=== PATIENT | male | born 1955 | race Caucasian/White ===

== ENCOUNTER 2016-07-14 09:06 | Emergency (ER) | payer MEDICARE, OTHER ==
[2016-07-14 09:14] VITALS: BP 181/101; PULSE 64; RESP 16; TEMP 97.3
--- NOTE | 2016-07-14 09:23 | ED ---
General Adult HPI - General Chief complaint: Skin/Abscess/Foreign Body Stated complaint: LEFT INDEX FINGER PROBLEM, NO TRAUMA Time Seen by Provider: 07/14/16 09:15 Source: patient, RN notes reviewed Mode of arrival: ambulatory Limitations: no limitations - History of Present Illness Initial comments: Patient is a 60-year-old male who presents emergency room today with a chief complaint of some dry skin to the left index finger. He states started 2 weeks ago. He admits that he had something similar in the past and was able to take care of at home. He states tried some Neosporin. He states tried multiple lotions. He states still seems to be trying out and the skin cracking and peeling. Patient does admit to some mild tenderness locally to the area with a burning type sensation at times. He denies any injury or trauma. He denies any other complaints associated symptoms. Patient denies any recent fever, chills, shortness of breath, chest pain, back pain, abdominal pain, nausea or vomiting, dysuria or hematuria, constipation or diarrhea, headaches or visual changes, or any other complaints. - Related Data Home Medications Medication Instructions Recorded Confirmed Atenolol [Atenolol] 100 mg PO DAILY 08/08/15 07/14/16 Cholecalciferol (Vitamin D3) 2,000 unit PO DAILY 08/08/15 07/14/16 [Vitamin D] Levothyroxine Sodium [Synthroid] 100 mcg PO DAILY 08/08/15 07/14/16 Lisinopril [Lisinopril] 40 mg PO DAILY 08/08/15 07/14/16 Ranitidine HCl [Zantac] 150 mg PO BID 08/08/15 07/14/16 Tamsulosin [Flomax] 0.4 mg PO DAILY 08/08/15 07/14/16 metFORMIN HCL [metFORMIN HCL] 1,000 mg PO AC-BID 08/08/15 07/14/16 Atorvastatin [Lipitor] 10 mg PO HS 02/29/16 07/14/16 glipiZIDE [Glucotrol] 5 mg PO AC-BRKFST 02/29/16 07/14/16 Previous Rx's Medication Instructions Recorded Azithromycin [Zithromax Tri-Florentin] 500 mg PO DAILY #3 tab 06/10/16 Mupirocin 2% Oint [Bactroban Oint] 1 applic TOPICAL TID #1 gm 07/14/16 Allergies Allergy/AdvReac Type Severity Reaction Status Date / Time Sulfa (Sulfonamide AdvReac Nausea & Verified 07/14/16 09:14 Antibiotics) Vomiting Review of Systems ROS Statement: Those systems with pertinent positive or pertinent negative responses have been documented in the HPI. ROS Other: All systems not noted in ROS Statement are negative. Past Medical History Past Medical History: Cancer, Diabetes Mellitus, Hyperlipidemia, Hypertension, Thyroid Disorder Additional Past Medical History / Comment(s): chronic back pain, colon CA, enlarged prostate History of Any Multi-Drug Resistant Organisms: None Reported Past Surgical History: Bowel Resection, Cholecystectomy Past Psychological History: No Psychological Hx Reported Smoking Status: Former smoker Past Alcohol Use History: None Reported Past Drug Use History: None Reported General Exam - General Exam Comments Initial Comments: General: The patient is awake and alert, in no distress, and does not appear acutely ill. Eye: Pupils are equal, round and reactive to light, extra-ocular movements are intact. No nystagmus. There is normal conjunctiva bilaterally. No signs of icterus. Neck: The neck is supple. Cardiovascular: There is a regular rate and rhythm. No murmur, rub or gallop is appreciated. Respiratory: Lungs are clear to auscultation, respirations are non-labored, breath sounds are equal. No wheezes, stridor, rales, or rhonchi. Musculoskeletal: Normal ROM, no tenderness. Strength 5/5. Sensation intact. Pulses equal bilaterally 2+. Neurological: A&O x 3. CN II-XII intact, There are no obvious motor or sensory deficits. Coordination appears grossly intact. Speech is normal. Skin: Patient does have some dried cracking and flaking skin of the distal aspect of the left index finger just above and below the DIP joint area. There is no deep tissue involvement. It is superficial. Sensations are intact. Refill less than 2 seconds. No lymphangitic streaking. Limitations: no limitations Course Vital Signs 07/14/16 09:12 Temperature 97.3 F L Pulse Rate 64 Respiratory 16 Rate Blood Pressure 181/101 O2 Sat by Pulse 98 Oximetry Disposition Clinical Impression: Dry skin dermatitis Disposition: HOME SELF-CARE Condition: Good Additional Instructions: Please use antibiotic cream as prescribed. Please follow-up the family doctor if symptoms are unimproved over the next 2-5 days. Please return to the emergency room symptoms increase or worsen or for any other concerns. Prescriptions: Mupirocin 2% Oint [Bactroban Oint] 1 applic TOPICAL TID #1 gm Time of Disposition: 09:23
== END 2016-07-14 09:31 | disposition home or self-care (01) ==
LOC: EC 09:06
DX: L85.3 Xerosis cutis (principal); E07.9 Disorder of thyroid, unspecified; E11.9 Type 2 diabetes mellitus without complications; N40.0 Benign prostatic hyperplasia without lower urinary tract symptoms; I10 Essential (primary) hypertension; G89.29 Other chronic pain; M54.9 Dorsalgia, unspecified; E78.5 Hyperlipidemia, unspecified; Z79.899 Other long term (current) drug therapy; Z79.84 Long term (current) use of oral hypoglycemic drugs; Z88.2 Allergy status to sulfonamides; Z85.038 Personal history of other malignant neoplasm of large intestine; Z87.891 Personal history of nicotine dependence
CPT/HCPCS: 83036; 84439; 99282

== ENCOUNTER → 2016-07-14 | Outpatient (CLI) | payer MEDICARE, OTHER ==
[2016-07-14 09:15] LABS: CH 32.5; CHCM 36.3; HCT 43.7 % (39.0-53.0); HDW 3.02; HGB 15.3 gm/dL (13.0-17.5); MCH 31.4 pg (25.0-35.0); MCHC 34.9 g/dL (31.0-37.0); MCV 90.1 fL (80.0-100.0); Mean Platelet Volume 8.2; RBC 4.86 m/uL (4.30-5.90); RDW 13.2 % (11.5-15.5); WBC 4.2 k/uL (3.8-10.6)
[2016-07-14 09:31] LABS: Appearance,Urine Clear (Clear); Bilirubin,Urine Negative (Negative); Glucose,Urine (UA) Negative (Negative); Ketones,Urine Negative (Negative); Leukocyte Esterase,Urine Negative (Negative); Nitrite,Urine Negative (Negative); Protein,Urine Negative (Negative); Specific Gravity,Urine 1.014 (1.001-1.035); UA Billing (MACRO vs. MICRO) CHEM; Urobilinogen,Urine <2.0 mg/dL (<2.0)
[2016-07-14 10:54] LABS: ALT 40 U/L (21-72); AST 18 U/L (17-59); Alkaline Phosphatase 128 U/L (38-126); Anion Gap 11 mmol/L; Blood Urea Nitrogen 11 mg/dL (9-20); Carbon Dioxide 23 mmol/L (22-30); Chloride 106 mmol/L (98-107); Cholesterol 87 mg/dL (<200); Glucose 150 mg/dL (74-99); HDL Cholesterol 37 mg/dL (40-60); Non-African American GFR(MDRD) >60 (>60 ml/min/1.73 sqM); Potassium 4.4 mmol/L (3.5-5.1); Sodium 140 mmol/L (137-145); Total Bilirubin 0.9 mg/dL (0.2-1.3); Total Protein 6.9 g/dL (6.3-8.2); Triglycerides 164 mg/dL (<150)
[2016-07-14 11:27] LABS: Prostate Specific Antigen 0.61 ng/mL (0.00-4.00)
[2016-07-14 11:28] LABS: Hemoglobin A1C 6.2 % (4.2-6.1)
== END | disposition home or self-care (01) ==
LOC: LABWHC1 08:40
PROVIDERS: ATTEND Family Medicine
DX: Z00.01 Encounter for general adult medical examination with abnormal findings (principal); E03.9 Hypothyroidism, unspecified; E11.9 Type 2 diabetes mellitus without complications
CPT/HCPCS: 36415; 80053; 80061; 81003; 82043; 82272; 83036; 84153; 84439; 84443; 85027

== ENCOUNTER 2016-08-06 08:51 | Emergency (ER) | payer MEDICARE, OTHER ==
[2016-08-06 09:01] VITALS: BP 166/86; PULSE 69; RESP 17; TEMP 96.8
--- NOTE | 2016-08-06 09:14 | ED ---
Upper Extremity HPI - General Chief Complaint: Extremity Injury, Upper Stated Complaint: hand pain Time Seen by Provider: 08/06/16 09:05 Source: patient, RN notes reviewed Mode of arrival: ambulatory Limitations: no limitations - History of Present Illness Initial Comments: 60-year-old male presents emergency Department with chief complaint of left hand pain. Patient states she's been having problems over the last 4 or so days. Patient states he has pain when he takes a fist along his second third and fourth digit at the MCPs. Patient denies any trauma. Patient has redness, bruising, paresthesias. Patient states that nothing really seems to make it feel better at this time other than rest. Patient states he is left-hand dominant though he has not done anything out of the usual over the last week. - Related Data Home Medications Medication Instructions Recorded Confirmed Atenolol [Atenolol] 100 mg PO DAILY 08/08/15 07/14/16 Cholecalciferol (Vitamin D3) 2,000 unit PO DAILY 08/08/15 07/14/16 [Vitamin D] Levothyroxine Sodium [Synthroid] 100 mcg PO DAILY 08/08/15 07/14/16 Lisinopril [Lisinopril] 40 mg PO DAILY 08/08/15 07/14/16 Ranitidine HCl [Zantac] 150 mg PO BID 08/08/15 07/14/16 Tamsulosin [Flomax] 0.4 mg PO DAILY 08/08/15 07/14/16 metFORMIN HCL [metFORMIN HCL] 1,000 mg PO AC-BID 08/08/15 07/14/16 Atorvastatin [Lipitor] 10 mg PO HS 02/29/16 07/14/16 glipiZIDE [Glucotrol] 5 mg PO AC-BRKFST 02/29/16 07/14/16 Previous Rx's Medication Instructions Recorded Azithromycin [Zithromax Tri-Florentin] 500 mg PO DAILY #3 tab 06/10/16 Mupirocin 2% Oint [Bactroban Oint] 1 applic TOPICAL TID #1 gm 07/14/16 Ibuprofen [Motrin] 600 mg PO Q8HR PRN #30 tab 08/06/16 Allergies Allergy/AdvReac Type Severity Reaction Status Date / Time Sulfa (Sulfonamide AdvReac Nausea & Verified 07/14/16 09:14 Antibiotics) Vomiting Review of Systems ROS Statement: Those systems with pertinent positive or pertinent negative responses have been documented in the HPI. ROS Other: All systems not noted in ROS Statement are negative. Past Medical History Past Medical History: Cancer, Diabetes Mellitus, Hyperlipidemia, Hypertension, Thyroid Disorder Additional Past Medical History / Comment(s): chronic back pain, colon CA, enlarged prostate History of Any Multi-Drug Resistant Organisms: None Reported Past Surgical History: Bowel Resection, Cholecystectomy Past Psychological History: No Psychological Hx Reported Smoking Status: Former smoker Past Alcohol Use History: None Reported Past Drug Use History: None Reported General Exam Limitations: no limitations General appearance: alert, in no apparent distress Head exam: Present: atraumatic, normocephalic, normal inspection Respiratory exam: Present: normal lung sounds bilaterally. Absent: respiratory distress, wheezes, rales, rhonchi, stridor Cardiovascular Exam: Present: regular rate, normal rhythm, normal heart sounds. 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 Absent: motor sensory deficit Course Vital Signs 08/06/16 08:58 Temperature 96.8 F L Pulse Rate 69 Respiratory 17 Rate Blood Pressure 166/86 O2 Sat by Pulse 94 L Oximetry Medical Decision Making - Medical Decision Making 60-year-old male presented for left hand pain. There is no acute osseous lesion no trauma. He has no erythema no evidence of infection. This may be related to tendinitis or an atypical presentation of carpal tunnel. Patient was started on anti-inflammatories at this time as he is diabetic and steroids will not be a good option. Patient will follow-up with primary care physician return parameters were discussed. Disposition Clinical Impression: Left hand pain Disposition: HOME SELF-CARE Condition: Stable Instructions: Hand Sprain (ED) Additional Instructions: Please return to the Emergency Department if symptoms worsen or any other concerns. Prescriptions: Ibuprofen [Motrin] 600 mg PO Q8HR PRN #30 tab PRN Reason: Pain Time of Disposition: 09:44
--- NOTE | 2016-08-06 09:35 | XR ---
EXAMINATION TYPE: XR hand complete LT DATE OF EXAM: 08/06/2016 9:32 AM COMPARISON: NONE HISTORY: [id number] male hand pain and swelling, third, fourth, and fifth fingers. TECHNIQUE: 3 views FINDINGS: No marginal erosions or soft tissue calcification seen. No acute fracture, subluxation, or dislocatio n. Mild degenerative changes seen at the base of the thumb and minimal osteoarthritic spurring such a s at the fourth DIP joint. IMPRESSION: No acute osseous abnormality seen.
== END 2016-08-06 10:08 | disposition home or self-care (01) ==
LOC: EC 08:51
DX: M79.642 Pain in left hand (principal); E11.9 Type 2 diabetes mellitus without complications; E07.9 Disorder of thyroid, unspecified; E78.5 Hyperlipidemia, unspecified; I10 Essential (primary) hypertension; N40.0 Benign prostatic hyperplasia without lower urinary tract symptoms; Z79.899 Other long term (current) drug therapy; Z88.2 Allergy status to sulfonamides; Z85.038 Personal history of other malignant neoplasm of large intestine; Z79.84 Long term (current) use of oral hypoglycemic drugs; Z87.891 Personal history of nicotine dependence; X58.XXXA Exposure to other specified factors, initial encounter
CPT/HCPCS: 99283

== ENCOUNTER 2016-12-12 13:45 | Emergency (ER) | payer MEDICARE, OTHER ==
[2016-12-12] MEDS ORDERED: SODIUM CHLORIDE 0.9% 500 ML IV STA (14:12)
[2016-12-12] MEDS ORDERED: ONDANSETRON 4 MG/2 ML VIAL IVP STA (14:12)
[2016-12-12] MEDS ORDERED: SODIUM CHLORIDE 0.9% 1,000 ML IV STA ×3 (14:12→15:11)
[2016-12-12] MEDS ORDERED: MORPHINE SULFATE 4 MG/ML SYRINGE IV STA (14:12)
--- NOTE | 2016-12-12 14:20 | ED ---
General Adult HPI - General Chief complaint: Abdominal Pain Stated complaint: Weakness Time Seen by Provider: 12/12/16 14:12 Source: patient, RN notes reviewed, old records reviewed Mode of arrival: ambulatory Limitations: no limitations - History of Present Illness Initial comments: This is a 61-year-old nausea for the abdominal pain. Patient presented with weakness lightheadedness dizziness. Heart racing abdominal pain diarrhea and not feeling well. Patient does have a significant medical history but no recent similar symptoms. No he did feel feverish and did feel sweaty. Denies chest pain or shortness of breath. Mild nausea no vomiting. No versus a catheter travel history. Again no fever. Patient ate tonight and then began to feel slightly and not well. - Related Data Home Medications Medication Instructions Recorded Confirmed Atenolol [Atenolol] 50 mg PO DAILY 08/08/15 12/12/16 Cholecalciferol (Vitamin D3) 2,000 unit PO HS 08/08/15 12/12/16 [Vitamin D] Levothyroxine Sodium [Synthroid] 100 mcg PO DAILY 08/08/15 12/12/16 Lisinopril [Lisinopril] 40 mg PO DAILY 08/08/15 12/12/16 Ranitidine HCl [Zantac] 150 mg PO BID 08/08/15 12/12/16 Tamsulosin [Flomax] 0.4 mg PO HS 08/08/15 12/12/16 metFORMIN HCL [metFORMIN HCL] 500 mg PO AC-BID 08/08/15 12/12/16 Atorvastatin [Lipitor] 10 mg PO MOWEFR 02/29/16 12/12/16 glipiZIDE [Glucotrol] 5 mg PO DAILY 02/29/16 12/12/16 Allergies Allergy/AdvReac Type Severity Reaction Status Date / Time Sulfa (Sulfonamide AdvReac Nausea & Verified 12/12/16 14:46 Antibiotics) Vomiting Review of Systems ROS Statement: Those systems with pertinent positive or pertinent negative responses have been documented in the HPI. ROS Other: All systems not noted in ROS Statement are negative. Past Medical History Past Medical History: Cancer, Diabetes Mellitus, Hyperlipidemia, Hypertension, Thyroid Disorder Additional Past Medical History / Comment(s): chronic back pain, colon CA, enlarged prostate History of Any Multi-Drug Resistant Organisms: None Reported Past Surgical History: Bowel Resection, Cholecystectomy Past Psychological History: No Psychological Hx Reported Smoking Status: Former smoker Past Alcohol Use History: None Reported Past Drug Use History: None Reported General Exam Limitations: no limitations General appearance: alert, in no apparent distress Head exam: Present: atraumatic, normocephalic, normal inspection Eye exam: Present: normal appearance, PERRL, EOMI. Absent: scleral icterus, conjunctival injection, periorbital swelling ENT exam: Present: normal exam, mucous membranes moist Neck exam: Present: normal inspection. Absent: tenderness, meningismus, lymphadenopathy Respiratory exam: Present: normal lung sounds bilaterally. Absent: respiratory distress, wheezes, rales, rhonchi, stridor Cardiovascular Exam: Present: normal rhythm, tachycardia, normal heart sounds. Absent: systolic murmur, diastolic murmur, rubs, gallop, clicks GI/Abdominal exam: Present: soft, normal bowel sounds. Absent: distended, tenderness, guarding, rebound, rigid Extremities exam: Present: normal inspection, full ROM, normal capillary refill. Absent: tenderness, pedal edema, joint swelling, calf tenderness Back exam: Present: normal inspection Neurological exam: Present: alert, oriented X3, CN II-XII intact Psychiatric exam: Present: normal affect, normal mood Skin exam: Present: warm, dry, intact, normal color. Absent: rash Course Vital Signs 12/12/16 12/12/16 14:05 14:07 Temperature 97.5 F L Pulse Rate 115 H Respiratory 18 Rate Blood Pressure 190/107 186/104 O2 Sat by Pulse 96 Oximetry Medical Decision Making - Medical Decision Making 61 male to the ER for evaluation of abdominal pain, nausea, diaphoresis and diarrhea. At this point patient's symptoms are completely resolved, lab work and CT abdomen and pelvis are negative for acute disease. Patient is okay for discharge over this time he has no complaints - Lab Data Result diagrams: 12/12/16 14:28 12/12/16 14:28 Lab Results 12/12/16 12/12/16 12/12/16 Range/Units 14:28 14:28 14:28 WBC 6.8 (3.8-10.6) k/uL RBC 4.66 (4.30-5.90) m/uL Hgb 15.5 (13.0-17.5) gm/dL Hct 42.0 (39.0-53.0) % MCV 90.1 (80.0-100.0) fL MCH 33.2 (25.0-35.0) pg MCHC 36.8 (31.0-37.0) g/dL RDW 12.9 (11.5-15.5) % Plt Count 227 (150-450) k/uL Neutrophils % 69 % Lymphocytes % 18 % Monocytes % 6 % Eosinophils % 3 % Basophils % 1 % Neutrophils # 4.8 (1.3-7.7) k/uL Lymphocytes # 1.2 (1.0-4.8) k/uL Monocytes # 0.4 (0-1.0) k/uL Eosinophils # 0.2 (0-0.7) k/uL Basophils # 0.1 (0-0.2) k/uL PT (9.0-12.0) sec INR (<1.1) APTT (22.0-30.0) sec Sodium 140 (137-145) mmol/L Potassium 3.7 (3.5-5.1) mmol/L Chloride 103 (98-107) mmol/L Carbon Dioxide 23 (22-30) mmol/L Anion Gap 14 mmol/L BUN 13 (9-20) mg/dL Creatinine 0.85 (0.66-1.25) mg/dL Est GFR (MDRD) Af Amer >60 (>60 ml/min/1.73 sqM) Est GFR (MDRD) Non-Af >60 (>60 ml/min/1.73 sqM) Glucose 208 H (74-99) mg/dL Plasma Lactic Acid Ari (0.7-2.0) mmol/L Calcium 9.3 (8.4-10.2) mg/dL Total Bilirubin 1.0 (0.2-1.3) mg/dL AST 27 (17-59) U/L ALT 48 (21-72) U/L Alkaline Phosphatase 152 H (38-126) U/L Total Creatine Kinase 91 (55-170) U/L CK-MB (CK-2) 1.0 (0.0-2.4) ng/mL CK-MB (CK-2) Rel Index 1.1 Troponin I <0.012 (0.000-0.034) ng/mL Total Protein 7.2 (6.3-8.2) g/dL Albumin 4.5 (3.5-5.0) g/dL Amylase <30 L (30-110) U/L Lipase 86 (23-300) U/L Urine Color Urine Appearance (Clear) Urine pH (5.0-8.0) Ur Specific Topping (1.001-1.035) Urine Protein (Negative) Urine Glucose (UA) (Negative) Urine Ketones (Negative) Urine Blood (Negative) Urine Nitrite (Negative) Urine Bilirubin (Negative) Urine Urobilinogen (<2.0) mg/dL Ur Leukocyte Esterase (Negative) Urine WBC (0-5) /hpf Ur Squamous Epith Cells (0-4) /hpf Amorphous Sediment (None) /hpf Urine Mucus (None) /hpf 12/12/16 12/12/16 12/12/16 Range/Units 14:28 14:35 14:58 WBC (3.8-10.6) k/uL RBC (4.30-5.90) m/uL Hgb (13.0-17.5) gm/dL Hct (39.0-53.0) % MCV (80.0-100.0) fL MCH (25.0-35.0) pg MCHC (31.0-37.0) g/dL RDW (11.5-15.5) % Plt Count (150-450) k/uL Neutrophils % % Lymphocytes % % Monocytes % % Eosinophils % % Basophils % % Neutrophils # (1.3-7.7) k/uL Lymphocytes # (1.0-4.8) k/uL Monocytes # (0-1.0) k/uL Eosinophils # (0-0.7) k/uL Basophils # (0-0.2) k/uL PT 10.4 (9.0-12.0) sec INR 1.0 (<1.1) APTT 28.4 (22.0-30.0) sec Sodium (137-145) mmol/L Potassium (3.5-5.1) mmol/L Chloride (98-107) mmol/L Carbon Dioxide (22-30) mmol/L Anion Gap mmol/L BUN (9-20) mg/dL Creatinine (0.66-1.25) mg/dL Est GFR (MDRD) Af Amer (>60 ml/min/1.73 sqM) Est GFR (MDRD) Non-Af (>60 ml/min/1.73 sqM) Glucose (74-99) mg/dL Plasma Lactic Acid Ari 3.1 H* (0.7-2.0) mmol/L Calcium (8.4-10.2) mg/dL Total Bilirubin (0.2-1.3) mg/dL AST (17-59) U/L ALT (21-72) U/L Alkaline Phosphatase (38-126) U/L Total Creatine Kinase (55-170) U/L CK-MB (CK-2) (0.0-2.4) ng/mL CK-MB (CK-2) Rel Index Troponin I (0.000-0.034) ng/mL Total Protein (6.3-8.2) g/dL Albumin (3.5-5.0) g/dL Amylase (30-110) U/L Lipase (23-300) U/L Urine Color Yellow Urine Appearance Clear (Clear) Urine pH 5.0 (5.0-8.0) Ur Specific Topping 1.015 (1.001-1.035) Urine Protein Trace H (Negative) Urine Glucose (UA) Negative (Negative) Urine Ketones Negative (Negative) Urine Blood Trace H (Negative) Urine Nitrite Negative (Negative) Urine Bilirubin Negative (Negative) Urine Urobilinogen <2.0 (<2.0) mg/dL Ur Leukocyte Esterase Negative (Negative) Urine WBC 1 (0-5) /hpf Ur Squamous Epith Cells <1 (0-4) /hpf Amorphous Sediment Rare H (None) /hpf Urine Mucus Rare H (None) /hpf - Radiology Data Radiology results: report reviewed (CT pelvis negative for acute disease), image reviewed Disposition Clinical Impression: Abdominal pain Disposition: HOME SELF-CARE Condition: Good Instructions: Abdominal Pain (ED) Referrals: Ant Araya DO [Primary Care Provider] - 1-2 days
[2016-12-12 14:39] LABS: Basophils # (A) 0.1 k/uL (0-0.2); Basophils % (A) 1 %; CH 33.1; CHCM 36.9; Eosinophils # (A) 0.2 k/uL (0-0.7); Eosinophils % (A) 3 %; HDW 2.96; HGB 15.5 gm/dL (13.0-17.5); Luc # (Auto) 0.16; Luc % (Auto) 2; Lymphocytes # (A) 1.2 k/uL (1.0-4.8); Lymphocytes % (A) 18 %; MCH 33.2 pg (25.0-35.0); MCHC 36.8 g/dL (31.0-37.0); MCV 90.1 fL (80.0-100.0); Mean Platelet Volume 8.5; Monocytes # (A) 0.4 k/uL (0-1.0); Monocytes % (A) 6 %; Neutrophils # (A) 4.8 k/uL (1.3-7.7); Neutrophils % (A) 69 %; RBC 4.66 m/uL (4.30-5.90); RDW 12.9 % (11.5-15.5); WBC 6.8 k/uL (3.8-10.6); WBC (Perox) 6.59
[2016-12-12 14:48] LABS: Amorphous Sediment,Urine Rare /hpf; Appearance,Urine Clear (Clear); Bilirubin,Urine Negative (Negative); Glucose,Urine (UA) Negative (Negative); Ketones,Urine Negative (Negative); Leukocyte Esterase,Urine Negative (Negative); Mucus,Urine Rare /hpf; Nitrite,Urine Negative (Negative); Particle Count 2908; Protein,Urine Trace (Negative); Specific Gravity,Urine 1.015 (1.001-1.035); Squamous Epithelial Cell,Urine <1 /hpf (0-4); UA Billing (MACRO vs. MICRO) MICRO; Urobilinogen,Urine <2.0 mg/dL (<2.0); WBC,Urine 1 /hpf (0-5)
[2016-12-12 14:50] LABS: ALT 48 U/L (21-72); AST 27 U/L (17-59); Alkaline Phosphatase 152 U/L (38-126); Amylase <30 U/L (30-110); Anion Gap 14 mmol/L; Blood Urea Nitrogen 13 mg/dL (9-20); Calcium 9.3 mg/dL (8.4-10.2); Carbon Dioxide 23 mmol/L (22-30); Chloride 103 mmol/L (98-107); Glucose 208 mg/dL (74-99); Non-African American GFR(MDRD) >60 (>60 ml/min/1.73 sqM); Potassium 3.7 mmol/L (3.5-5.1); Sodium 140 mmol/L (137-145); Total Protein 7.2 g/dL (6.3-8.2)
[2016-12-12 15:02] LABS: Creatine Kinase 91 U/L (55-170)
--- NOTE | 2016-12-12 15:03 | XR ---
EXAMINATION TYPE: XR KUB DATE OF EXAM: 12/12/2016 COMPARISON: 09/02/2012 HISTORY: Diarrhea and abdominal pain TECHNIQUE: 2 views FINDINGS: There are clips from cholecystectomy. Bowel gas pattern is normal. There is no sign of inte stinal obstruction or pneumoperitoneum. Fecal pattern is normal. There is a 1 cm calcification over t he left kidney. Lung bases are clear. IMPRESSION: Nonacute abdomen. Possible new left renal calculus compared to old exam.
[2016-12-12] MEDS ORDERED: RX INFO: IV CONTRAST WAS GIVEN 1 EACH MISC MISCELLANE PRN (15:11)
[2016-12-12 15:13] LABS: Troponin I <0.012 ng/mL (0.000-0.034)
[2016-12-12 15:18] LABS: Partial Thromboplastin Time 28.4 sec (22.0-30.0); Prothrombin Time 10.4 sec (9.0-12.0)
--- NOTE | 2016-12-12 15:44 | CT ---
EXAMINATION TYPE: CT abdomen pelvis w con DATE OF EXAM: 12/12/2016 COMPARISON: 02/29/2012 HISTORY: Generalized pain CT DLP: 2699.6 mGycm Automated exposure control for dose reduction was used. TECHNIQUE: Helical acquisition of images was performed from the lung bases through the pelvis. CONTRAST: Performed without Oral Contrast and with IV Contrast, patient injected with 100 mL of Omnipaque 300. FINDINGS: Lung bases are clear of consolidation. There is no pleural effusion. Heart is probably enlarged. There are clips from cholecystectomy. There is a 1 cm cyst in the anterior right lobe of the liver.. Spleen appears normal. Bile ducts are not dilated. There is no pancreatic mass. There is no adrenal mass. Kidneys show satisfactory contrast opacification. There is a 1.5 cm exophyt ic high density focus on the lateral left kidney consistent with an atypical cyst. This is unchanged compared to old exam. There is no hydronephrosis. There is no retroperitoneal adenopathy. There is no ascites. Appendix appears normal. I see no intestinal wall thickening. There are no dilated loops. B ladder distends smoothly. There is no bony destructive process. There is a 7 mm calculus in the left kidney. There are small multiple right renal calculi that measure up to 4 mm. There are multiple tiny cysts in the right kidney. IMPRESSION: NONOBSTRUCTING BILATERAL RENAL CALCULI. NO SIGN OF ACUTE ABDOMEN AND PELVIS. NO ADVERSE CHANGE COMPAR ED TO OLD EXAM.
[2016-12-12 16:20] VITALS: PULSE 122; RESP 15; TEMP 97.9
[2016-12-12 16:39] VITALS: BP 178/83
== END 2016-12-12 16:39 | disposition home or self-care (01) ==
LOC: EC 13:45
DX: R10.9 Unspecified abdominal pain (principal); R11.0 Nausea; R42 Dizziness and giddiness; R61 Generalized hyperhidrosis; R19.7 Diarrhea, unspecified; R53.1 Weakness; R00.2 Palpitations; E11.9 Type 2 diabetes mellitus without complications; I10 Essential (primary) hypertension; E78.5 Hyperlipidemia, unspecified; E07.9 Disorder of thyroid, unspecified; Z85.038 Personal history of other malignant neoplasm of large intestine; Z87.891 Personal history of nicotine dependence; Z79.84 Long term (current) use of oral hypoglycemic drugs; Z79.899 Other long term (current) drug therapy; Z88.2 Allergy status to sulfonamides
CPT/HCPCS: 36415; 80053; 82150; 82550; 82553; 83605; 83690; 84484; 85025; 85610; 85730; 81001; 87086; 74000; 74177; 99285; 96374; 96375; 96360; 96361 ×2; J2270; J2405; Q9967

== ENCOUNTER 2017-01-04 04:59 | Emergency (ER) | payer MEDICARE, OTHER ==
--- NOTE | 2017-01-04 05:19 | ED ---
General Adult HPI - General Chief complaint: ENT Stated complaint: Sore Throat/Nausea Time Seen by Provider: 01/04/17 05:10 Source: patient, RN notes reviewed Mode of arrival: wheelchair Limitations: no limitations - History of Present Illness Initial comments: Patient is a pleasant 61-year-old male presenting to the emergency department with sore throat. Patient states onset was last night. Symptoms have progressed. Throat feels scratchy. Patient also has congestion. Patient has some sinus congestion. Patient denies any chest discomfort or difficulty in breathing. - Related Data Home Medications Medication Instructions Recorded Confirmed Atenolol [Atenolol] 50 mg PO DAILY 08/08/15 12/12/16 Cholecalciferol (Vitamin D3) 2,000 unit PO HS 08/08/15 12/12/16 [Vitamin D] Levothyroxine Sodium [Synthroid] 100 mcg PO DAILY 08/08/15 12/12/16 Lisinopril [Lisinopril] 40 mg PO DAILY 08/08/15 12/12/16 Ranitidine HCl [Zantac] 150 mg PO BID 08/08/15 12/12/16 Tamsulosin [Flomax] 0.4 mg PO HS 08/08/15 12/12/16 metFORMIN HCL [metFORMIN HCL] 500 mg PO AC-BID 08/08/15 12/12/16 Atorvastatin [Lipitor] 10 mg PO MOWEFR 02/29/16 12/12/16 glipiZIDE [Glucotrol] 5 mg PO DAILY 02/29/16 12/12/16 Previous Rx's Medication Instructions Recorded Amoxicillin 500 mg PO Q8H #30 capsule 01/04/17 Allergies Allergy/AdvReac Type Severity Reaction Status Date / Time Sulfa (Sulfonamide AdvReac Nausea & Verified 12/12/16 14:46 Antibiotics) Vomiting Review of Systems ROS Statement: Those systems with pertinent positive or pertinent negative responses have been documented in the HPI. ROS Other: All systems not noted in ROS Statement are negative. Constitutional: Denies: fever Eyes: Denies: eye pain ENT: Reports: throat pain. Denies: ear pain Respiratory: Denies: dyspnea Cardiovascular: Denies: chest pain Endocrine: Denies: fatigue Gastrointestinal: Reports: nausea. Denies: abdominal pain Genitourinary: Denies: dysuria Musculoskeletal: Denies: back pain Skin: Denies: rash Neurological: Denies: weakness Past Medical History Past Medical History: Cancer, Diabetes Mellitus, Hyperlipidemia, Hypertension, Thyroid Disorder Additional Past Medical History / Comment(s): chronic back pain, colon CA, enlarged prostate History of Any Multi-Drug Resistant Organisms: None Reported Past Surgical History: Bowel Resection, Cholecystectomy Past Psychological History: No Psychological Hx Reported Smoking Status: Former smoker Past Alcohol Use History: None Reported Past Drug Use History: None Reported General Exam Limitations: no limitations General appearance: alert, in no apparent distress Head exam: Present: atraumatic Eye exam: Present: normal appearance, PERRL ENT exam: Present: other (Mild pharyngeal erythema) Neck exam: Present: normal inspection, full ROM. Absent: tenderness, meningismus, lymphadenopathy Respiratory exam: Present: normal lung sounds bilaterally Cardiovascular Exam: Present: regular rate, normal rhythm GI/Abdominal exam: Present: soft. Absent: tenderness Back exam: Present: normal inspection Neurological exam: Present: alert Psychiatric exam: Present: normal affect, normal mood Skin exam: Present: normal color Course Vital Signs 01/04/17 05:07 Temperature 98.1 F Pulse Rate 84 Respiratory 16 Rate Blood Pressure 166/99 O2 Sat by Pulse 97 Oximetry EKG Findings - EKG Comments: EKG Findings:: Normal sinus rhythm 86. UT 148. QRS 94. QT 380. QTC 454. Left axis. LVH criteria. No acute ST change. Medical Decision Making - Medical Decision Making Patient reevaluated and resting comfortably in bed. Patient updated on results and plan. Patient is happy with antibiotic prescription and discharge. - Lab Data Lab Results 01/04/17 Range/Units 05:06 POC Glucose (mg/dL) 180 H (75-99) mg/dL POC Glu Butt Sawyer ID Dana Fontanez - Radiology Data Radiology results: image reviewed (Chest x-ray shows hypoventilation.) Disposition Clinical Impression: Pharyngitis Disposition: HOME SELF-CARE Condition: Stable Instructions: Pharyngitis (ED) Additional Instructions: Please follow-up with your doctor this week. Return for chest pain, difficulty breathing, not tolerating fluids, worsening symptoms or other concerns. Prescriptions: Amoxicillin 500 mg PO Q8H #30 capsule Referrals: Ant Araya DO [Primary Care Provider] - 1-2 days Time of Disposition: 06:29
[2017-01-04 05:21] LABS: Glucose,Whole Blood 180 mg/dL (75-99)
--- NOTE | 2017-01-04 06:19 | XR ---
EXAM: XR Chest, 2 Views CLINICAL HISTORY: sore throat, stuffy nose, cough TECHNIQUE: Frontal and lateral views of the chest. COMPARISON: Chest x-ray 08/08/15 FINDINGS: Lungs: Hypoventilatory lungs with bibasilar atelectasis. Pleural space: Unremarkable. No pneumothorax. Heart: Unremarkable. No cardiomegaly. Mediastinum: Unremarkable. Bones/joints: Unremarkable. IMPRESSION: Hypoventilatory lungs with bibasilar atelectasis.
[2017-01-04 06:48] VITALS: BP 146/80; PULSE 81; RESP 17; TEMP 98.2
== END 2017-01-04 06:47 | disposition home or self-care (01) ==
LOC: EC 04:59
DX: J02.9 Acute pharyngitis, unspecified (principal); E11.9 Type 2 diabetes mellitus without complications; E78.5 Hyperlipidemia, unspecified; I10 Essential (primary) hypertension; E07.9 Disorder of thyroid, unspecified; Z85.038 Personal history of other malignant neoplasm of large intestine; Z87.891 Personal history of nicotine dependence; Z79.84 Long term (current) use of oral hypoglycemic drugs; Z79.899 Other long term (current) drug therapy; Z88.2 Allergy status to sulfonamides
CPT/HCPCS: 36415; 71020; 93005; 99283

== ENCOUNTER 2017-01-06 01:20 | Inpatient (IN) | payer MEDICARE, OTHER ==
[2017-01-06] MEDS ORDERED: IPRATROPIUM-ALBUTEROL 3 ML NEB INHALATION STA ×2 (02:19→03:46)
--- NOTE | 2017-01-06 02:24 | ED ---
General Adult HPI <Todd García J - Last Filed: 01/06/17 03:59> - General Source: patient, RN notes reviewed Mode of arrival: ambulatory Limitations: no limitations <Amee Holley - Last Filed: 01/06/17 04:15> - General Chief complaint: Headache Stated complaint: revisit Time Seen by Provider: 01/06/17 01:45 - History of Present Illness Initial comments: Patient is a 61-year-old male presents to the emergency room for evaluation of cough. Patient states she's here about 2 days ago for sore throat and cough. Patient states he was sent home on antibiotics. Patient states she's been taking amoxicillin. Patient states that the throat pain has improved. Patient states that over the past 2 nights he has been unable to sleep. Patient states after dozes off few weeks back up and goes into a coughing fit. Patient does state he has been wheezing over the past 2 days. Patient states this is not normal for him. Patient denies history of asthma or COPD. Patient states he does facility short of breath. Patient states having a productive cough. Patient states she's been having on and off sweats. Patient is nausea or vomiting. Patient states he's been on and off dizzy. Patient denies abdominal pain. (Amee Holley) - Related Data Home Medications Medication Instructions Recorded Confirmed Atenolol [Atenolol] 50 mg PO DAILY 08/08/15 01/06/17 Cholecalciferol (Vitamin D3) 2,000 unit PO HS 08/08/15 01/06/17 [Vitamin D] Levothyroxine Sodium [Synthroid] 100 mcg PO DAILY 08/08/15 01/06/17 Lisinopril [Lisinopril] 40 mg PO DAILY 08/08/15 01/06/17 Ranitidine HCl [Zantac] 150 mg PO BID 08/08/15 01/06/17 Tamsulosin [Flomax] 0.4 mg PO HS 08/08/15 01/06/17 metFORMIN HCL [metFORMIN HCL] 500 mg PO AC-BID 08/08/15 01/06/17 Atorvastatin [Lipitor] 10 mg PO MOWEFR 02/29/16 01/06/17 glipiZIDE [Glucotrol] 5 mg PO DAILY 02/29/16 01/06/17 Previous Rx's Medication Instructions Recorded Amoxicillin 500 mg PO Q8H #30 capsule 01/04/17 Allergies Allergy/AdvReac Type Severity Reaction Status Date / Time Sulfa (Sulfonamide AdvReac Nausea & Verified 01/06/17 01:37 Antibiotics) Vomiting Review of Systems ROS Other: All systems not noted in ROS Statement are negative. <Todd García - Last Filed: 01/06/17 03:59> ROS Other: All systems not noted in ROS Statement are negative. <Amee Holley - Last Filed: 01/06/17 04:15> ROS Statement: Those systems with pertinent positive or pertinent negative responses have been documented in the HPI. Past Medical History Past Medical History: Cancer, Diabetes Mellitus, Hyperlipidemia, Hypertension, Thyroid Disorder Additional Past Medical History / Comment(s): chronic back pain, colon CA, enlarged prostate History of Any Multi-Drug Resistant Organisms: None Reported Past Surgical History: Bowel Resection, Cholecystectomy Past Psychological History: No Psychological Hx Reported Smoking Status: Former smoker Past Alcohol Use History: None Reported Past Drug Use History: None Reported <Amee Holley - Last Filed: 01/06/17 04:15> General Exam <Todd García - Last Filed: 01/06/17 03:59> Limitations: no limitations General appearance: alert, in no apparent distress Head exam: Present: atraumatic, normocephalic, normal inspection Eye exam: Present: normal appearance ENT exam: Present: normal exam Neck exam: Present: normal inspection Respiratory exam: Present: wheezes (diffuse expiratory wheezing). Absent: respiratory distress Cardiovascular Exam: Present: regular rate, normal rhythm, normal heart sounds Extremities exam: Present: normal inspection Back exam: Present: normal inspection Neurological exam: Present: alert, oriented X3, CN II-XII intact, normal gait Psychiatric exam: Present: normal affect, normal mood Skin exam: Present: warm, dry, intact, normal color. Absent: rash <Amee Holley - Last Filed: 01/06/17 04:15> - General Exam Comments Initial Comments: sitting in exam room, no acute distress. (Amee Holley) EKG Findings - EKG Comments: EKG Findings:: Normal sinus rhythm, ventricular rate 87 bpm, PA interval 150 ms , QRS duration 92 ms, QT/QTC 362/435 ms <Amee Holley - Last Filed: 01/06/17 04:15> Medical Decision Making - Lab Data Result diagrams: 01/06/17 02:20 01/06/17 02:20 <Todd García - Last Filed: 01/06/17 03:59> - Lab Data Result diagrams: 01/06/17 02:20 01/06/17 02:20 <Amee Holley - Last Filed: 01/06/17 04:15> - Medical Decision Making The patient was seen and examined. All diagnostics were reviewed. The case is discussed with the PA and I agree with the findings as documented. Case will be discussed with internal medicine in the near future. (Todd García) patient is a 61-year-old male presents to the emergency room for evaluation of cough/shortness of breath. Patient is audibly wheezing. Patient denies smoking. Patient denies history of COPD or asthma. Patient's O2 sat went down to 89%. Patient placed on 2 L of supplemental O2 nasal cannula. Chest x-ray shows no acute findings. Patient will be treated for bronchitis/hypoxia. Patient will be placed on antibiotics and steroids and breathing treatments every 4 hours. (Amee Holley) - Lab Data Lab Results 01/06/17 01/06/17 01/06/17 Range/Units 02:20 02:20 02:20 WBC 7.8 (3.8-10.6) k/uL RBC 4.38 (4.30-5.90) m/uL Hgb 14.3 (13.0-17.5) gm/dL Hct 40.2 (39.0-53.0) % MCV 91.8 (80.0-100.0) fL MCH 32.7 (25.0-35.0) pg MCHC 35.6 (31.0-37.0) g/dL RDW 13.6 (11.5-15.5) % Plt Count 185 (150-450) k/uL Neutrophils % 78 % Lymphocytes % 10 % Monocytes % 7 % Eosinophils % 4 % Basophils % 1 % Neutrophils # 6.1 (1.3-7.7) k/uL Lymphocytes # 0.8 L (1.0-4.8) k/uL Monocytes # 0.5 (0-1.0) k/uL Eosinophils # 0.3 (0-0.7) k/uL Basophils # 0.0 (0-0.2) k/uL PT (9.0-12.0) sec INR (<1.2) APTT (22.0-30.0) sec D-Dimer (<0.60) mg/L FEU Sodium 140 (137-145) mmol/L Potassium 3.5 (3.5-5.1) mmol/L Chloride 105 (98-107) mmol/L Carbon Dioxide 24 (22-30) mmol/L Anion Gap 11 mmol/L BUN 11 (9-20) mg/dL Creatinine 0.80 (0.66-1.25) mg/dL Est GFR (MDRD) Af Amer >60 (>60 ml/min/1.73 sqM) Est GFR (MDRD) Non-Af >60 (>60 ml/min/1.73 sqM) Glucose 149 H (74-99) mg/dL Calcium 8.8 (8.4-10.2) mg/dL Total Bilirubin 1.3 (0.2-1.3) mg/dL AST 20 (17-59) U/L ALT 40 (21-72) U/L Alkaline Phosphatase 165 H (38-126) U/L Total Creatine Kinase 165 (55-170) U/L CK-MB (CK-2) 0.9 (0.0-2.4) ng/mL CK-MB (CK-2) Rel Index 0.5 Troponin I <0.012 (0.000-0.034) ng/mL NT-Pro-B Natriuret Pep pg/mL Total Protein 6.4 (6.3-8.2) g/dL Albumin 3.9 (3.5-5.0) g/dL 01/06/17 01/06/17 Range/Units 02:20 02:20 WBC (3.8-10.6) k/uL RBC (4.30-5.90) m/uL Hgb (13.0-17.5) gm/dL Hct (39.0-53.0) % MCV (80.0-100.0) fL MCH (25.0-35.0) pg MCHC (31.0-37.0) g/dL RDW (11.5-15.5) % Plt Count (150-450) k/uL Neutrophils % % Lymphocytes % % Monocytes % % Eosinophils % % Basophils % % Neutrophils # (1.3-7.7) k/uL Lymphocytes # (1.0-4.8) k/uL Monocytes # (0-1.0) k/uL Eosinophils # (0-0.7) k/uL Basophils # (0-0.2) k/uL PT 10.3 (9.0-12.0) sec INR 1.0 (<1.2) APTT 28.5 (22.0-30.0) sec D-Dimer 0.36 (<0.60) mg/L FEU Sodium (137-145) mmol/L Potassium (3.5-5.1) mmol/L Chloride (98-107) mmol/L Carbon Dioxide (22-30) mmol/L Anion Gap mmol/L BUN (9-20) mg/dL Creatinine (0.66-1.25) mg/dL Est GFR (MDRD) Af Amer (>60 ml/min/1.73 sqM) Est GFR (MDRD) Non-Af (>60 ml/min/1.73 sqM) Glucose (74-99) mg/dL Calcium (8.4-10.2) mg/dL Total Bilirubin (0.2-1.3) mg/dL AST (17-59) U/L ALT (21-72) U/L Alkaline Phosphatase (38-126) U/L Total Creatine Kinase (55-170) U/L CK-MB (CK-2) (0.0-2.4) ng/mL CK-MB (CK-2) Rel Index Troponin I (0.000-0.034) ng/mL NT-Pro-B Natriuret Pep 245 pg/mL Total Protein (6.3-8.2) g/dL Albumin (3.5-5.0) g/dL Disposition <Todd García - Last Filed: 01/06/17 03:59> Decision Date: 01/06/17 <Amee Holley - Last Filed: 01/06/17 04:15> Clinical Impression: Bronchitis, Hypoxia Disposition: ADMITTED IP TO THIS HOSP Condition: Stable Referrals: Ant Araya DO [Primary Care Provider] - 1-2 days
[2017-01-06 02:50] LABS: Basophils % (A) 1 %; CH 33.7; CHCM 36.9; Eosinophils # (A) 0.3 k/uL (0-0.7); Eosinophils % (A) 4 %; HCT 40.2 % (39.0-53.0); HDW 2.91; HGB 14.3 gm/dL (13.0-17.5); Luc # (Auto) 0.11; Luc % (Auto) 1; Lymphocytes # (A) 0.8 k/uL (1.0-4.8); Lymphocytes % (A) 10 %; MCH 32.7 pg (25.0-35.0); MCHC 35.6 g/dL (31.0-37.0); MCV 91.8 fL (80.0-100.0); Mean Platelet Volume 7.3; Monocytes # (A) 0.5 k/uL (0-1.0); Monocytes % (A) 7 %; Neutrophils # (A) 6.1 k/uL (1.3-7.7); Neutrophils % (A) 78 %; RBC 4.38 m/uL (4.30-5.90); RDW 13.6 % (11.5-15.5); WBC 7.8 k/uL (3.8-10.6); WBC (Perox) 7.68
[2017-01-06 03:03] LABS: ALT 40 U/L (21-72); AST 20 U/L (17-59); Alkaline Phosphatase 165 U/L (38-126); Anion Gap 11 mmol/L; Blood Urea Nitrogen 11 mg/dL (9-20); Calcium 8.8 mg/dL (8.4-10.2); Carbon Dioxide 24 mmol/L (22-30); Chloride 105 mmol/L (98-107); Glucose 149 mg/dL (74-99); Non-African American GFR(MDRD) >60 (>60 ml/min/1.73 sqM); Potassium 3.5 mmol/L (3.5-5.1); Sodium 140 mmol/L (137-145); Total Bilirubin 1.3 mg/dL (0.2-1.3); Total Protein 6.4 g/dL (6.3-8.2)
[2017-01-06 03:07] LABS: Partial Thromboplastin Time 28.5 sec (22.0-30.0); Prothrombin Time 10.3 sec (9.0-12.0)
[2017-01-06 03:09] LABS: Creatine Kinase 165 U/L (55-170)
[2017-01-06 03:22] LABS: Creatine Kinase MB 0.9 ng/mL (0.0-2.4); Troponin I <0.012 ng/mL (0.000-0.034)
--- NOTE | 2017-01-06 03:26 | XR ---
EXAM: XR Chest, 2 Views CLINICAL HISTORY: STEVE, cough, congestion TECHNIQUE: Frontal and lateral views of the chest. COMPARISON: Chest x-ray 01/04/17 609 FINDINGS: Lungs: Slightly hypoventilatory lungs. Lungs clear. Pleural space: Unremarkable. No pneumothorax. Heart: Unremarkable. No cardiomegaly. Mediastinum: Unremarkable. Bones/joints: Unremarkable. IMPRESSION: Hypoventilatory lungs. No acute findings.
[2017-01-06] MEDS ORDERED: ACETAMINOPHEN TAB 325 MG TAB PO PRN (03:44)
[2017-01-06] MEDS ORDERED: NALOXONE 0.4 MG/ML 1 ML VIAL IV PRN (03:44)
[2017-01-06] MEDS ORDERED: HYDROcodone/APAP 5-325MG 1 EACH TAB PO PRN (03:44)
[2017-01-06] MEDS ORDERED: IBUPROFEN 400 MG TAB PO PRN (03:44)
[2017-01-06] MEDS ORDERED: methylPREDNISolone SOD SUCCI 125 MG/2 ML VIAL IV STA (03:45)
[2017-01-06] MEDS ORDERED: SODIUM CHLORIDE 0.9% 1,000 ML IV SCH (03:45)
[2017-01-06] MEDS ORDERED: LEVOFLOXACIN 500MG-D5W PMX 500 MG in DEXTROSE/WATER 1 100ML.BAG IVPB STA (03:46)
[2017-01-06] MEDS: LEVOTHYROXINE 100 MCG TAB PO SCH (05:58)
[2017-01-06] MEDS: IPRATROPIUM-ALBUTEROL 3 ML NEB INHALATION SCH ×5 (06:07→20:43)
[2017-01-06 07:33] LABS: Glucose,Whole Blood 232 mg/dL (75-99)
[2017-01-06] MEDS: FAMOTIDINE 20 MG TAB PO SCH ×2 (08:12→20:16)
[2017-01-06] MEDS: INSULIN LISPRO (humaLOG) 300 UNIT/3 ML VIAL SQ SCH ×4 (08:13→21:23)
[2017-01-06] MEDS ORDERED: ATENOLOL 50 MG TAB PO SCH (09:00)
[2017-01-06] MEDS ORDERED: LISINOPRIL 20 MG TAB PO SCH (09:00)
[2017-01-06] MEDS ORDERED: methylPREDNISolone SOD SUCCI 125 MG/2 ML VIAL IV SCH (12:00)
[2017-01-06 12:35] LABS: Hemoglobin A1C 6.4 % (4.2-6.1)
[2017-01-06 12:37] LABS: Glucose,Whole Blood 215 mg/dL (75-99)
[2017-01-06 17:28] LABS: Glucose,Whole Blood 219 mg/dL (75-99)
[2017-01-06] MEDS: TAMSULOSIN 0.4 MG CAP.ER.24H PO SCH (20:15)
[2017-01-06] MEDS: LISINOPRIL-HCTZ 20-12.5 MG 1 EACH TAB PO SCH (20:16)
[2017-01-06] MEDS: METOPROLOL TARTRATE 50 MG TAB PO SCH (20:16)
[2017-01-06 20:52] LABS: Glucose,Whole Blood 252 mg/dL (75-99)
[2017-01-06] MEDS: methylPREDNISolone SOD SUCCI 40 MG/ML 1 ML VIAL IV SCH (23:38)
[2017-01-07] MEDS: IPRATROPIUM-ALBUTEROL 3 ML NEB INHALATION SCH ×7 (00:25→23:04)
[2017-01-07] MEDS: LEVOTHYROXINE 100 MCG TAB PO SCH (05:56)
[2017-01-07 07:27] LABS: Glucose,Whole Blood 240 mg/dL (75-99)
[2017-01-07 07:57] LABS: Basophils % (A) 0 %; Eosinophils % (A) 0 %; HCT 42.3 % (39.0-53.0); HDW 2.93; HGB 14.8 gm/dL (13.0-17.5); Luc # (Auto) 0.09; Luc % (Auto) 1; Lymphocytes # (A) 0.7 k/uL (1.0-4.8); Lymphocytes % (A) 7 %; MCH 32.3 pg (25.0-35.0); MCV 92.3 fL (80.0-100.0); Mean Platelet Volume 7.2; Monocytes # (A) 0.5 k/uL (0-1.0); Monocytes % (A) 5 %; Neutrophils # (A) 8.4 k/uL (1.3-7.7); Neutrophils % (A) 86 %; RBC 4.58 m/uL (4.30-5.90); WBC 9.8 k/uL (3.8-10.6); WBC (Perox) 10.51
[2017-01-07 08:12] LABS: Anion Gap 12 mmol/L; Blood Urea Nitrogen 18 mg/dL (9-20); Calcium 9.4 mg/dL (8.4-10.2); Carbon Dioxide 22 mmol/L (22-30); Chloride 104 mmol/L (98-107); Glucose 248 mg/dL (74-99); Non-African American GFR(MDRD) >60 (>60 ml/min/1.73 sqM); Potassium 4.1 mmol/L (3.5-5.1); Sodium 138 mmol/L (137-145)
[2017-01-07] MEDS: LISINOPRIL-HCTZ 20-12.5 MG 1 EACH TAB PO SCH ×2 (08:14→21:06)
[2017-01-07] MEDS: FAMOTIDINE 20 MG TAB PO SCH ×2 (08:14→21:06)
[2017-01-07] MEDS: ENOXAPARIN 40 MG/0.4 ML SYRINGE SQ SCH (08:15)
[2017-01-07] MEDS: methylPREDNISolone SOD SUCCI 40 MG/ML 1 ML VIAL IV SCH (08:15)
[2017-01-07] MEDS: METOPROLOL TARTRATE 50 MG TAB PO SCH ×2 (08:15→21:06)
[2017-01-07] MEDS: INSULIN LISPRO (humaLOG) 300 UNIT/3 ML VIAL SQ SCH ×4 (08:15→21:11)
--- NOTE | 2017-01-07 08:30 | HP ---
DATE OF ADMISSION: 01/06/2017 PRESENTING COMPLAINT: Short of breath. HISTORY OF PRESENTING COMPLAINT: This is a 61-year-old patient of Dr. Araya. Chronic stable medical conditions include diabetes, hypertension, hyperlipidemia , hypothyroidism, chronic back pain, BPH. Patient three years ago at 4:00 in the morning started with short of breath, cough, running nose, fever, tired, rundown and went down to the ER and was put on amoxicillin, came home, felt more tired and rundown. Decreased appetite, was readmitted. There was a question about pneumonia. Patients appetite is rundown. REVIEW OF SYSTEMS: CONSTITUTIONAL: As above. HEENT: As above. RESPIRATORY: Some wheezing. CARDIOVASCULAR: None. GASTROINTESTINAL: None. GENITOURINARY: None. MUSCULOSKELETAL: None. DERMATOLOGICAL: None. HEMATOLOGICAL: None. LYMPHATIC: None. PSYCHIATRY: None. NEUROLOGICAL: None. PAST HISTORY: Diabetes, hypertension, hyperlipidemia, hypothyroid, chronic low back pain, BPH, colon cancer treated with resection only small portion, kidney stones. PAST SURGICAL HISTORY: Bowel resection, cholecystectomy. SOCIAL HISTORY: Patient lives with sister and niece. Smoked in the remote past. No alcohol. On examination, temperature 98.7, pulse 86, respirations 18, blood pressure 175/ 102, pulse ox 93% on room air. GENERAL APPEARANCE: Well built, BMI 42.1, sitting up, not in distress. EYES: Pupils equal, conjunctivae normal. HEENT: External appearance of nose and ears normal. Oral cavity normal. NECK: JVD not raised. Mass not palpable. RESPIRATORY: Effort normal. LUNGS: Slightly decreased breath sounds. CARDIOVASCULAR: Fist and second sounds are normal. No edema. ABDOMEN: Soft, nontender. Liver and spleen not palpable. LYMPHATIC: No lymph node in neck or axillae. PSYCHIATRIC: Alert, oriented x3. Mood and affect normal. NEUROLOGICAL: Pupils equal. Cranial nerves grossly intact. Power and sensation grossly intact. INVESTIGATIONS: White count 7.8, hemoglobin 14.3, potassium 3.5. BUN and creatinine normal. Accu-Cheks are noted including glucose 232, 215. Troponin less than 0.012. ProBNP is 245. Chest x-ray shows questionable slight infiltrate in the right base. ASSESSMENT: 1. Acute Pneumonitis probably viral in nature associated with rhinitis. 2. Some bronchospasm present on admission. 3. Diabetes mellitus type 2 on oral hypoglycemia. 4. Essential hypertension, uncontrolled. 5. Hyperlipidemia. 6. Hypothyroidism. 7. Benign prostatic hypertrophy. 8. Morbid obesity, BMI 42.1. 9. Hyperglycemia secondary to steroids. PLAN: Will hold off patients antibiotics, give short burst of steroids, bronchodilators. For blood pressure will stop the patients Tenormin and put the patient on Lopressor and also change the Lisinopril to 20/12.5 twice a day. Will see how patient fares and go from there. Care was discussed with the patient. Encouraged to be out of bed. MTDD
[2017-01-07] MEDS ORDERED: methylPREDNISolone SOD SUCCI 40 MG/ML 1 ML VIAL IV SCH (09:00)
[2017-01-07 12:29] LABS: Glucose,Whole Blood 233 mg/dL (75-99)
[2017-01-07] MEDS: amLODIPine 10 MG TAB PO SCH (15:30)
[2017-01-07 17:01] LABS: Glucose,Whole Blood 258 mg/dL (75-99)
--- NOTE | 2017-01-07 18:47 | P.DS ---
Providers Date of admission: 01/06/17 04:14 Expected date of discharge: 01/07/17 Attending physician: Bryan Gardner Primary care physician: Ant [facility] Course: FINAL DIAGNOSES: -Acute pneumonitis probably viral in nature associated rhinitis -Some bronchospasm present on admission -Diabetes mellitus type 2 on oral hypoglycemics. -Essential hypertension, uncontrolled. -Hyperlipidemia. -Hypothyroidism. -Benign prostatic hypertrophy. -Morbid obesity, BMI 42.1 -Hyperglycemia secondary to steroids. HOSPTIAL COURSE: This is 61-year-old male who presented with shortness of breath cough runny nose fever tired and rundown, was placed on amoxicillin and sent home. Patient continued to feel tired and rundown decreased appetite as well return to the emergency department was admitted with concerns for pneumonia. Home medications resumed, Antibiotics were held, patient received a short burst of steroids, bronchodilators. Patient's blood pressure medications were adjusted Tenormin was stopped and Lopressor and lisinopril were added. Patient was counseled regarding diet and exercise and the importance of losing weight. Patient's ambulatory in the hallways, tolerating his diet, states he feels much better than he did when he arrived to the emergency department and therefore is prepared for discharge home. PHYSICAL EXAM: CARDIOVASCULAR: First and second sounds noted no edema RESPIRATORY: Respiratory effort mildly labored, Lung sounds diminished bilaterally DISPOSITION: Discharge home to the care of his family Patient was seen and examined by nurse practitioner Carla Jorge in all elements of the case discussed with attending Dr. Gardner Patient Condition at Discharge: Stable Plan - Discharge Summary New Discharge Prescriptions: Continue Tamsulosin [Flomax] 0.4 mg PO HS Ranitidine HCl [Zantac] 150 mg PO BID Levothyroxine Sodium [Synthroid] 100 mcg PO DAILY metFORMIN HCL 500 mg PO BID Cholecalciferol (Vitamin D3) [Vitamin D3] 2,000 unit PO HS Atorvastatin [Lipitor] 10 mg PO MOWEFR glipiZIDE XL [Glucotrol XL] 5 mg PO DAILY Discontinued Amoxicillin 500 mg PO Q8H #30 capsule No Action Lisinopril [Lisinopril] 40 mg PO DAILY Atenolol [Atenolol] 50 mg PO DAILY Discharge Medication List Atenolol [Atenolol] 50 mg PO DAILY 08/08/15 [History] Cholecalciferol (Vitamin D3) [Vitamin D3] 2,000 unit PO HS 08/08/15 [History] Levothyroxine Sodium [Synthroid] 100 mcg PO DAILY 08/08/15 [History] Lisinopril [Lisinopril] 40 mg PO DAILY 08/08/15 [History] Ranitidine HCl [Zantac] 150 mg PO BID 08/08/15 [History] Tamsulosin [Flomax] 0.4 mg PO HS 08/08/15 [History] metFORMIN HCL 500 mg PO BID 08/08/15 [History] Atorvastatin [Lipitor] 10 mg PO MOWEFR 02/29/16 [History] glipiZIDE XL [Glucotrol XL] 5 mg PO DAILY 01/06/17 [History] Follow up Appointment(s)/Referral(s): Ant Araya DO [Primary Care Provider] - 1-2 days Activity/Diet/Wound Care/Special Instructions: heart healthy diet Discharge Disposition: HOME SELF-CARE
[2017-01-07 20:48] LABS: Glucose,Whole Blood 262 mg/dL (75-99)
[2017-01-07] MEDS: TAMSULOSIN 0.4 MG CAP.ER.24H PO SCH (21:07)
[2017-01-08] MEDS: IPRATROPIUM-ALBUTEROL 3 ML NEB INHALATION SCH ×4 (06:11→15:35)
[2017-01-08] MEDS: LEVOTHYROXINE 100 MCG TAB PO SCH (06:34)
[2017-01-08 07:05] LABS: Glucose,Whole Blood 174 mg/dL (75-99)
[2017-01-08] MEDS: ENOXAPARIN 40 MG/0.4 ML SYRINGE SQ SCH (08:00)
[2017-01-08] MEDS: LISINOPRIL-HCTZ 20-12.5 MG 1 EACH TAB PO SCH (08:00)
[2017-01-08] MEDS: INSULIN LISPRO (humaLOG) 300 UNIT/3 ML VIAL SQ SCH ×2 (08:00→12:35)
[2017-01-08] MEDS: FAMOTIDINE 20 MG TAB PO SCH (08:00)
[2017-01-08] MEDS: amLODIPine 10 MG TAB PO SCH (08:00)
[2017-01-08] MEDS: METOPROLOL TARTRATE 50 MG TAB PO SCH (08:04)
--- NOTE | 2017-01-08 08:49 | P.PN ---
Progress Note - Text DATE OF SERVICE: 01/07/2017 PRESENTING COMPLAINT: Cough, weak, tired. INTERVAL HISTORY: This is 61-year-old male who presented with complaints of feeling more tired and rundown after having previously been seen in the emergency department and put on antibiotics. 01/07/2017: Patient is up out of bed walking in the hallway, but is notably short of breath after his walk. Patient states he feels better than he did on day of arrival. Has not yet moved his bowels however is passing gas and tolerating his diet. Continues on breathing treatments and steroid treatment. Remains hypertensive even after adjustments made to his medications. REVIEW OF SYSTEMS: Done for constitutional ,cardiovascular, GI, pulmonary with relevant findings as above. CURRENT MEDICATIONS Lopressor 50 mg twice a day, Zestoretic 20/12.5, famotidine, DuoNeb's, PHYSICAL EXAM VITAL SIGNS: Temperature 96.1, pulse 69, respiratory rate 20, blood pressure 176/98, oxygen saturation 90% on room air. GENERAL APPEARANCE: Average build. Lying in bed, not in distress. EYES: Pupils equal. Conjunctiva normal. NECK: JVD not raised. Mass not palpable. RESPIRATORY: Respiratory effort normal. Lungs clear to auscultation. CARDIOVASCULAR: First and second sounds normal. No edema. ABDOMEN: Soft. Liver and spleen not palpable. No tenderness. No mass palpable. PSYCHIATRY: Alert and oriented x3. Mood and affect normal. NEUROLOGICAL: Cranial nerves grossly intact. No facial asymmetry. Power and sensation grossly intact INVESTIGATIONS: White blood cell count 9.8, hemoglobin 14.8 ASSESSMENT: -Acute pneumonitis probably viral in nature associated with rhinitis. -Some bronchospasm present on admission. -Diabetes mellitus type 2 on oral hypoglycemics. -Essential hypertension, uncontrolled. -Hyperlipidemia. -Hypothyroidism. -Benign prostatic hypertrophy. -Morbid obesity, BMI 42.1. -Hyperglycemia secondary to steroids. PLAN: We'll continue with bronchodilators. For blood pressure we will continue with Zestoretic 20/12.5 and Lopressor 50 mg twice a day. Patient was counseled on the importance of weight management/loss. Plan of care discussed with the patient at the bedside and he is in agreement. ETHICS INSTRUCTOR statement: Patient was seen and examined by nurse practitioner Carla Jorge and all elements of the case discussed with attending Dr. Gardner
[2017-01-08] MEDS ORDERED: ATORVASTATIN 10 MG TAB PO SCH (09:00)
[2017-01-08 09:48] LABS: Basophils % (A) 0 %; CH 32.9; Eosinophils # (A) 0.1 k/uL (0-0.7); Eosinophils % (A) 1 %; HCT 42.1 % (39.0-53.0); HDW 2.95; HGB 15.2 gm/dL (13.0-17.5); Luc # (Auto) 0.06; Luc % (Auto) 1; Lymphocytes # (A) 1.1 k/uL (1.0-4.8); Lymphocytes % (A) 16 %; MCH 33.1 pg (25.0-35.0); MCHC 36.1 g/dL (31.0-37.0); MCV 91.7 fL (80.0-100.0); Mean Platelet Volume 9.1; Monocytes # (A) 0.6 k/uL (0-1.0); Monocytes % (A) 9 %; Neutrophils # (A) 5.2 k/uL (1.3-7.7); Neutrophils % (A) 73 %; RBC 4.59 m/uL (4.30-5.90); RDW 13.1 % (11.5-15.5); WBC 7.1 k/uL (3.8-10.6); WBC (Perox) 7.14
[2017-01-08 10:05] LABS: Anion Gap 12 mmol/L; Blood Urea Nitrogen 25 mg/dL (9-20); Calcium 9.1 mg/dL (8.4-10.2); Carbon Dioxide 25 mmol/L (22-30); Chloride 99 mmol/L (98-107); Glucose 273 mg/dL (74-99); Non-African American GFR(MDRD) >60 (>60 ml/min/1.73 sqM); Potassium 3.4 mmol/L (3.5-5.1); Sodium 136 mmol/L (137-145)
[2017-01-08] MEDS ORDERED: LACTULOSE 20 GM/30 ML CUP PO ONE (10:13)
[2017-01-08] MEDS ORDERED: POTASSIUM CHLORIDE ER 20 MEQ TAB.ER PO STA (10:15)
[2017-01-08] MEDS ORDERED: POLYETHYLENE GLYCOL 3350 17 GM POWD.PACK PO SCH (10:15)
[2017-01-08 11:29] LABS: Glucose,Whole Blood 228 mg/dL (75-99)
[2017-01-08 11:32] VITALS: BMI 42.0
--- NOTE | 2017-01-08 11:34 | PN ---
DATE OF SERVICE: 01/07/2017 ATTENDING NOTE Patient seen and examined by me. I discussed the care with my nurse practitioner , Ms. Jorge. Patient admitted with acute pneumonitis, feeling better, cough, breathing is better. The patient did state that he has put on about 20 pounds in the last one year. ON EXAMINATION: Afebrile. LUNGS: Decreased breath sounds. INVESTIGATIONS: Accu-Cheks are noted. Blood pressure 186/84. ASSESSMENT: 1. Acute pneumonitis likely viral with rhinitis with clinical improvement. 2. Essential hypertension with urgency. 3. Diabetes mellitus type 2, uncontrolled from steroids. PLAN: Will discontinue patient's steroids. Will start the patient on amlodipine 10 mg a day. I discussed with the patient about weight loss. Will also have dietitian see the patient. Keep a close eye on ( ) and blood pressure. MTDD
--- NOTE | 2017-01-08 14:58 | P.DS ---
Providers Date of admission: 01/06/17 04:14 Expected date of discharge: 01/08/17 Attending physician: Bryan Gardner Primary care physician: [facility] Course: FINAL DIAGNOSES: -Acute pneumonitis probably viral in nature associated rhinitis -Some bronchospasm present on admission -Diabetes mellitus type 2 on oral hypoglycemics. -Essential hypertension, uncontrolled. -Hyperlipidemia. -Hypothyroidism. -Benign prostatic hypertrophy. -Morbid obesity, BMI 42.1 -Hyperglycemia secondary to steroids. HOSPTIAL COURSE: This is 61-year-old male who presented with shortness of breath cough runny nose fever tired and rundown, was placed on amoxicillin and sent home. Patient continued to feel tired and rundown decreased appetite as well return to the emergency department was admitted with concerns for pneumonia. Home medications resumed, Antibiotics were held, patient received a short burst of steroids, bronchodilators. Patient's blood pressure medications were adjusted Tenormin was stopped and Lopressor and lisinopril were added. Patient was counseled regarding diet and exercise and the importance of losing weight. Patient's ambulatory in the hallways, tolerating his diet, states he feels much better than he did when he arrived to the emergency department and therefore is prepared for discharge home. PHYSICAL EXAM: CARDIOVASCULAR: First and second sounds noted no edema RESPIRATORY: Respiratory effort mildly labored, Lung sounds diminished bilaterally DISPOSITION: Discharge home to the care of his family Patient was seen and examined by nurse practitioner Carla Jorge in all elements of the case discussed with attending Dr. Gardner Patient Condition at Discharge: Stable Plan - Discharge Summary New Discharge Prescriptions: New amLODIPine [Norvasc] 10 mg PO DAILY #30 tab Lisinopril-Hctz 20-12.5 mg [Zestoretic 20-12.5] 1 each PO BID #60 tab Albuterol Inhaler [Ventolin Hfa Inhaler] 1 - 2 puff INHALATION Q6HR PRN #1 inhaler PRN Reason: Bronchodilation Continue Tamsulosin [Flomax] 0.4 mg PO HS Ranitidine HCl [Zantac] 150 mg PO BID Levothyroxine Sodium [Synthroid] 100 mcg PO DAILY metFORMIN HCL 500 mg PO BID Cholecalciferol (Vitamin D3) [Vitamin D3] 2,000 unit PO HS Atorvastatin [Lipitor] 10 mg PO MOWEFR glipiZIDE XL [Glucotrol XL] 5 mg PO DAILY Discontinued Lisinopril [Lisinopril] 40 mg PO DAILY Atenolol [Atenolol] 50 mg PO DAILY Amoxicillin 500 mg PO Q8H #30 capsule Discharge Medication List Cholecalciferol (Vitamin D3) [Vitamin D3] 2,000 unit PO HS 08/08/15 [History] Levothyroxine Sodium [Synthroid] 100 mcg PO DAILY 08/08/15 [History] Ranitidine HCl [Zantac] 150 mg PO BID 08/08/15 [History] Tamsulosin [Flomax] 0.4 mg PO HS 08/08/15 [History] metFORMIN HCL 500 mg PO BID 08/08/15 [History] Atorvastatin [Lipitor] 10 mg PO MOWEFR 02/29/16 [History] glipiZIDE XL [Glucotrol XL] 5 mg PO DAILY 01/06/17 [History] Albuterol Inhaler [Ventolin Hfa Inhaler] 1 - 2 puff INHALATION Q6HR PRN #1 inhaler 01/08/17 [Rx] Lisinopril-Hctz 20-12.5 mg [Zestoretic 20-12.5] 1 each PO BID #60 tab 01/08/17 [ Rx] amLODIPine [Norvasc] 10 mg PO DAILY #30 tab 01/08/17 [Rx] Follow up Appointment(s)/Referral(s): Ant Araya DO [Primary Care Provider] - 1-2 days [facility], [NON-STAFF] - Activity/Diet/Wound Care/Special Instructions: heart healthy diet Discharge Disposition: HOME SELF-CARE
[2017-01-08 15:15] VITALS: BP 141/91; RESP 18; TEMP 97.6
[2017-01-08 15:48] VITALS: PULSE 80
--- NOTE | 2017-01-11 15:26 | DS ---
ATTENDING NOTE: This patient seen and examined by me today. FINAL DIAGNOSES: Acute pneumonitis, probably viral in nature. This is a patient admitted with pneumonitis, doing much better. The patient is counseled about weight loss. On examination, lungs very mild wheezing. PSYCH: AO times three. The patient is going to see the centrifugal supervisor. May use Ventolin. The patients blood pressure medications are adjusted. Blood pressure is doing much better. MTDD
== END 2017-01-08 16:02 | disposition home health service (06) | DRG 194 ==
LOC: EC 01:20 → 4MS4W 04:14
PROVIDERS: ADMIT Hospitalist; ATTEND Hospitalist
DX: J12.9 Viral pneumonia, unspecified (principal); E11.65 Type 2 diabetes mellitus with hyperglycemia; I10 Essential (primary) hypertension; E03.9 Hypothyroidism, unspecified; E66.01 Morbid (severe) obesity due to excess calories; E78.5 Hyperlipidemia, unspecified; G89.29 Other chronic pain; J31.0 Chronic rhinitis; N40.0 Benign prostatic hyperplasia without lower urinary tract symptoms; R09.02 Hypoxemia; J98.01 Acute bronchospasm; T38.0X5A Adverse effect of glucocorticoids and synthetic analogues, initial encounter; M54.9 Dorsalgia, unspecified; Z68.41 Body mass index [BMI] 40.0-44.9, adult; Z87.891 Personal history of nicotine dependence; Z79.899 Other long term (current) drug therapy; Z85.038 Personal history of other malignant neoplasm of large intestine; Z79.84 Long term (current) use of oral hypoglycemic drugs; Z88.2 Allergy status to sulfonamides
CPT/HCPCS: 36415; 71020; 80048; 80053; 82550; 82553; 83036; 83605; 83880; 84484; 85025; 85379; 85610; 85730; 87040; 93005; 94640; 96365; 96375; 99285

== ENCOUNTER 2017-10-11 02:33 | Emergency (ER) | payer MEDICARE, OTHER ==
--- NOTE | 2017-10-11 02:49 | ED ---
General Adult HPI - General Chief complaint: Upper Respiratory Infection Stated complaint: throat pain Time Seen by Provider: 10/11/17 02:41 Source: patient, RN notes reviewed Mode of arrival: ambulatory Limitations: no limitations - History of Present Illness Initial comments: Patient 62-year-old male presented to the emergency room today with a chief complaint of cough congestion that started approximately 3 hours ago. He states that his knees began not feeling well earlier last night she went to bed. He states shortly thereafter he began having a cough himself. He states he has had sputum production it's been green in color. She saw small amount of blood mixed in with sputum. Patient denies any other complaints or symptoms. Patient denies any recent fever, chills, shortness of breath, chest pain, back pain, abdominal pain, nausea or vomiting, headaches or visual changes, or any other complaints. - Related Data Home Medications Medication Instructions Recorded Confirmed Cholecalciferol (Vitamin D3) 2,000 unit PO HS 08/08/15 01/06/17 [Vitamin D3] Levothyroxine Sodium [Synthroid] 100 mcg PO DAILY 08/08/15 01/06/17 Ranitidine HCl [Zantac] 150 mg PO BID 08/08/15 01/06/17 Tamsulosin [Flomax] 0.4 mg PO HS 08/08/15 01/06/17 metFORMIN HCL 500 mg PO BID 08/08/15 01/06/17 Atorvastatin [Lipitor] 10 mg PO MOWEFR 02/29/16 01/06/17 glipiZIDE XL [Glucotrol XL] 5 mg PO DAILY 01/06/17 01/06/17 Previous Rx's Medication Instructions Recorded Albuterol Inhaler [Ventolin Hfa 1 - 2 puff INHALATION Q6HR PRN #1 01/08/17 Inhaler] inhaler Lisinopril-Hctz 20-12.5 mg 1 each PO BID #60 tab 01/08/17 [Zestoretic 20-12.5] amLODIPine [Norvasc] 10 mg PO DAILY #30 tab 01/08/17 guaiFENesin 400 mg PO Q4-6H #30 tablet 10/11/17 Allergies Allergy/AdvReac Type Severity Reaction Status Date / Time Sulfa (Sulfonamide AdvReac Nausea & Verified 10/11/17 02:39 Antibiotics) Vomiting Review of Systems ROS Statement: Those systems with pertinent positive or pertinent negative responses have been documented in the HPI. ROS Other: All systems not noted in ROS Statement are negative. Past Medical History Past Medical History: Cancer, Diabetes Mellitus, Hyperlipidemia, Hypertension, Pneumonia, Thyroid Disorder Additional Past Medical History / Comment(s): chronic back pain, colon CA, enlarged prostate History of Any Multi-Drug Resistant Organisms: None Reported Past Surgical History: Bowel Resection, Cholecystectomy Past Psychological History: No Psychological Hx Reported Smoking Status: Former smoker Past Alcohol Use History: None Reported Past Drug Use History: None Reported - Past Family History Mother Family Medical History: Cancer, Diabetes Mellitus Sister(s) Family Medical History: Diabetes Mellitus General Exam Limitations: no limitations General appearance: alert, in no apparent distress Head exam: Present: atraumatic, normocephalic, normal inspection Eye exam: Present: normal appearance, PERRL, EOMI. Absent: scleral icterus, conjunctival injection ENT exam: Present: normal exam, normal oropharynx, mucous membranes moist. Absent: mucous membranes dry Neck exam: Present: normal inspection, full ROM. Absent: tenderness, meningismus Respiratory exam: Present: normal lung sounds bilaterally. Absent: respiratory distress, wheezes, rales, rhonchi, stridor, accessory muscle use, decreased breath sounds Cardiovascular Exam: Present: regular rate, normal rhythm Extremities exam: Present: normal inspection, full ROM, pedal edema, joint swelling, calf tenderness. Absent: tenderness Neurological exam: Present: alert, oriented X3, CN II-XII intact Psychiatric exam: Present: normal affect, normal mood Skin exam: Present: warm, dry, intact, normal color. Absent: rash Course Vital Signs 10/11/17 02:35 Temperature 97.6 F Pulse Rate 103 H Respiratory 19 Rate Blood Pressure 183/100 O2 Sat by Pulse 97 Oximetry Medical Decision Making - Medical Decision Making 62-year-old male presenting for cough congestion that started approximately 3 hours ago. Denies any shortness breath. Denies any pain. States that friend that he saw her recently was diagnosed with bronchitis. States that his niece at home started having similar symptoms tonight as well. Patient's chest x-ray reviewed as negative for any sign of pneumonia. Patient states symptoms started approximately 3 hours ago and has some sputum production. At this time is felt that his illness is most likely viral. Hold antibiotics at this time. Advised patient to follow-up family doctor over the next 2-5 days. We will start patient with cough medication for his symptoms. Advised to return fever or increase worsen his symptoms. Patient states she is in agreement. Disposition Clinical Impression: Acute bronchitis Disposition: HOME SELF-CARE Condition: Good Instructions: Acute Bronchitis (ED) Additional Instructions: Please use medication as discussed. Please follow-up with family doctor in the next 2 days of symptoms have not improved. Please return to emergency room if the symptoms increase or worsen or for any other concerns. Prescriptions: guaiFENesin 400 mg PO Q4-6H #30 tablet Is patient prescribed a controlled substance at d/c from ED?: No Referrals: Ant Araya DO [Primary Care Provider] - 1-2 days Time of Disposition: 03:18
--- NOTE | 2017-10-11 03:08 | XR ---
EXAMINATION TYPE: XR chest 2V DATE OF EXAM: 10/11/2017 COMPARISON: 01/06/2017 HISTORY: Cough TECHNIQUE: Frontal and lateral views of the chest are obtained. FINDINGS: There is no heart failure nor confluent pneumonic infiltrate. Costophrenic angles are hallie r. Bony thorax is intact. IMPRESSION: Normal chest. No change.
[2017-10-11 03:30] VITALS: BP 172/100; PULSE 89; RESP 16; TEMP 98.6
== END 2017-10-11 03:30 | disposition home or self-care (01) ==
LOC: EC 02:33
DX: J20.9 Acute bronchitis, unspecified (principal); E78.5 Hyperlipidemia, unspecified; I10 Essential (primary) hypertension; E11.9 Type 2 diabetes mellitus without complications; E07.9 Disorder of thyroid, unspecified; N40.0 Benign prostatic hyperplasia without lower urinary tract symptoms; Z87.891 Personal history of nicotine dependence; Z79.84 Long term (current) use of oral hypoglycemic drugs; Z79.899 Other long term (current) drug therapy; Z88.2 Allergy status to sulfonamides; Z85.038 Personal history of other malignant neoplasm of large intestine; Z90.49 Acquired absence of other specified parts of digestive tract
CPT/HCPCS: 71046; 99283

== ENCOUNTER 2017-11-09 14:50 | Emergency (ER) | payer MEDICARE, OTHER ==
--- NOTE | 2017-11-09 15:50 | ED ---
ENT HPI - General Chief complaint: ENT Stated complaint: Sore throat/ear pain Time Seen by Provider: 11/09/17 15:06 Source: patient, RN notes reviewed Mode of arrival: ambulatory Limitations: no limitations - History of Present Illness Initial comments: 62-year-old male presents emergency Department chief complaint of nasal congestion, left ear plugged, sore throat or so. Patient states started last couple days. He does have seasonal ALLERGIES but not taking any current medications. Patient reports no fever, chills, difficulty swallowing or difficult breathing. Denies any chest pain, shortness breath, productive cough. Patient states that he has been the vehicle in the past for his left ear and states that he is losing some of his hearing. He states that this feels more like fluid in his left ear. Patient states that he has not tried anything for sore throat or congestion. - Related Data Home Medications Medication Instructions Recorded Confirmed Cholecalciferol (Vitamin D3) 2,000 unit PO HS 08/08/15 01/06/17 [Vitamin D3] Levothyroxine Sodium [Synthroid] 100 mcg PO DAILY 08/08/15 01/06/17 Ranitidine HCl [Zantac] 150 mg PO BID 08/08/15 01/06/17 Tamsulosin [Flomax] 0.4 mg PO HS 08/08/15 01/06/17 metFORMIN HCL 500 mg PO BID 08/08/15 01/06/17 Atorvastatin [Lipitor] 10 mg PO MOWEFR 02/29/16 01/06/17 glipiZIDE XL [Glucotrol XL] 5 mg PO DAILY 01/06/17 01/06/17 Previous Rx's Medication Instructions Recorded Albuterol Inhaler [Ventolin Hfa 1 - 2 puff INHALATION Q6HR PRN #1 01/08/17 Inhaler] inhaler Lisinopril-Hctz 20-12.5 mg 1 each PO BID #60 tab 01/08/17 [Zestoretic 20-12.5] amLODIPine [Norvasc] 10 mg PO DAILY #30 tab 01/08/17 guaiFENesin 400 mg PO Q4-6H #30 tablet 10/11/17 Fluticasone Nasal [place] [Flonase 2 spr EA NOSTRIL DAILY #1 bottle 11/09/17 Nasal [place]] Loratadine [Claritin] 10 mg PO DAILY #30 tab 11/09/17 Allergies Allergy/AdvReac Type Severity Reaction Status Date / Time Sulfa (Sulfonamide AdvReac Nausea & Verified 11/09/17 15:02 Antibiotics) Vomiting Review of Systems ROS Statement: Those systems with pertinent positive or pertinent negative responses have been documented in the HPI. ROS Other: All systems not noted in ROS Statement are negative. Past Medical History Past Medical History: Cancer, Diabetes Mellitus, Hyperlipidemia, Hypertension, Thyroid Disorder Additional Past Medical History / Comment(s): chronic back pain, colon CA, enlarged prostate History of Any Multi-Drug Resistant Organisms: None Reported Past Surgical History: Bowel Resection, Cholecystectomy Past Psychological History: No Psychological Hx Reported Smoking Status: Former smoker Past Alcohol Use History: None Reported Past Drug Use History: None Reported - Past Family History Mother Family Medical History: Cancer, Diabetes Mellitus Sister(s) Family Medical History: Diabetes Mellitus General Exam Limitations: no limitations General appearance: alert, in no apparent distress Head exam: Present: atraumatic, normocephalic, normal inspection Eye exam: Present: normal appearance, PERRL, EOMI. Absent: scleral icterus, conjunctival injection, periorbital swelling ENT exam: Present: mucous membranes moist, TM's normal bilaterally. Absent: normal oropharynx (Postnasal drainage, no obvious sores or lesions noted), normal external ear exam (Mild cerumen left) Neck exam: Present: normal inspection, full ROM. Absent: tenderness, meningismus, lymphadenopathy Respiratory exam: Present: normal lung sounds bilaterally. Absent: respiratory distress, wheezes, rales, rhonchi, stridor Cardiovascular Exam: Present: regular rate, normal rhythm, normal heart sounds. Absent: systolic murmur, diastolic murmur, rubs, gallop, clicks Skin exam: Present: warm, dry, intact, normal color. Absent: rash Course Vital Signs 11/09/17 14:59 Temperature 98.1 F Pulse Rate 105 H Respiratory 18 Rate Blood Pressure 151/104 O2 Sat by Pulse 99 Oximetry Medical Decision Making - Medical Decision Making 62-year-old male presents emergency from chief complaint of nasal congestion, sore throat. Patient had does have notable postnasal drainage most likely causing a sore throat exam no difficulty swallowing difficulty breathing. There is no lymphadenopathy or erythema of the posterior pharynx consistent with strep pharyngitis. Patient will be given Flonase, Claritin for seasonal ALLERGY issues. Patient denies increase fluids never recheck. Patient felt a canker sore there is no obvious lesions or sores I did advise him to have it rechecked if he does develop. Disposition Clinical Impression: Post-nasal drainage, Seasonal allergies Disposition: HOME SELF-CARE Condition: Stable Instructions: Allergic Rhinitis (ED) Additional Instructions: Please return to the Emergency Department if symptoms worsen or any other concerns. Prescriptions: Fluticasone Nasal [place] [Flonase Nasal [place]] 2 spr EA NOSTRIL DAILY #1 bottle Loratadine [Claritin] 10 mg PO DAILY #30 tab Is patient prescribed a controlled substance at d/c from ED?: No Referrals: Ant Araya DO [Primary Care Provider] - 1-2 days
[2017-11-09 16:08] VITALS: BP 163/93; PULSE 99; RESP 16; TEMP 98.7
== END 2017-11-09 16:12 | disposition home or self-care (01) ==
LOC: EC 14:50
DX: J30.2 Other seasonal allergic rhinitis (principal); E11.9 Type 2 diabetes mellitus without complications; E78.5 Hyperlipidemia, unspecified; E07.9 Disorder of thyroid, unspecified; N40.0 Benign prostatic hyperplasia without lower urinary tract symptoms; Z85.038 Personal history of other malignant neoplasm of large intestine; Z87.891 Personal history of nicotine dependence; Z79.84 Long term (current) use of oral hypoglycemic drugs; Z79.899 Other long term (current) drug therapy; Z88.2 Allergy status to sulfonamides
CPT/HCPCS: 99282

== ENCOUNTER 2018-04-30 00:47 | Emergency (ER) | payer MEDICARE, OTHER ==
[2018-04-30 00:58] VITALS: RESP 18
[2018-04-30] MEDS ORDERED: SIMETHICONE 80 MG CHEWABLE PO STA (02:26)
[2018-04-30 02:45] VITALS: BP 166/106; PULSE 75; TEMP 98
[2018-04-30] MEDS ORDERED: guaiFENesin-DM 600/30MG 1 EACH TAB.ER.12H PO STA (02:50)
--- NOTE | 2018-04-30 02:50 | ED ---
URI HPI - General Chief Complaint: Upper Respiratory Infection Stated Complaint: cough, URI Time Seen by Provider: 04/30/18 02:07 Source: patient Mode of arrival: ambulatory - History of Present Illness Initial Comments: 62-year-old male patient presents to the emergency department today for complaints of nasal congestion and intermittent abdominal cramping. Patient states that he started to get nasal congestion, nasal drainage, and scratchy throat over the last 2 days. States he has been taking NyQuil and ibuprofen but it has not helped with his symptoms. States that he does have a lot of facial pressure with this. He states that after eating a hamburger and deep- fried sammarinese fries last night he started to have a lot of gas and abdominal cramping intermittently. Patient states he is currently pain-free. States he did take Tums which did improve his symptoms. He denies any fever, chills, significant cough, ear pain, or sore throat. States that his sister was sick with similar upper respiratory symptoms over the last week. He denies any shortness of breath. Patient denies any recent rash, nausea, vomiting, diarrhea , constipation, back pain, numbness, tingling, dizziness, weakness, hematuria, dysuria, urinary urgency, urinary frequency, headache, visual changes, or any other complaints. - Related Data Home Medications Medication Instructions Recorded Confirmed Cholecalciferol (Vitamin D3) 2,000 unit PO HS 08/08/15 11/09/17 [Vitamin D3] Levothyroxine Sodium [Synthroid] 100 mcg PO DAILY 08/08/15 11/09/17 Ranitidine HCl [Zantac] 150 mg PO BID 08/08/15 11/09/17 Tamsulosin [Flomax] 0.4 mg PO HS 08/08/15 11/09/17 metFORMIN HCL 1,000 mg PO BID 08/08/15 11/09/17 Atorvastatin [Lipitor] 10 mg PO MOWEFR 02/29/16 11/09/17 glipiZIDE XL [Glucotrol XL] 5 mg PO DAILY 01/06/17 11/09/17 Metoprolol Succinate (ER) [Toprol 25 mg PO DAILY 11/09/17 11/09/17 Xl] Previous Rx's Medication Instructions Recorded Fluticasone Nasal [place] [Flonase 2 spr EA NOSTRIL DAILY #1 bottle 11/09/17 Nasal [place]] Loratadine [Claritin] 10 mg PO DAILY #30 tab 11/09/17 guaiFENesin-DM 600/30MG [Mucinex 1 each PO Q12HR #10 tab.er.12h 04/30/18 Dm] Allergies Allergy/AdvReac Type Severity Reaction Status Date / Time Sulfa (Sulfonamide AdvReac Nausea & Verified 11/09/17 15:53 Antibiotics) Vomiting Review of Systems ROS Statement: Those systems with pertinent positive or pertinent negative responses have been documented in the HPI. ROS Other: All systems not noted in ROS Statement are negative. Past Medical History Past Medical History: Cancer, Diabetes Mellitus, Hyperlipidemia, Hypertension, Thyroid Disorder Additional Past Medical History / Comment(s): chronic back pain, colon CA, enlarged prostate History of Any Multi-Drug Resistant Organisms: None Reported Past Surgical History: Bowel Resection, Cholecystectomy Past Psychological History: No Psychological Hx Reported Smoking Status: Former smoker Past Alcohol Use History: None Reported Past Drug Use History: None Reported - Past Family History Mother Family Medical History: Cancer, Diabetes Mellitus Sister(s) Family Medical History: Diabetes Mellitus General Exam General appearance: alert, in no apparent distress, other (This is a well- developed, well-nourished adult male patient in no acute distress. Vital signs upon presentation are temperature 98.2F, pulse 96, respirations 18, blood pressure 202/125, pulse ox 95% on room air.) Eye exam: Present: normal appearance, PERRL, EOMI. Absent: scleral icterus, conjunctival injection, periorbital swelling ENT exam: Present: normal exam, normal oropharynx, mucous membranes moist, other (frontal and maxillary sinus tenderness) Respiratory exam: Present: normal lung sounds bilaterally. Absent: respiratory distress, wheezes, rales, rhonchi, stridor Cardiovascular Exam: Present: regular rate, normal rhythm, normal heart sounds. Absent: systolic murmur, diastolic murmur, rubs, gallop, clicks GI/Abdominal exam: Present: soft, normal bowel sounds. Absent: distended, tenderness, guarding, rebound, rigid Neurological exam: Present: alert, oriented X3, CN II-XII intact Psychiatric exam: Present: normal affect, normal mood Skin exam: Present: warm, dry, intact, normal color. Absent: rash Course Vital Signs 04/30/18 04/30/18 00:54 02:43 Temperature 98.2 F 98.0 F Pulse Rate 96 75 Respiratory 18 18 Rate Blood Pressure 202/125 166/106 O2 Sat by Pulse 95 98 Oximetry Medical Decision Making - Medical Decision Making 62-year-old male patient percents to the emergency department today for complaints of sinus pressure, sinus drainage, scratchy throat. He is also reporting mild intermittent abdominal cramping he believes to be related to gas. Physical examination did reveal some frontal maxillary sinus tenderness. Abdomen was soft and nontender. Denies any abdominal pain at this time. He is afebrile. Patient does have elevated blood pressure but states that this is, and he did take his medications. This did improve somewhat prior to discharge. We did discuss safe use of decongestants. Did prescribe guaifenesin with dextromethorphan which he should tolerate better. He was also given Mylicon dose here in the emergency department. Symptoms are consistent with viral upper respiratory infection. He is instructed to follow-up with his primary care physician for recheck as soon as possible. Return parameters discussed in detail. He verbalizes understanding and agrees with this plan Disposition Clinical Impression: Viral upper respiratory infection Disposition: HOME SELF-CARE Condition: Good Instructions: Upper Respiratory Infection (ED) Additional Instructions: Flush sinuses with nasal saline. Use nasal spray as directed. Taken over the counter nasal decongestants containing dextromethorphan (you can ask the pharmacist) as these are better for your blood pressure. Take ibuprofen for pain control. Follow up with your primary care physician for recheck in 1-2 days. Return immediately for any new, worsening, or concerning symptoms. Prescriptions: guaiFENesin-DM 600/30MG [Mucinex Dm] 1 each PO Q12HR #10 tab.er.12h Is patient prescribed a controlled substance at d/c from ED?: No Referrals: Ant Araya DO [Primary Care Provider] - 1-2 days Time of Disposition: 02:49
== END 2018-04-30 03:25 | disposition home or self-care (01) ==
LOC: EC 00:47
DX: J06.9 Acute upper respiratory infection, unspecified (principal); E11.9 Type 2 diabetes mellitus without complications; E78.5 Hyperlipidemia, unspecified; I10 Essential (primary) hypertension; E07.9 Disorder of thyroid, unspecified; Z79.84 Long term (current) use of oral hypoglycemic drugs; Z79.899 Other long term (current) drug therapy; Z88.2 Allergy status to sulfonamides; Z87.891 Personal history of nicotine dependence; Z85.038 Personal history of other malignant neoplasm of large intestine; Z90.49 Acquired absence of other specified parts of digestive tract
CPT/HCPCS: 99283

== ENCOUNTER 2018-05-18 07:42 | Emergency (ER) | payer MEDICARE, OTHER ==
--- NOTE | 2018-05-18 09:04 | ED ---
General Adult HPI - General Chief complaint: Back Pain/Injury Stated complaint: Flank /hand pain Time Seen by Provider: 05/18/18 08:08 Source: patient, RN notes reviewed Mode of arrival: ambulatory Limitations: no limitations - History of Present Illness Initial comments: Patient's a 62-year-old male presenting to the emergency room today with a chief complaint of right forearm pain and right-sided back pain. Patient states that he noticed the pain into the forearm yesterday. He states starts at the right wrist area that shoots up to approximately the elbow. He states it 's reproduced with certain movements. He states he believes it's because he was using iPad that he holds in the right hand. Patient also admits that he was lifting a lot of bags yesterday. Patient states pain is better today than yesterday still reproduced by movement. Patient admits that he woke up this morning 6 AM had some right-sided back pain. He states this is also improved. He did not take any medications this morning. He states that the pain is worse with movements. He denies any known injury or trauma to these areas. He denies any other complaints or symptoms at this time. Patient denies any recent fever, chills, shortness of breath, chest pain, abdominal pain, nausea or vomiting, numbness or tingling, headaches or visual changes, or any other complaints. - Related Data Home Medications Medication Instructions Recorded Confirmed Cholecalciferol (Vitamin D3) 2,000 unit PO HS 08/08/15 05/18/18 [Vitamin D3] Levothyroxine Sodium [Synthroid] 100 mcg PO DAILY 08/08/15 05/18/18 Ranitidine HCl [Zantac] 150 mg PO BID 08/08/15 05/18/18 Tamsulosin [Flomax] 0.4 mg PO HS 08/08/15 05/18/18 metFORMIN HCL 1,000 mg PO BID 08/08/15 05/18/18 Atorvastatin [Lipitor] 10 mg PO MOWEFR 02/29/16 05/18/18 glipiZIDE XL [Glucotrol XL] 5 mg PO DAILY 01/06/17 05/18/18 Metoprolol Succinate (ER) [Toprol 25 mg PO DAILY 11/09/17 05/18/18 Xl] Previous Rx's Medication Instructions Recorded Fluticasone Nasal [place] [Flonase 2 spr EA NOSTRIL DAILY #1 bottle 11/09/17 Nasal [place]] Loratadine [Claritin] 10 mg PO DAILY #30 tab 11/09/17 guaiFENesin-DM 600/30MG [Mucinex 1 each PO Q12HR #10 tab.er.12h 04/30/18 Dm] Ibuprofen [Motrin] 600 mg PO Q6HR PRN #30 day 05/18/18 Allergies Allergy/AdvReac Type Severity Reaction Status Date / Time Sulfa (Sulfonamide AdvReac Nausea & Verified 05/18/18 07:49 Antibiotics) Vomiting Review of Systems ROS Statement: Those systems with pertinent positive or pertinent negative responses have been documented in the HPI. ROS Other: All systems not noted in ROS Statement are negative. Past Medical History Past Medical History: Cancer, Diabetes Mellitus, Hyperlipidemia, Hypertension, Thyroid Disorder Additional Past Medical History / Comment(s): chronic back pain, colon CA, enlarged prostate History of Any Multi-Drug Resistant Organisms: None Reported Past Surgical History: Bowel Resection, Cholecystectomy Past Psychological History: No Psychological Hx Reported Smoking Status: Former smoker Past Alcohol Use History: None Reported Past Drug Use History: None Reported - Past Family History Mother Family Medical History: Cancer, Diabetes Mellitus Sister(s) Family Medical History: Diabetes Mellitus General Exam - General Exam Comments Initial Comments: General: The patient is awake and alert, in no distress, and does not appear acutely ill. Eye: Pupils are equal, round and reactive to light, extra-ocular movements are intact. No nystagmus. There is normal conjunctiva bilaterally. No signs of icterus. Ears, nose, mouth and throat: There are moist mucous membranes and no oral lesions. Neck: The neck is supple, there is no tenderness or JVD. Cardiovascular: There is a regular rate and rhythm. No murmur, rub or gallop is appreciated. Respiratory: Lungs are clear to auscultation, respirations are non-labored, breath sounds are equal. No wheezes, stridor, rales, or rhonchi. Musculoskeletal: Shows good range of motion. He does have tenderness over the right wrist and into the right forearm. Pain is reproduced with flexion at the right wrist. Patient has normal appearance of thoracic lumbar spine. Does have tenderness paravertebrally on the right side lumbar spine at L1-L2. This reproduces his back pain. Strength 5/5. Sensation intact in all areas. Radial and pedal pulses 2+ bilaterally. Neurological: A&O x 3. CN II-XII intact, There are no obvious motor or sensory deficits. Coordination appears grossly intact. Speech is normal. Skin: Skin is warm and dry and no rashes or lesions are noted. Psychiatric: Cooperative, appropriate mood & affect, normal judgment. Limitations: no limitations Course Vital Signs 05/18/18 07:50 Temperature 97.4 F L Pulse Rate 88 Respiratory 18 Rate Blood Pressure 181/99 O2 Sat by Pulse 97 Oximetry EKG Findings - EKG Comments: EKG Findings:: EKG performed at 843: Shows normal sinus rhythm at 68 bpm. OK interval 152. QRS 94. QT/QTc 408/433. No acute ST changes. Compared to previous EKG on 01/06/2017 showing no change Medical Decision Making - Medical Decision Making Case discussed in detail with attending physician Dr. Gallego. Patient pain to the right wrist is reproduced over the volar aspect and worse with Phalen's test. Does experience some tingling down to the fingers of the second and third digits. Patient's pain is reproduced with flexion at the wrist. Patient also states that he had some back pain but admits that he has to crawl out of bed as his best wall and sleeps on the opposite side. Patient unsure if this is related to his back but states pain is worse with movements and has started to feel better and has not taken any medication. Patient did have an EKG obtained which shows no change from previous. Patient denies any other complaints. He' ll be treated with anti-inflammatories advised follow-up with his family doctor this coming week. He is advised return to emergency room if any symptoms increase or worsen or for any other concerns. Disposition Clinical Impression: Wrist pain, Back pain Disposition: HOME SELF-CARE Condition: Good Instructions: Acute Low Back Pain (ED) Additional Instructions: Please use medication as discussed. Please follow-up with family doctor in the next 2 day. Please return to emergency room if the symptoms increase or worsen or for any other concerns. Prescriptions: Ibuprofen [Motrin] 600 mg PO Q6HR PRN #30 day PRN Reason: Pain Is patient prescribed a controlled substance at d/c from ED?: No Referrals: Ant Araya DO [Primary Care Provider] - 1-2 days Time of Disposition: 09:17
[2018-05-18 09:25] VITALS: BP 142/84; PULSE 86; RESP 20; TEMP 98.2
== END 2018-05-18 09:25 | disposition home or self-care (01) ==
LOC: EC 07:42
DX: M25.531 Pain in right wrist (principal); M54.9 Dorsalgia, unspecified; R10.9 Unspecified abdominal pain; E11.9 Type 2 diabetes mellitus without complications; E78.5 Hyperlipidemia, unspecified; I10 Essential (primary) hypertension; E07.9 Disorder of thyroid, unspecified; Z87.438 Personal history of other diseases of male genital organs; Z85.038 Personal history of other malignant neoplasm of large intestine; Z90.49 Acquired absence of other specified parts of digestive tract; Z87.891 Personal history of nicotine dependence; Z79.84 Long term (current) use of oral hypoglycemic drugs; Z79.899 Other long term (current) drug therapy; Z88.2 Allergy status to sulfonamides; X50.0XXA Overexertion from strenuous movement or load, initial encounter
CPT/HCPCS: 93005; 99283

== ENCOUNTER 2018-07-13 05:50 | Emergency (ER) | payer MEDICARE, OTHER ==
[2018-07-13] MEDS ORDERED: HYDROcodone/APAP 5-325MG 1 EACH TAB PO STA (07:17)
[2018-07-13] MEDS ORDERED: LIDOCAINE 5% PATCH TOPICAL STA (07:17)
--- NOTE | 2018-07-13 07:21 | ED ---
General Adult HPI - General Chief complaint: Urogenital Stated complaint: back pain Time Seen by Provider: 07/13/18 07:08 Source: patient Mode of arrival: ambulatory Limitations: no limitations - Related Data Home Medications Medication Instructions Recorded Confirmed Cholecalciferol (Vitamin D3) 2,000 unit PO HS 08/08/15 05/18/18 [Vitamin D3] Levothyroxine Sodium [Synthroid] 100 mcg PO DAILY 08/08/15 05/18/18 Ranitidine HCl [Zantac] 150 mg PO BID 08/08/15 05/18/18 Tamsulosin [Flomax] 0.4 mg PO HS 08/08/15 05/18/18 metFORMIN HCL 1,000 mg PO BID 08/08/15 05/18/18 Atorvastatin [Lipitor] 10 mg PO MOWEFR 02/29/16 05/18/18 glipiZIDE XL [Glucotrol XL] 5 mg PO DAILY 01/06/17 05/18/18 Metoprolol Succinate (ER) [Toprol 25 mg PO DAILY 11/09/17 05/18/18 Xl] Previous Rx's Medication Instructions Recorded Fluticasone Nasal [place] [Flonase 2 spr EA NOSTRIL DAILY #1 bottle 11/09/17 Nasal [place]] Loratadine [Claritin] 10 mg PO DAILY #30 tab 11/09/17 guaiFENesin-DM 600/30MG [Mucinex 1 each PO Q12HR #10 tab.er.12h 04/30/18 Dm] Ibuprofen [Motrin] 600 mg PO Q6HR PRN #30 day 05/18/18 Allergies Allergy/AdvReac Type Severity Reaction Status Date / Time Sulfa (Sulfonamide AdvReac Nausea & Verified 07/13/18 06:06 Antibiotics) Vomiting Review of Systems ROS Statement: Those systems with pertinent positive or pertinent negative responses have been documented in the HPI. ROS Other: All systems not noted in ROS Statement are negative. Past Medical History Past Medical History: Cancer, Diabetes Mellitus, Hyperlipidemia, Hypertension, Thyroid Disorder Additional Past Medical History / Comment(s): chronic back pain, colon CA, enlarged prostate History of Any Multi-Drug Resistant Organisms: None Reported Past Surgical History: Bowel Resection, Cholecystectomy Past Psychological History: No Psychological Hx Reported Smoking Status: Former smoker Past Alcohol Use History: None Reported Past Drug Use History: None Reported - Past Family History Mother Family Medical History: Cancer, Diabetes Mellitus Sister(s) Family Medical History: Diabetes Mellitus General Exam Limitations: no limitations Course Vital Signs 07/13/18 06:01 Temperature 98.2 F Pulse Rate 79 Respiratory 20 Rate Blood Pressure 195/122 O2 Sat by Pulse 96 Oximetry Medical Decision Making - Medical Decision Making Dictation was produced using [employer] dictation software. please excuse any grammatical, word or spelling errors. Chief Complaint: 62-year-old male past medical history of diabetes, dyslipidemia , hypertension presents with acute on chronic back pain. History of Present Illness: This 62-year-old male. Patient has history of chronic back pain. Patient states that one week ago he was shoveling snow. States that he successfully show no without any complications. 2 days later he began having tightness to his lower back. States it is worse with movement. Patient denies any neurologic complaints. Denies any urinary retention or urinary incontinence. Patient denies any nausea, vomiting. No constitutional symptoms. Patient also noted that over the last 1-2 days he's been having burning with urination. Patient denies any history of urinary tract infection. He's been taking Motrin for his lower back pain over 2 to rumors from his friends and family of the side effects he decided to stop it. Patient has no history of kidney disease, CHF or stomach ulcers. Patient denies any sexual activity. The ROS documented in this emergency department record has been reviewed and confirmed by me. Those systems with pertinent positive or negative responses have been documented in the HPI. All other systems are other negative and/or noncontributory. PHYSICAL EXAM: General Impression: Alert and oriented x3, not in acute distress HEENT: Normocephalic atraumatic, extra-ocular movements intact, pupils equal and reactive to light bilaterally, mucous membranes moist. Cardiovascular: Heart regular rate and rhythm, S1&S2 audible, no murmurs, rubs or gallops Chest: Lungs clear to auscultation bilaterally, no rhonchi, no wheeze, no rales Abdomen: Bowel sounds present, abdomen soft, non-tender, non-distended, no organomegaly Musculoskeletal: Pulses present and equal in all extremities, no peripheral edema Motor: Power 5/5 bilaterally, no focal deficits noted Neurological: CN II-XII grossly intact, no focal motor or sensory deficits noted Skin: Intact with no visualized rashes Psych: Normal affect and mood ED course: 62-year-old male presents with chief complaint of lower back pain and dysuria. Vital signs upon arrival shows blood pressure 195/122, rest of vital signs within acceptable limits. Physical exam is unremarkable. Urinalysis is negative. Patient and motor without complications. Patient given lidocaine patch, by mouth analgesia. Patient also given ortho shoe for chronic heel pain that he's been having and he is not able to afford a shoe insert recommended by [employer]. Patient told to wear this shoe when necessary symptoms. Patient reevaluated improvement of symptoms. Patient counseled on early mobility. He is encouraged to continue taking Motrin. Patient understandable and agreeable to plan. Patient to be discharged to follow up with primary care physician. - Lab Data Lab Results 07/13/18 Range/Units 07:15 Urine Color Yellow Urine Appearance Clear (Clear) Urine pH 5.0 (5.0-8.0) Ur Specific [place] 1.014 (1.001-1.035) Urine Protein Negative (Negative) Urine Glucose (UA) Negative (Negative) Urine Ketones Negative (Negative) Urine Blood Negative (Negative) Urine Nitrite Negative (Negative) Urine Bilirubin Negative (Negative) Urine Urobilinogen <2.0 (<2.0) mg/dL Ur Leukocyte Esterase Negative (Negative) Disposition Clinical Impression: Back pain, Dysuria Disposition: HOME SELF-CARE Condition: Good Instructions (If sedation given, give patient instructions): Low Back Strain ( ED) Is patient prescribed a controlled substance at d/c from ED?: No Referrals: Ant Araya DO [Primary Care Provider] - 1-2 days Time of Disposition: 07:41
[2018-07-13 07:25] LABS: Appearance,Urine Clear (Clear); Bilirubin,Urine Negative (Negative); Blood,Urine Negative (Negative); Color,Urine Yellow; Glucose,Urine (UA) Negative (Negative); Ketones,Urine Negative (Negative); Leukocyte Esterase,Urine Negative (Negative); Nitrite,Urine Negative (Negative); Protein,Urine Negative (Negative); Specific Gravity,Urine 1.014 (1.001-1.035); Urobilinogen,Urine <2.0 mg/dL (<2.0)
[2018-07-13 08:01] VITALS: BP 190/102; PULSE 72; RESP 18; TEMP 97
== END 2018-07-13 08:05 | disposition home or self-care (01) ==
LOC: EC 05:50
DX: M54.5 Low back pain (principal); G89.29 Other chronic pain; R30.0 Dysuria; E78.5 Hyperlipidemia, unspecified; I10 Essential (primary) hypertension; E11.9 Type 2 diabetes mellitus without complications; N40.0 Benign prostatic hyperplasia without lower urinary tract symptoms; E07.9 Disorder of thyroid, unspecified; Z87.891 Personal history of nicotine dependence; Z88.2 Allergy status to sulfonamides; Z79.84 Long term (current) use of oral hypoglycemic drugs; Z79.890 Hormone replacement therapy; Z79.899 Other long term (current) drug therapy; Z85.038 Personal history of other malignant neoplasm of large intestine; Z90.49 Acquired absence of other specified parts of digestive tract
CPT/HCPCS: 81003; 87086; 99283

== ENCOUNTER 2019-02-18 08:18 | Emergency (ER) | payer MEDICARE, OTHER ==
[2019-02-18 08:23] VITALS: BP 173/101; PULSE 90; RESP 16; TEMP 97.6
--- NOTE | 2019-02-18 08:46 | ED ---
Upper Extremity HPI - General Chief Complaint: Extremity Injury, Upper Stated Complaint: Lt shoulder pain Time Seen by Provider: 02/18/19 08:28 Source: patient, RN notes reviewed Mode of arrival: ambulatory Limitations: no limitations - History of Present Illness Initial Comments: 62-year-old male presents emergency Department chief complaint of left shoulder pain. Patient is left-hand dominant. Patient states her last week or so he's been having increasing pain. Patient states that he'shad it with the lift his arm up because of discomfort. He denies any chest pain or shortness breath. Patient states he feels some clicking and grinding his left shoulder. Patient denies any paresthesias. Patient denies any other complaints this time. Patie nt did have relief with ibuprofen. - Related Data Home Medications Medication Instructions Recorded Confirmed Cholecalciferol (Vitamin D3) 2,000 unit PO HS 08/08/15 02/18/19 [Vitamin D3] Levothyroxine Sodium [Synthroid] 100 mcg PO HS 08/08/15 02/18/19 Ranitidine HCl [Zantac] 150 mg PO BID 08/08/15 02/18/19 Tamsulosin [Flomax] 0.4 mg PO HS 08/08/15 02/18/19 metFORMIN HCL 1,000 mg PO BID 08/08/15 02/18/19 Atorvastatin [Lipitor] 10 mg PO MOWEFR 02/29/16 02/18/19 glipiZIDE XL [Glucotrol XL] 5 mg PO DAILY 01/06/17 02/18/19 Metoprolol Succinate (ER) [Toprol 25 mg PO DAILY 11/09/17 02/18/19 Xl] Lisinopril 40 mg PO DAILY 02/18/19 02/18/19 Previous Rx's Medication Instructions Recorded Ibuprofen [Motrin] 600 mg PO Q8HR PRN #30 tab 02/18/19 Allergies Allergy/AdvReac Type Severity Reaction Status Date / Time Sulfa (Sulfonamide AdvReac Nausea & Verified 07/13/18 06:06 Antibiotics) Vomiting Review of Systems ROS Statement: Those systems with pertinent positive or pertinent negative responses have been documented in the HPI. ROS Other: All systems not noted in ROS Statement are negative. Past Medical History Past Medical History: Cancer, Diabetes Mellitus, Hyperlipidemia, Hypertension, Thyroid Disorder Additional Past Medical History / Comment(s): chronic back pain, colon CA, enlarged prostate History of Any Multi-Drug Resistant Organisms: None Reported Past Surgical History: Bowel Resection, Cholecystectomy Past Psychological History: No Psychological Hx Reported Smoking Status: Former smoker Past Alcohol Use History: None Reported Past Drug Use History: None Reported - Past Family History Mother Family Medical History: Cancer, Diabetes Mellitus Sister(s) Family Medical History: Diabetes Mellitus General Exam Limitations: no limitations General appearance: alert, in no apparent distress Head exam: Present: atraumatic, normocephalic, normal inspection Eye exam: Present: normal appearance, PERRL, EOMI. Absent: scleral icterus, conjunctival injection, periorbital swelling ENT exam: Present: normal exam, normal oropharynx, mucous membranes moist Neck exam: Present: normal inspection, full ROM. Absent: tenderness, meningismus, lymphadenopathy Respiratory exam: Present: normal lung sounds bilaterally. Absent: respiratory distress, wheezes, rales, rhonchi, stridor Cardiovascular Exam: Present: regular rate, normal rhythm, normal heart sounds. Absent: systolic murmur, diastolic murmur, rubs, gallop, clicks Extremities exam: Present: other (Left shoulder is tenderness with palpation, pain with range of motion neurovascular intact full equal radial pulses, cap refill less than 2 seconds full strength the left elbow) Skin exam: Present: warm, dry, intact, normal color. Absent: rash Course Vital Signs 02/18/19 08:19 Temperature 97.6 F Pulse Rate 90 Respiratory 16 Rate Blood Pressure 173/101 O2 Sat by Pulse 97 Oximetry Medical Decision Making - Medical Decision Making 63-year-old male presents emergency Department with complaint of left shoulder pain. Patient had increasing pain last week with movement. Patient is left- hand dominant. X-ray shows moderate degenerative changes an patient has symptoms of rotator cuff syndrome. Patient will continue anti-inflammatories will follow-up with orthopedics and return for any worsening symptoms. Disposition Clinical Impression: Rotator cuff syndrome of left shoulder, Osteoarthritis of left shoulder Disposition: HOME SELF-CARE Condition: Stable Instructions (If sedation given, give patient instructions): Osteoarthritis (ED), Rotator Cuff Tendinitis (ED) Additional Instructions: Please return to the Emergency Department if symptoms worsen or any other concerns. Prescriptions: Ibuprofen [Motrin] 600 mg PO Q8HR PRN #30 tab PRN Reason: Pain Is patient prescribed a controlled substance at d/c from ED?: No Referrals: Ant Araya DO [Primary Care Provider] - 1-2 days Ced Frazier MD [STAFF PHYSICIAN] - 1-2 days Time of Disposition: 09:11
--- NOTE | 2019-02-18 08:54 | XR ---
EXAMINATION TYPE: XR shoulder complete LT DATE OF EXAM: 02/18/2019 CLINICAL HISTORY: Left shoulder pain and limited range of motion TECHNIQUE: Three views of the left shoulder are obtained. COMPARISON: None. FINDINGS: There is no acute fracture/dislocation evident in the left shoulder. [id number]-[id number] na rrowing with mild spurring acromioclavicular joint. Mild to moderate narrowing glenohumeral joint wit hout significant spurring. Distal acromion morphology unremarkable. The visualized ribs are intact an d unremarkable. IMPRESSION: As above.
== END 2019-02-18 09:14 | disposition home or self-care (01) ==
LOC: EC 08:18
DX: M19.012 Primary osteoarthritis, left shoulder (principal); M75.102 Unspecified rotator cuff tear or rupture of left shoulder, not specified as traumatic; E11.9 Type 2 diabetes mellitus without complications; E78.5 Hyperlipidemia, unspecified; I10 Essential (primary) hypertension; E07.9 Disorder of thyroid, unspecified; N40.0 Benign prostatic hyperplasia without lower urinary tract symptoms; Z79.84 Long term (current) use of oral hypoglycemic drugs; Z79.899 Other long term (current) drug therapy; Z79.890 Hormone replacement therapy; Z88.2 Allergy status to sulfonamides; Z85.038 Personal history of other malignant neoplasm of large intestine; Z87.891 Personal history of nicotine dependence; X50.9XXA Other and unspecified overexertion or strenuous movements or postures, initial encounter; Y93.89 Activity, other specified
CPT/HCPCS: 99283

== ENCOUNTER 2019-03-02 10:45 | Emergency (ER) | payer MEDICARE, OTHER ==
[2019-03-02 10:56] VITALS: RESP 16; TEMP 98
[2019-03-02] MEDS ORDERED: ALBUTEROL NEBULIZED 2.5 MG/3 ML INHALATION STA (11:07)
--- NOTE | 2019-03-02 11:10 | ED ---
General Adult HPI - General Chief complaint: Upper Respiratory Infection Stated complaint: Cough Time Seen by Provider: 03/02/19 10:54 Source: EMS, RN notes reviewed, old records reviewed Mode of arrival: EMS Limitations: no limitations - History of Present Illness Initial comments: Patient is a 63-year-old male who presents emergency department today with chief complaint of runny nose, and a cough for the past 3 days. Patient reports that he arrived via EMS today. He states that he has had a nonproductive cough overall. He did have one episode of vomiting when he is coughing 2 days ago. Patient has had no fevers or chills. Patient reports his history of diabetes and hypertension but he did not take his medications today because of distant feel like it with a stuffy nose. Patient states that he has had no other significant complaints and denies any chest pain at this time. - Related Data Home Medications Medication Instructions Recorded Confirmed Cholecalciferol (Vitamin D3) 2,000 unit PO HS 08/08/15 03/02/19 [Vitamin D3] Levothyroxine Sodium [Synthroid] 100 mcg PO HS 08/08/15 03/02/19 Ranitidine HCl [Zantac] 150 mg PO BID 08/08/15 03/02/19 Tamsulosin [Flomax] 0.4 mg PO HS 08/08/15 03/02/19 metFORMIN HCL 1,000 mg PO BID 08/08/15 03/02/19 Atorvastatin [Lipitor] 10 mg PO MOWEFR 02/29/16 03/02/19 glipiZIDE XL [Glucotrol XL] 5 mg PO DAILY 01/06/17 03/02/19 Metoprolol Succinate (ER) [Toprol 25 mg PO DAILY 11/09/17 03/02/19 Xl] Lisinopril 40 mg PO DAILY 02/18/19 03/02/19 Previous Rx's Medication Instructions Recorded Azithromycin [Zithromax Z-pack] 250 mg PO DIRECTED #6 tab 03/02/19 D-Methorphan/PE/Acetaminophen 1 each PO DAILY #10 tablet 03/02/19 [Tylenol Cold Max Day Caplet] Ofloxacin 0.3% Ophth Soln [Ocuflox 1 drops RIGHT EYE QID #1 bottle 03/02/19 Ophth Soln] methylPREDNISolone Dose Pack 4 mg PO DIRECTED #21 package 03/02/19 [Medrol Dose Pack] Allergies Allergy/AdvReac Type Severity Reaction Status Date / Time Sulfa (Sulfonamide AdvReac Nausea & Verified 03/02/19 11:15 Antibiotics) Vomiting Review of Systems ROS Statement: Those systems with pertinent positive or pertinent negative responses have been documented in the HPI. ROS Other: All systems not noted in ROS Statement are negative. Past Medical History Past Medical History: Cancer, Diabetes Mellitus, Hyperlipidemia, Hypertension, Thyroid Disorder Additional Past Medical History / Comment(s): chronic back pain, colon CA, enlarged prostate History of Any Multi-Drug Resistant Organisms: None Reported Past Surgical History: Bowel Resection, Cholecystectomy Past Psychological History: No Psychological Hx Reported Smoking Status: Former smoker Past Alcohol Use History: None Reported Past Drug Use History: None Reported - Past Family History Mother Family Medical History: Cancer, Diabetes Mellitus Sister(s) Family Medical History: Diabetes Mellitus General Exam - General Exam Comments Initial Comments: 63-year-old male. Alert and oriented 3. No distress. Limitations: no limitations General appearance: alert, in no apparent distress Head exam: Present: atraumatic, normocephalic, normal inspection Eye exam: Present: normal appearance, PERRL, EOMI. Absent: scleral icterus, conjunctival injection, periorbital swelling ENT exam: Present: normal exam, other (right eye purulent drainage. ) Neck exam: Present: normal inspection. Absent: tenderness, meningismus, lymphadenopathy Respiratory exam: Present: normal lung sounds bilaterally. Absent: respiratory distress, wheezes, rales, rhonchi, stridor Cardiovascular Exam: Present: regular rate, normal rhythm, normal heart sounds. Absent: systolic murmur, diastolic murmur, rubs, gallop, clicks GI/Abdominal exam: Present: soft, normal bowel sounds. Absent: distended, te nderness, guarding, rebound, rigid Extremities exam: Present: normal inspection, full ROM, normal capillary refill. Absent: tenderness, pedal edema, joint swelling, calf tenderness Back exam: Present: normal inspection Neurological exam: Present: alert, oriented X3, CN II-XII intact Psychiatric exam: Present: normal affect Skin exam: Present: dry Course Vital Signs 03/02/19 03/02/19 03/02/19 10:53 11:19 11:35 Temperature 98.0 F Pulse Rate 75 75 75 Respiratory 16 Rate Blood Pressure 169/112 O2 Sat by Pulse 97 Oximetry Medical Decision Making - Medical Decision Making This Patient is a 63-year-old male who presents emergency room today with 3 days of cough congestion and runny nose. Patient reports that he did have some rib pain with cough. He reports he did have mild productivity to his cough but no hemoptysis. Patient denies any resting chest pain. Patient states that he has taken nasal spray. At this time he does have some rhinorrhea and conjunctival injection and drainage from the right eye. Lungs are relatively clear but he did receive a breathing treatment. Does report some improvement of inspiration. Chest x-ray was shows evidence of atelectasis in the left lung base, borderline cardiac megaly. Patient started these results. I discussed the seems like the Patient suffering from a upper respiratory infection. With the purulent conjunctival drainage of the rain I will put the Patient on eyedrops. Discussed with the Patient on steroids for the cough and inflammation as well as a short course of antibiotics azithromycin for atypical bacteria for early pneumonia. Patient is agreeable treatment plan will comply. Return parameters were discussed. - Radiology Data Radiology results: report reviewed Borderline cardiomegaly. Minimal platelike atelectasis of the left lung base. Disposition Clinical Impression: URI (upper respiratory infection), Conjunctivitis Disposition: HOME SELF-CARE Condition: Good Additional Instructions: Please use medication as discussed. Advised to continue use the nasal spray and also use [id number] decongestant medicine. Please follow up with family doctor if symptoms have not improved over the next two days. Please return to the emergency room if your symptoms increase or worsen or for any other concerns. Prescriptions: methylPREDNISolone Dose Pack [Medrol Dose Pack] 4 mg PO DIRECTED #21 package Ofloxacin 0.3% Ophth Soln [Ocuflox Ophth Soln] 1 drops RIGHT EYE QID #1 bottle D-Methorphan/PE/Acetaminophen [Tylenol Cold Max Day Caplet] 1 each PO DAILY #10 tablet Azithromycin [Zithromax Z-pack] 250 mg PO DIRECTED #6 tab Is patient prescribed a controlled substance at d/c from ED?: No Referrals: Ant Araya DO [Primary Care Provider] - 1-2 days Time of Disposition: 12:21
--- NOTE | 2019-03-02 11:55 | XR ---
EXAMINATION TYPE: XR chest 2V DATE OF EXAM: 03/02/2019 HISTORY: cough. REFERENCE: Previous study dated 10/11/2017. FINDINGS: There is some minimal atelectasis at the left lung base. The lungs are otherwise clear. Ple ural spaces are clear. Heart size upper limits of normal. IMPRESSION: 1. BORDERLINE CARDIOMEGALY. 2. MINIMAL PLATELIKE ATELECTASIS, LEFT LUNG BASE.
[2019-03-02] MEDS ORDERED: cefTRIAXone 1,000 MG VIAL (IM USE) IM STA (12:21)
[2019-03-02] MEDS ORDERED: methylPREDNISolone SOD SUCCI 125 MG/2 ML VIAL IM ONE (12:21)
[2019-03-02 12:48] VITALS: BP 158/86; PULSE 76
== END 2019-03-02 12:47 | disposition home or self-care (01) ==
LOC: EC 10:45
DX: J06.9 Acute upper respiratory infection, unspecified (principal); H10.9 Unspecified conjunctivitis; J98.11 Atelectasis; E11.9 Type 2 diabetes mellitus without complications; E78.5 Hyperlipidemia, unspecified; E07.9 Disorder of thyroid, unspecified; I10 Essential (primary) hypertension; N40.0 Benign prostatic hyperplasia without lower urinary tract symptoms; Z79.890 Hormone replacement therapy; Z79.84 Long term (current) use of oral hypoglycemic drugs; Z79.899 Other long term (current) drug therapy; Z88.2 Allergy status to sulfonamides; Z87.891 Personal history of nicotine dependence; Z85.038 Personal history of other malignant neoplasm of large intestine
CPT/HCPCS: 99284 ×2; 96372 ×3; 94640; 87070; 87205; 71046; J2930; J0696

== ENCOUNTER 2019-05-20 10:43 | Emergency (ER) | payer MEDICARE, OTHER ==
[2019-05-20] MEDS ORDERED: hydrALAZINE HCL 20 MG/ML 1 ML VIAL IVP STA ×2 (11:23→13:00)
--- NOTE | 2019-05-20 11:30 | ED ---
General Adult HPI - General Chief complaint: Upper Respiratory Infection Stated complaint: Cold Time Seen by Provider: 05/20/19 11:00 Source: patient, RN notes reviewed, old records reviewed Mode of arrival: ambulatory Limitations: no limitations - History of Present Illness Initial comments: This is a 63-year-old male who presents emergency Department complaining that he has been sneezing a lot and he has been having a runny nose and having itchy eyes. Patient states she does have ALLERGIES and he takes nothing for it. Patient also states she has a history of high blood pressure and he took his medicines earlier today. Patient states he also has been taking some DayQuil that does have a decongestant. Patient denies any fever or chills. Patient states she has a cough occasionally. Patient denies any shortness of breath or difficulty breathing. Patient denies any chest pain. Patient denies any palpitations. Patient denies any abdominal pain patient is not vomiting diarrhea. Patient denies any lightheadedness or dizziness. Patient denies headache. - Related Data Home Medications Medication Instructions Recorded Confirmed Cholecalciferol (Vitamin D3) 2,000 unit PO HS 08/08/15 03/02/19 [Vitamin D3] Levothyroxine Sodium [Synthroid] 100 mcg PO HS 08/08/15 03/02/19 Ranitidine HCl [Zantac] 150 mg PO BID 08/08/15 03/02/19 Tamsulosin [Flomax] 0.4 mg PO HS 08/08/15 03/02/19 metFORMIN HCL 1,000 mg PO BID 08/08/15 03/02/19 Atorvastatin [Lipitor] 10 mg PO MOWEFR 02/29/16 03/02/19 glipiZIDE XL [Glucotrol XL] 5 mg PO DAILY 01/06/17 03/02/19 Metoprolol Succinate (ER) [Toprol 25 mg PO DAILY 11/09/17 03/02/19 Xl] Lisinopril 40 mg PO DAILY 02/18/19 03/02/19 Previous Rx's Medication Instructions Recorded Azithromycin [Zithromax Z-pack] 250 mg PO DIRECTED #6 tab 03/02/19 D-Methorphan/PE/Acetaminophen 1 each PO DAILY #10 tablet 03/02/19 [Tylenol Cold Max Day Caplet] Ofloxacin 0.3% Ophth Soln [Ocuflox 1 drops RIGHT EYE QID #1 bottle 03/02/19 Ophth Soln] methylPREDNISolone Dose Pack 4 mg PO DIRECTED #21 package 03/02/19 [Medrol Dose Pack] Loratadine [Claritin] 10 mg PO DAILY #7 tab 05/20/19 Allergies Allergy/AdvReac Type Severity Reaction Status Date / Time Sulfa (Sulfonamide AdvReac Nausea & Verified 03/02/19 11:15 Antibiotics) Vomiting Review of Systems ROS Statement: Those systems with pertinent positive or pertinent negative responses have been documented in the HPI. ROS Other: All systems not noted in ROS Statement are negative. Past Medical History Past Medical History: Cancer, Diabetes Mellitus, Hyperlipidemia, Hypertension, Thyroid Disorder Additional Past Medical History / Comment(s): chronic back pain, colon CA, enlar ged prostate History of Any Multi-Drug Resistant Organisms: None Reported Past Surgical History: Bowel Resection, Cholecystectomy Past Psychological History: No Psychological Hx Reported Smoking Status: Former smoker Past Alcohol Use History: None Reported Past Drug Use History: None Reported - Past Family History Mother Family Medical History: Cancer, Diabetes Mellitus Sister(s) Family Medical History: Diabetes Mellitus General Exam - General Exam Comments Initial Comments: GENERAL: Patient is well-developed and well-nourished. Patient is nontoxic and well- hydrated and is in no acute distress. ENT: Neck is soft and supple. No significant lymphadenopathy is noted. Oropharynx is clear. Moist mucous membranes. Neck has full range of motion without eliciting any pain. EYES: The sclera were anicteric and conjunctiva were pink and moist. Extraocular movements were intact and pupils were equal round and reactive to light. Eyelids were unremarkable. PULMONARY: Unlabored respirations. Good breath sounds bilaterally. No audible rales rhonchi or wheezing was noted. CARDIOVASCULAR: There is a regular rate and rhythm without any murmurs gallops or rubs. ABDOMEN: Soft and nontender with normal bowel sounds. SKIN: Skin is clear with no lesions or rashes and otherwise unremarkable. NEUROLOGIC: Patient is alert and oriented x3. Cranial nerves II through XII are grossly intact. Motor and sensory are also intact. Normal speech, volume and content. Symmetrical smile. MUSCULOSKELETAL: Normal extremities with adequate strength and full range of motion. LYMPHATICS: No significant lymphadenopathy is noted PSYCHIATRIC: Normal psychiatric evaluation. Limitations: no limitations Course Vital Signs 05/20/19 05/20/19 05/20/19 10:56 11:18 12:28 Temperature 97.3 F L 99.1 F Pulse Rate 88 91 85 Respiratory 18 20 19 Rate Blood Pressure 204/115 190/109 166/100 O2 Sat by Pulse 96 96 95 Oximetry 05/20/19 12:58 Temperature Pulse Rate Respiratory Rate Blood Pressure 174/98 O2 Sat by Pulse Oximetry Medical Decision Making - Medical Decision Making Patient has symptoms of ALLERGIES however because of his high blood pressure did start an IV so we could bring down the pressure. Patient was given hydralazine 10 mg 2. Patient's pressure came down per patient remained denied any chest pain shortness of breath or difficulty breathing while in the emergency department. Patient denied any headache patient with any blurred vision any time. Chest x-ray showed no acute abnormality. Patient describes typical seasonal ALLERGIES which she says he has been he does not take anything for it. Patient states she understands to follow-up with his doctor tomorrow. Disposition Clinical Impression: Hypertension, Seasonal allergies Disposition: HOME SELF-CARE Condition: Good Additional Instructions: Patient should follow-up with primary medical care doctor tomorrow for his high blood pressure. Patient should return to the emergency department if there are any symptoms of difficulty breathing chest pain headache blurred vision or any other new symptoms. Prescriptions: Loratadine [Claritin] 10 mg PO DAILY #7 tab Is patient prescribed a controlled substance at d/c from ED?: No Referrals: Ant Araya DO [Primary Care Provider] - 1-2 days Time of Disposition: 13:12
--- NOTE | 2019-05-20 11:54 | XR ---
EXAMINATION TYPE: XR chest 2V DATE OF EXAM: 05/20/2019 COMPARISON: 03/02/2019 TECHNIQUE: PA and lateral views submitted. HISTORY: Difficulty breathing FINDINGS: The lungs are clear and there is no pneumothorax, pleural effusion, or focal pneumonia. Reduced ins piration with ectasia of the aorta. Stable interstitium unchanged from prior exam. Biapical pleural t hickening. Degenerative change spine. IMPRESSION: 1. No acute process.
[2019-05-20 13:33] VITALS: BP 151/93; PULSE 96; RESP 18
[2019-05-20 13:40] VITALS: TEMP 98.4
== END 2019-05-20 13:35 | disposition home or self-care (01) ==
LOC: EC 10:43
DX: J30.2 Other seasonal allergic rhinitis (principal); I10 Essential (primary) hypertension; E11.9 Type 2 diabetes mellitus without complications; E07.9 Disorder of thyroid, unspecified; E78.5 Hyperlipidemia, unspecified; Z79.899 Other long term (current) drug therapy; Z79.84 Long term (current) use of oral hypoglycemic drugs; Z79.890 Hormone replacement therapy; Z87.891 Personal history of nicotine dependence; Z88.2 Allergy status to sulfonamides; Z85.038 Personal history of other malignant neoplasm of large intestine
CPT/HCPCS: 71046; 99284; 96374; 96376; J0360

== ENCOUNTER 2019-08-24 04:28 | Inpatient (IN) | payer MEDICARE, OTHER ==
[2019-08-24 04:43] LABS: Glucose,Whole Blood 186 mg/dL (75-99)
[2019-08-24 04:50] LABS: Basophils # (A) 0.1 k/uL (0-0.2); Basophils % (A) 2 %; Eosinophils # (A) 0.3 k/uL (0-0.7); Eosinophils % (A) 5 %; HGB 14.7 gm/dL (13.0-17.5); Lymphocytes # (A) 1.2 k/uL (1.0-4.8); Lymphocytes % (A) 27 %; MCH 32.2 pg (25.0-35.0); MCHC 34.9 g/dL (31.0-37.0); MCV 92.5 fL (80.0-100.0); Mean Platelet Volume 9.4; Monocytes # (A) 0.6 k/uL (0-1.0); Monocytes % (A) 12 %; Neutrophils # (A) 2.3 k/uL (1.3-7.7); Neutrophils % (A) 50 %; Platelet Count 175 k/uL (150-450); RBC 4.55 m/uL (4.30-5.90); RDW 12.5 % (11.5-15.5); WBC 4.6 k/uL (3.8-10.6)
[2019-08-24 04:59] LABS: ALT 42 U/L (4-49); AST 38 U/L (17-59); African American GFR (CKD) >90 (>60 ml/min/1.73 sqM); Alkaline Phosphatase 187 U/L (38-126); Anion Gap 8 mmol/L; Blood Urea Nitrogen 11 mg/dL (9-20); Carbon Dioxide 26 mmol/L (22-30); Chloride 104 mmol/L (98-107); Glucose 186 mg/dL (74-99); Non-African American GFR(CKD) 90 (>60 ml/min/1.73 sqM); Potassium 3.6 mmol/L (3.5-5.1); Sodium 138 mmol/L (137-145); Total Bilirubin 0.9 mg/dL (0.2-1.3); Total Protein 6.6 g/dL (6.3-8.2)
[2019-08-24 05:07] LABS: Creatine Kinase 91 U/L (55-170)
[2019-08-24 05:19] LABS: Creatine Kinase MB 0.8 ng/mL (0.0-2.4); Troponin I <0.012 ng/mL (0.000-0.034)
--- NOTE | 2019-08-24 06:23 | XR ---
EXAM: XR Chest, 2 Views CLINICAL HISTORY: ITS.REASON XR Reason: cough TECHNIQUE: Frontal and lateral views of the chest. COMPARISON: 05/20/19. FINDINGS: Lungs: Low lung volumes with patchy bilateral lung opacities, possible atelectasis or developing infiltrate. Pleural space: No significant pleural effusion or pneumothorax. Heart: Stable cardiomediastinal silhouette. Mediastinum: See above. Bones/joints: No acute fracture. IMPRESSION: Low lung volumes with patchy bilateral lung opacities, possible atelectasis or developing infiltrate.
[2019-08-24] MEDS ORDERED: IPRATROPIUM-ALBUTEROL 3 ML NEB INHALATION STA (06:25)
--- NOTE | 2019-08-24 06:25 | ED ---
General Adult HPI - General Chief complaint: Headache Stated complaint: Hypertension Time Seen by Provider: 08/24/19 05:04 Source: patient, EMS Mode of arrival: EMS Limitations: no limitations - History of Present Illness Initial comments: Dimitrios is an obese 64-year-old male presents the ER today for evaluation of runny nose, sore throat, cough, congestion, body aches an episode of sweating this morning. Patient reports he's had a few days of cough congestion runny nose and sore throat. Today he woke from sleep drenched in sweat, he changed hi s clothes but again continued to feel sweaty and had some shaking chills. This prompted him to come to the ER for evaluation. Patient denies any chest pain palpitations or shortness breath. Does report a mild headache. No nausea or vomiting. - Related Data Home Medications Medication Instructions Recorded Confirmed Cholecalciferol (Vitamin D3) 2,000 unit PO HS 08/08/15 03/02/19 [Vitamin D3] Levothyroxine Sodium [Synthroid] 100 mcg PO HS 08/08/15 03/02/19 Ranitidine HCl [Zantac] 150 mg PO BID 08/08/15 03/02/19 Tamsulosin [Flomax] 0.4 mg PO HS 08/08/15 03/02/19 metFORMIN HCL 1,000 mg PO BID 08/08/15 03/02/19 Atorvastatin [Lipitor] 10 mg PO MOWEFR 02/29/16 03/02/19 glipiZIDE XL [Glucotrol XL] 5 mg PO DAILY 01/06/17 03/02/19 Metoprolol Succinate (ER) [Toprol 25 mg PO DAILY 11/09/17 03/02/19 Xl] Lisinopril 40 mg PO DAILY 02/18/19 03/02/19 Previous Rx's Medication Instructions Recorded Azithromycin [Zithromax Z-pack] 250 mg PO DIRECTED #6 tab 03/02/19 D-Methorphan/PE/Acetaminophen 1 each PO DAILY #10 tablet 03/02/19 [Tylenol Cold Max Day Caplet] Ofloxacin 0.3% Ophth Soln [Ocuflox 1 drops RIGHT EYE QID #1 bottle 03/02/19 Ophth Soln] methylPREDNISolone Dose Pack 4 mg PO DIRECTED #21 package 03/02/19 [Medrol Dose Pack] Loratadine [Claritin] 10 mg PO DAILY #7 tab 05/20/19 Allergies Allergy/AdvReac Type Severity Reaction Status Date / Time Sulfa (Sulfonamide AdvReac Nausea & Verified 08/24/19 04:33 Antibiotics) Vomiting Review of Systems ROS Statement: Those systems with pertinent positive or pertinent negative responses have been documented in the HPI. ROS Other: All systems not noted in ROS Statement are negative. Past Medical History Past Medical History: Cancer, Diabetes Mellitus, Hyperlipidemia, Hypertension, Thyroid Disorder Additional Past Medical History / Comment(s): chronic back pain, colon CA, enlarged prostate History of Any Multi-Drug Resistant Organisms: None Reported Past Surgical History: Bowel Resection, Cholecystectomy Past Psychological History: No Psychological Hx Reported Smoking Status: Former smoker Past Alcohol Use History: None Reported Past Drug Use History: None Reported - Past Family History Mother Family Medical History: Cancer, Diabetes Mellitus Sister(s) Family Medical History: Diabetes Mellitus General Exam - General Exam Comments Initial Comments: Physical Exam GENERAL: Patient is well-developed and well-nourished. Patient is nontoxic and well-hydrated and is in no distress. HENT: Normocephalic, Atraumatic. EYES: PERRL, EOMI PULMONARY: Wheezing in all lung alvarez CARDIOVASCULAR: There is a regular rate and rhythm without any murmurs gallops or rubs. ABDOMEN: Soft and nontender with normal bowel sounds. SKIN: Skiin is diaphoretic, warm : Deferred NEUROLOGIC: Patient is alert and oriented x3. Moving all extremities spontaneously MUSCULOSKELETAL: Normal extremities with adequate strength and full range of motion. No lower extremity swelling or edema. No calf tenderness. PSYCHIATRIC: Normal psychiatric evaluation. Limitations: no limitations Course Vital Signs 08/24/19 08/24/19 08/24/19 04:29 04:48 04:55 Temperature 98.4 F Pulse Rate 73 67 Respiratory 18 20 20 Rate Blood Pressure 198/105 171/99 O2 Sat by Pulse 98 97 Oximetry 08/24/19 08/24/19 08/24/19 05:33 06:00 07:01 Temperature Pulse Rate 70 66 70 Respiratory 20 20 Rate Blood Pressure 167/101 170/102 O2 Sat by Pulse 97 98 Oximetry 08/24/19 07:14 Temperature Pulse Rate 71 Respiratory Rate Blood Pressure O2 Sat by Pulse Oximetry EKG Findings - EKG Comments: EKG Findings:: EKG was obtained, EKG obtained at 4:32 AM, rate 73 rhythm sinus, normal axis, normal intervals, OR 144, QRS 92, QTc [address] elevations or depressions no evidence of acute ischemia infarction or arrhythmia. Medical Decision Making - Medical Decision Making Patient was seen and evaluated, history is obtained from patient except 64-year-old male with URI-like symptoms for day today with productive cough, wheezing, afebrile but is diaphoretic and appears unwell Workup was initiated, influenza swab was obtained Chest x-ray concerning for bilateral patchy pneumonia, influence a negative The patient has no travel however there is concern for COVID virus based on history and physical exam, negative Influenza and CXR findings The patient will be tested for COVID Patient will remain in respiratory isolation Patient care was discussed with Dr. Weaver who agrees with the plan for admission, empiric treatment for pneumonia and testing for COVID - Lab Data Result diagrams: 08/24/19 04:35 08/24/19 04:35 Lab Results 08/24/19 08/24/19 08/24/19 Range/Units 04:35 04:35 04:35 WBC 4.6 (3.8-10.6) k/uL RBC 4.55 (4.30-5.90) m/uL Hgb 14.7 (13.0-17.5) gm/dL Hct 42.0 (39.0-53.0) % MCV 92.5 (80.0-100.0) fL MCH 32.2 (25.0-35.0) pg MCHC 34.9 (31.0-37.0) g/dL RDW 12.5 (11.5-15.5) % Plt Count 175 (150-450) k/uL Neutrophils % 50 % Lymphocytes % 27 % Monocytes % 12 % Eosinophils % 5 % Basophils % 2 % Neutrophils # 2.3 (1.3-7.7) k/uL Lymphocytes # 1.2 (1.0-4.8) k/uL Monocytes # 0.6 (0-1.0) k/uL Eosinophils # 0.3 (0-0.7) k/uL Basophils # 0.1 (0-0.2) k/uL Sodium 138 (137-145) mmol/L Potassium 3.6 (3.5-5.1) mmol/L Chloride 104 (98-107) mmol/L Carbon Dioxide 26 (22-30) mmol/L Anion Gap 8 mmol/L BUN 11 (9-20) mg/dL Creatinine 0.90 (0.66-1.25) mg/dL Est GFR (CKD-EPI)AfAm >90 (>60 ml/min/1.73 sqM) Est GFR (CKD-EPI)NonAf 90 (>60 ml/min/1.73 sqM) Glucose 186 H (74-99) mg/dL POC Glucose (mg/dL) (75-99) mg/dL POC Glu Utility Appraiser ID Calcium 9.0 (8.4-10.2) mg/dL Total Bilirubin 0.9 (0.2-1.3) mg/dL AST 38 (17-59) U/L ALT 42 (4-49) U/L Alkaline Phosphatase 187 H (38-126) U/L Total Creatine Kinase 91 (55-170) U/L CK-MB (CK-2) 0.8 (0.0-2.4) ng/mL CK-MB (CK-2) Rel Index 0.9 Troponin I <0.012 (0.000-0.034) ng/mL Total Protein 6.6 (6.3-8.2) g/dL Albumin 4.0 (3.5-5.0) g/dL Influenza Type A RNA (Not Detectd) Influenza Type B (PCR) (Not Detectd) 08/24/19 08/24/19 Range/Units 04:42 05:34 WBC (3.8-10.6) k/uL RBC (4.30-5.90) m/uL Hgb (13.0-17.5) gm/dL Hct (39.0-53.0) % MCV (80.0-100.0) fL MCH (25.0-35.0) pg MCHC (31.0-37.0) g/dL RDW (11.5-15.5) % Plt Count (150-450) k/uL Neutrophils % % Lymphocytes % % Monocytes % % Eosinophils % % Basophils % % Neutrophils # (1.3-7.7) k/uL Lymphocytes # (1.0-4.8) k/uL Monocytes # (0-1.0) k/uL Eosinophils # (0-0.7) k/uL Basophils # (0-0.2) k/uL Sodium (137-145) mmol/L Potassium (3.5-5.1) mmol/L Chloride (98-107) mmol/L Carbon Dioxide (22-30) mmol/L Anion Gap mmol/L BUN (9-20) mg/dL Creatinine (0.66-1.25) mg/dL Est GFR (CKD-EPI)AfAm (>60 ml/min/1.73 sqM) Est GFR (CKD-EPI)NonAf (>60 ml/min/1.73 sqM) Glucose (74-99) mg/dL POC Glucose (mg/dL) 186 H (75-99) mg/dL POC Glu Utility Appraiser ID Linwood Thompson Calcium (8.4-10.2) mg/dL Total Bilirubin (0.2-1.3) mg/dL AST (17-59) U/L ALT (4-49) U/L Alkaline Phosphatase (38-126) U/L Total Creatine Kinase (55-170) U/L CK-MB (CK-2) (0.0-2.4) ng/mL CK-MB (CK-2) Rel Index Troponin I (0.000-0.034) ng/mL Total Protein (6.3-8.2) g/dL Albumin (3.5-5.0) g/dL Influenza Type A RNA Not Detected (Not Detectd) Influenza Type B (PCR) Not Detected (Not Detectd) Disposition Clinical Impression: Bilateral pneumonia Disposition: ADMITTED IP TO THIS HOSP Condition: Serious
[2019-08-24] MEDS ORDERED: AZITHROMYCIN 500 MG in SODIUM CHLORIDE 0.9% 250 ML IVPB STA (07:06)
[2019-08-24] MEDS ORDERED: PNEUMONIA PROTOCOL UTILIZED 1 EACH MISC PO PRN (07:06)
[2019-08-24] MEDS: SODIUM CHLORIDE 0.9% 1,000 ML IV SCH ×2 (07:35→17:29)
--- NOTE | 2019-08-24 08:03 | CT ---
EXAMINATION TYPE: CT chest wo con DATE OF EXAM: 08/24/2019 COMPARISON: HISTORY: pneumonia? CT DLP: 686.8 mGycm. Automated Exposure Control for Dose Reduction was Utilized. TECHNIQUE: CT scan of the thorax is performed without IV contrast. FINDINGS: LUNGS: There are patchy bilateral areas of infiltrate centrally within the left upper lobe peripheral ly within the right superior segment lower lobe. No pneumothorax or sizable pleural effusion.. MEDIASTINUM: Lack of IV contrast is noted to limit evaluation for mediastinal and especially hilar ad enopathy. Findings are suspicious for left hilar adenopathy or mass with peribronchial wall thickenin g. Coronary artery calcification is seen and there is a small pericardial effusion. OTHER: Hypertrophic and degenerative change of the spine. Surgical clips in the gallbladder fossa. Hy podensities within the right kidney compatible with indeterminate nodule by noncontrast CT but likely related to cysts. More solid-appearing lesion along the mid lateral right kidney measuring 1.2 cm. B ilateral renal calculi the largest measuring 9 mm on the left. Bilateral adrenal gland thickening.. D ensity involving the dome of the liver too small to characterize IMPRESSION: 1. Patchy bilateral areas of groundglass infiltrate correlate for pneumonia, pneumonitis or alveoliti s. Infectious etiology favored. 2. There is a more solid-appearing nodule along the lateral margin of the left kidney measuring 1.2 c m. This is noted dating back to 2011 CT of the abdomen could represent hemorrhagic cyst. Given the hy perdensity recommend correlation with MRI. 3. Bilateral nephrolithiasis
[2019-08-24] MEDS ORDERED: cloNIDine HCL 0.1 MG TAB PO STA (08:04)
[2019-08-24] MEDS: METOPROLOL SUCCINATE (ER) 25 MG TAB.ER.24H PO SCH (10:10)
[2019-08-24 12:11] LABS: Glucose,Whole Blood 180 mg/dL (75-99)
--- NOTE | 2019-08-24 12:15 | P.HPIM ---
History of Present Illness Patient is a very pleasant 64-year-old gentleman came in with complains of runny nose sore throat congestion body aches and sweating has been going on since slightly improved yesterday because of which he stayed home but the patient started excessively sweating as well because of which patient came to ER patient was had complaining of chills but there is no obvious fever he didn't check for any fever did was complaining of mild headache denied any nausea vomiting. Patient denied any significant shortness of breath orthopnea or paroxysmal nocturnal dyspnea. Patient had a CAT scan of the chest which showed diffuse groundglass pasty isn't probability of atypical pneumonia. Patient denied any recent travel or exposure to coronary virus cases Review of Systems REVIEW OF SYSTEMS: CONSTITUTIONAL: No fever, no malaise, no fatigue. HEENT: As mentioned in HPI CARDIOVASCULAR: No chest pain, orthopnea, PND, no palpitations, no syncope. PULMONARY: No shortness of breath, no cough, no hemoptysis. GASTROINTESTINAL: No diarrhea, no nausea, no vomiting, no abdominal pain. NEUROLOGICAL: No headaches, no weakness, no numbness. HEMATOLOGICAL: Denies any bleeding or petechiae. GENITOURINARY: Denies any burning micturition, frequency, or urgency. MUSCULOSKELETAL/RHEUMATOLOGICAL: Denies any joint pain, swelling, or any muscle pain. ENDOCRINE: Denies any polyuria or polydipsia. The rest of the 14-point review of systems is negative. Past Medical History Past Medical History: Cancer, Diabetes Mellitus, Hyperlipidemia, Hypertension, Thyroid Disorder Additional Past Medical History / Comment(s): chronic back pain, colon CA, enlarged prostate History of Any Multi-Drug Resistant Organisms: None Reported Past Surgical History: Bowel Resection, Cholecystectomy Past Psychological History: No Psychological Hx Reported Smoking Status: Former smoker Past Alcohol Use History: None Reported Past Drug Use History: None Reported - Past Family History Mother Family Medical History: Cancer, Diabetes Mellitus Sister(s) Family Medical History: Diabetes Mellitus Medications and Allergies Home Medications Medication Instructions Recorded Confirmed Type Cholecalciferol (Vitamin D3) 2,000 unit PO HS 08/08/15 08/24/19 History [Vitamin D3] Levothyroxine Sodium [Synthroid] 100 mcg PO HS 08/08/15 08/24/19 History Tamsulosin [Flomax] 0.4 mg PO HS 08/08/15 08/24/19 History metFORMIN HCL 1,000 mg PO BID 08/08/15 08/24/19 History Atorvastatin [Lipitor] 10 mg PO MOWEFR 02/29/16 08/24/19 History glipiZIDE XL [Glucotrol XL] 5 mg PO DAILY 01/06/17 08/24/19 History Metoprolol Succinate (ER) [Toprol 25 mg PO DAILY 11/09/17 08/24/19 History Xl] Lisinopril 40 mg PO DAILY 02/18/19 08/24/19 History Famotidine [Pepcid] 20 mg PO BID 08/24/19 08/24/19 History Allergies Allergy/AdvReac Type Severity Reaction Status Date / Time Sulfa (Sulfonamide AdvReac Nausea & Verified 08/24/19 04:33 Antibiotics) Vomiting Physical Exam Vitals: Vital Signs Temp Pulse Resp BP Pulse Ox 08/24/19 11:37 99.0 F 91 18 172/98 94 L 08/24/19 10:54 91 18 172/98 94 L 08/24/19 10:50 99.0 F 89 21 179/94 95 08/24/19 10:30 89 21 179/94 95 08/24/19 10:13 89 18 179/94 96 08/24/19 09:00 93 24 186/106 95 08/24/19 08:30 84 26 H 199/112 94 L 08/24/19 08:00 102 H 27 H 185/112 97 08/24/19 07:57 104 H 19 185/112 08/24/19 07:14 71 08/24/19 07:01 70 08/24/19 07:00 180/106 08/24/19 06:30 68 99 08/24/19 06:00 66 20 167/101 98 08/24/19 05:33 70 20 167/101 97 08/24/19 05:30 63 160/101 97 08/24/19 05:00 70 171/99 97 08/24/19 04:55 67 20 171/99 97 08/24/19 04:52 68 96 08/24/19 04:48 20 08/24/19 04:29 98.4 F 73 18 198/105 98 Intake and Output 08/23/19 08/24/19 08/24/19 22:59 06:59 14:59 Intake Total 250 Balance 250 Intake: Amount of Fluid Infused ( 250 ml) Other: Weight 108.862 kg PHYSICAL EXAMINATION: GENERAL: The patient is alert and oriented x3, not in any acute distress. Well developed, well nourished. he is diaphoretic HEENT: Pupils are round and equally reacting to light. EOMI. No scleral icterus. No conjunctival pallor. Normocephalic, atraumatic. No pharyngeal erythema. No thyromegaly. CARDIOVASCULAR: S1 and S2 present. No murmurs, rubs, or gallops. PULMONARY: Chest is clear to auscultation, no wheezing or crackles. ABDOMEN: Soft, nontender, nondistended, normoactive bowel sounds. No palpable organomegaly. MUSCULOSKELETAL: No joint swelling or deformity. EXTREMITIES: No cyanosis, clubbing, or pedal edema. NEUROLOGICAL: Gross neurological examination did not reveal any focal deficits. SKIN: No rashes. Results CBC & Chem 7: 08/24/19 04:35 08/24/19 04:35 Labs: Abnormal Lab Results - Last 24 Hours (Table) 08/24/19 08/24/19 Range/Units 04:35 04:42 Glucose 186 H (74-99) mg/dL POC Glucose (mg/dL) 186 H (75-99) mg/dL Alkaline Phosphatase 187 H (38-126) U/L Assessment and Plan Plan: -Shortness of breath sore throat and URI like symptoms: Possibility of atypical pneumonia testing the CT findings although we need to rule out COVID, COVID 19 is sitting was ordered. She is presently on isolation a possibility of CHF is low we'll obtain a BNP clinically patient doesn't have any JVD -Hemorrhagic cyst on the left kidney which was present in 2011 as well further workup once he is off isolation 1 bilateral nephrolithiasis patient is asymptomatic and he with IV fluids as is an incidental finding will obtain a urinalysis -Type 2 diabetes mellitus for which patient will be started on sliding scale and stent metformin will be held -Benign prostatic hypertrophy -Hypothyroidism -Hypertension
[2019-08-24] MEDS ORDERED: INSULIN ASPART (NovoLOG) 100 UNIT/ML VIAL SQ SCH (12:30)
[2019-08-24] MEDS: LEVOFLOXACIN 750 MG TAB PO SCH (13:20)
[2019-08-24 15:15] LABS: Appearance,Urine Clear (Clear); Bilirubin,Urine Negative (Negative); Blood,Urine Small (Negative); Color,Urine Yellow; Glucose,Urine (UA) 3+ (Negative); Hyaline Casts,Urine 1 /lpf (0-2); Ketones,Urine Negative (Negative); Leukocyte Esterase,Urine Negative (Negative); Mucus,Urine Rare /hpf; Nitrite,Urine Negative (Negative); PH, Urine 5.5 (5.0-8.0); Protein,Urine 1+ (Negative); RBC,Urine 27 /hpf (0-5); Specific Gravity,Urine 1.021 (1.001-1.035); Urobilinogen,Urine <2.0 mg/dL (<2.0); WBC,Urine 1 /hpf (0-5)
[2019-08-24 16:51] LABS: Glucose,Whole Blood 160 mg/dL (75-99)
[2019-08-24] MEDS: metFORMIN 500 MG TAB PO SCH (17:29)
[2019-08-24] MEDS: LISINOPRIL 20 MG TAB PO SCH (17:30)
[2019-08-24] MEDS ORDERED: LABETALOL 5 MG/ML VIAL MDV IVP PRN (19:55)
[2019-08-24] MEDS: TAMSULOSIN 0.4 MG CAP.ER.24H PO SCH (20:03)
[2019-08-24] MEDS: FAMOTIDINE 20 MG TAB PO SCH (20:03)
[2019-08-24] MEDS: LEVOTHYROXINE 100 MCG TAB PO SCH (20:03)
[2019-08-24] MEDS: IPRATROPIUM-ALBUTEROL 3 ML NEB INHALATION PRN (20:10)
[2019-08-24 21:37] LABS: Glucose,Whole Blood 139 mg/dL (75-99)
[2019-08-25] MEDS: metFORMIN 500 MG TAB PO SCH ×2 (06:42→16:39)
[2019-08-25] MEDS: ACETAMINOPHEN TAB 325 MG TAB PO PRN (06:42)
[2019-08-25] MEDS: SODIUM CHLORIDE 0.9% 1,000 ML IV SCH (06:44)
[2019-08-25 06:45] LABS: Glucose,Whole Blood 164 mg/dL (75-99)
[2019-08-25] MEDS: LISINOPRIL 20 MG TAB PO SCH (08:54)
[2019-08-25] MEDS: FAMOTIDINE 20 MG TAB PO SCH ×2 (08:54→20:38)
[2019-08-25] MEDS: METOPROLOL SUCCINATE (ER) 25 MG TAB.ER.24H PO SCH (08:54)
[2019-08-25] MEDS ORDERED: amLODIPine 5 MG TAB PO SCH (09:00)
[2019-08-25] MEDS ORDERED: LISINOPRIL 20 MG TAB PO SCH (09:00)
[2019-08-25] MEDS: IPRATROPIUM-ALBUTEROL 3 ML NEB INHALATION PRN ×3 (09:39→21:19)
[2019-08-25] MEDS: BUDESONIDE 0.5 MG/2 ML NEBU INHALATION SCH ×2 (09:40→21:19)
--- NOTE | 2019-08-25 10:18 | P.PN ---
Subjective 64-year-old gentleman came in with complains of runny nose sore throat congestion body aches and sweating has been going on since slightly improved yesterday because of which he stayed home but the patient started excessively sweating as well because of which patient came to ER patient was had complaining of chills but there is no obvious fever he didn't check for any fever did was complaining of mild headache denied any nausea vomiting. Patient denied any significant shortness of breath orthopnea or paroxysmal nocturnal dyspnea. Patient had a CAT scan of the chest which showed diffuse groundglass pasty isn't probability of atypical pneumonia. Patient denied any recent travel or exposure to coronary virus cases. 08/25/2019 Patient's blood pressure is elevated quite a bit patient was started on amlodipine but I do not expect that his blood pressures to come down immediately with amlodipine. IV fluids will be discontinued. Patient is feeling much better now Constitutional: Denied any fatigue denied any fever. Cardio vascular: denied any chest pain, palpitations Gastrointestinal denied any nausea vomiting Pulmonary: Denied any shortness of breath cough Neurologic denied any new focal deficits All inpatient medications were reviewed and appropriate changes in these medications as dictated in the interval history and assessment and plan. Objective - Vital Signs Vital signs: Vital Signs Temp 97.8 F 08/25/19 09:15 Pulse 93 08/25/19 09:54 Resp 16 08/25/19 09:15 BP 209/105 08/25/19 09:15 Pulse Ox 95 08/25/19 09:40 Intake & Output 08/24/19 08/25/19 08/25/19 18:59 06:59 18:59 Intake Total 1010 1080 180 Output Total 300 300 300 Balance 710 780 -120 Weight 108.862 kg Intake: Amount of Fluid Infused ( 250 ml) Intake, IV Titration 400 Amount Sodium Chloride 0.9% 1, 400 000 ml @ 100 mls/hr IV . Q10H [facility] Rx#:[id number] Oral 360 1080 180 Output: Urine 300 300 300 - Exam PHYSICAL EXAMINATION: GENERAL: The patient is alert and oriented x3, not in any acute distress. Well developed, well nourished. HEENT: Pupils are round and equally reacting to light. EOMI. No scleral icterus. No conjunctival pallor. Normocephalic, atraumatic. No pharyngeal erythema. No thyromegaly. CARDIOVASCULAR: S1 and S2 present. No murmurs, rubs, or gallops. PULMONARY: Expiratory wheezing on exam ABDOMEN: Soft, nontender, nondistended, normoactive bowel sounds. No palpable organomegaly. MUSCULOSKELETAL: No joint swelling or deformity. EXTREMITIES: No cyanosis, clubbing, or pedal edema. NEUROLOGICAL: Gross neurological examination did not reveal any focal deficits. SKIN: No rashes. - Labs CBC & Chem 7: 08/24/19 04:35 08/24/19 04:35 Labs: Abnormal Lab Results - Last 24 Hours (Table) 08/24/19 08/24/19 08/24/19 Range/Units 12:01 14:40 16:45 POC Glucose (mg/dL) 180 H 160 H (75-99) mg/dL Urine Protein 1+ H (Negative) Urine Glucose (UA) 3+ H (Negative) Urine Blood Small H (Negative) Urine RBC 27 H (0-5) /hpf Urine Mucus Rare H (None) /hpf 08/24/19 08/25/19 Range/Units 21:36 06:41 POC Glucose (mg/dL) 139 H 164 H (75-99) mg/dL Urine Protein (Negative) Urine Glucose (UA) (Negative) Urine Blood (Negative) Urine RBC (0-5) /hpf Urine Mucus (None) /hpf Microbiology - Last 24 Hours (Table) 08/24/19 09:22 Gram Stain - Preliminary Sputum Sputum Culture - Preliminary Assessment and Plan Plan: -Shortness of breath sore throat and URI like symptoms: Possibility of atypical pneumonia testing the CT findings although we need to rule out COVID, COVID 19 is sitting was ordered. She and is on isolation and patient doesn't appear to have any CHF. Patient is feeling better today -Hemorrhagic cyst on the left kidney which was present in 2011 as well further workup once he is off isolation 1 bilateral nephrolithiasis patient is asymptomatic and he with IV fluids as is an incidental finding will obtain a urinalysis -Type 2 diabetes mellitus for which patient is on his home regimen as he declined to use subcutaneous insulin -Benign prostatic hypertrophy -Hypothyroidism -Hypertension: Highly elevated blood pressures IV fluids will be discontinued patient was started on amlodipine 5 mg
--- NOTE | 2019-08-25 10:18 | XR ---
EXAMINATION TYPE: XR chest 1V portable DATE OF EXAM: 08/25/2019 COMPARISON: 08/24/2019 chest x-ray and CT thorax HISTORY: Follow-up for pneumonia. TECHNIQUE: Single frontal view of the chest is obtained. FINDINGS: There is a subtle left pleural effusion blunting the costophrenic angle. The cardiac silh ouette size is upper limits of normal in size. The osseous structures are intact. IMPRESSION: Subtle left pleural effusion that appears new from the prior. The previously seen ground glass opacities on CT are not well appreciated on x-ray.
[2019-08-25 12:06] LABS: Glucose,Whole Blood 174 mg/dL (75-99)
[2019-08-25] MEDS: LEVOFLOXACIN 750 MG TAB PO SCH (12:10)
[2019-08-25] MEDS ORDERED: GLIPIZIDE 5 MG PO SCH (17:30)
[2019-08-25] MEDS: TAMSULOSIN 0.4 MG CAP.ER.24H PO SCH (20:38)
[2019-08-25] MEDS: LEVOTHYROXINE 100 MCG TAB PO SCH (20:38)
[2019-08-25] MEDS ORDERED: ATORVASTATIN 10 MG TAB PO SCH (21:00)
[2019-08-25] MEDS ORDERED: amLODIPine 10 MG TAB PO SCH (21:45)
[2019-08-25] MEDS ORDERED: hydrALAZINE HCL 20 MG/ML 1 ML VIAL IVP ONE (21:45)
[2019-08-25] MEDS ORDERED: hydrALAZINE HCL 20 MG/ML 1 ML VIAL IVP PRN (22:29)
[2019-08-25] MEDS: amLODIPine 5 MG TAB PO SCH (22:49)
[2019-08-26] MEDS: ACETAMINOPHEN TAB 325 MG TAB PO PRN (01:31)
[2019-08-26] MEDS: metFORMIN 500 MG TAB PO SCH (06:13)
[2019-08-26 06:16] VITALS: RESP 16
[2019-08-26] MEDS: METOPROLOL SUCCINATE (ER) 25 MG TAB.ER.24H PO SCH (09:57)
[2019-08-26] MEDS: LEVOFLOXACIN 750 MG TAB PO SCH (09:57)
[2019-08-26] MEDS: FAMOTIDINE 20 MG TAB PO SCH (09:58)
[2019-08-26] MEDS: amLODIPine 5 MG TAB PO SCH (09:58)
[2019-08-26] MEDS: BUDESONIDE 0.5 MG/2 ML NEBU INHALATION SCH (10:12)
[2019-08-26] MEDS: LISINOPRIL 20 MG TAB PO SCH (11:14)
[2019-08-26 12:43] LABS: Glucose,Whole Blood 157 mg/dL (75-99)
[2019-08-26] MEDS: IPRATROPIUM-ALBUTEROL 3 ML NEB INHALATION PRN (13:13)
[2019-08-26 13:19] VITALS: BP 186/104; TEMP 98.6
[2019-08-26 13:20] VITALS: PULSE 103
--- NOTE | 2019-08-26 13:23 | P.DS ---
Providers Date of admission: 08/25/19 09:27 Attending physician: Antonio Powers Primary care physician: [facility] Course: 64-year-old gentleman came in with complains of runny nose sore throat congestion body aches and sweating has been going on since slightly improved yesterday because of which he stayed home but the patient started excessively sweating as well because of which patient came to ER patient was had complaining of chills but there is no obvious fever he didn't check for any fever did was complaining of mild headache denied any nausea vomiting. Patient denied any significant shortness of breath orthopnea or paroxysmal nocturnal dyspnea. Patient had a CAT scan of the chest which showed diffuse groundglass pasty isn't probability of atypical pneumonia. Patient denied any recent travel or exposure to coronary virus cases. 08/25/2019 Patient's blood pressure is elevated quite a bit patient was started on amlodipine but I do not expect that his blood pressures to come down immediately with amlodipine. IV fluids will be discontinued. Patient is feeling much better now 08/26/2019 No overnight events patient the was started on amlodipine as today because of elevated blood pressure this is a going to be effective in about a week but patient probably will need higher dose of 5 amlodipine addition of a diuretic as an outpatient. COVID testing is still pending and patient will be notified about the results and patient will be given instructions about isolation and patient probably has atypical pneumonia and will be discharged today. PHYSICAL EXAMINATION: GENERAL: The patient is alert and oriented x3, not in any acute distress. Well developed, well nourished. HEENT: Pupils are round and equally reacting to light. EOMI. No scleral icterus. No conjunctival pallor. Normocephalic, atraumatic. No pharyngeal erythema. No thyromegaly. CARDIOVASCULAR: S1 and S2 present. No murmurs, rubs, or gallops. PULMONARY: Chest is clear to auscultation, no wheezing or crackles. ABDOMEN: Soft, nontender, nondistended, normoactive bowel sounds. No palpable organomegaly. MUSCULOSKELETAL: No joint swelling or deformity. EXTREMITIES: No cyanosis, clubbing, or pedal edema. NEUROLOGICAL: Gross neurological examination did not reveal any focal deficits. SKIN: No rashes. Assessment and Plan Plan: -Shortness of breath sore throat and URI like symptoms: Possibility of atypical pneumonia . we need to rule out COVID, COVID 19 PCR testing is pending. -Hemorrhagic cyst on the left kidney which was present in 2011 as well further workup as an outpatient patient will be referred to urology 1 bilateral nephrolithiasis patient is asymptomatic -Type 2 diabetes mellitus for which patient is on his home regimen as he declined to use subcutaneous insulin -Benign prostatic hypertrophy -Hypothyroidism -Hypertension: Patient Condition at Discharge: Serious Plan - Discharge Summary Discharge Rx Participant: No New Discharge Prescriptions: New Fluticasone/Salmeterol [Advair 250-50 Diskus] 1 inhalation PO BID #1 inhaler Levofloxacin [Levaquin] 750 mg PO DAILY #5 tab Albuterol Inhaler [Ventolin Hfa Inhaler] 1 - 2 puff INHALATION Q6HR PRN #1 inhaler PRN Reason: Shortness Of Breath Or Wheezing amLODIPine [Norvasc] 5 mg PO BID #30 tab Continue Tamsulosin [Flomax] 0.4 mg PO HS Levothyroxine Sodium [Synthroid] 100 mcg PO HS metFORMIN HCL 1,000 mg PO BID Cholecalciferol (Vitamin D3) [Vitamin D3] 2,000 unit PO HS Atorvastatin [Lipitor] 10 mg PO MOWEFR glipiZIDE XL [Glucotrol XL] 5 mg PO DIRECTED Metoprolol Succinate (ER) [Toprol XL] 25 mg PO DAILY Lisinopril 40 mg PO DAILY Famotidine [Pepcid] 20 mg PO BID Discharge Medication List Cholecalciferol (Vitamin D3) [Vitamin D3] 2,000 unit PO HS 08/08/15 [History] Levothyroxine Sodium [Synthroid] 100 mcg PO HS 08/08/15 [History] Tamsulosin [Flomax] 0.4 mg PO HS 08/08/15 [History] metFORMIN HCL 1,000 mg PO BID 08/08/15 [History] Atorvastatin [Lipitor] 10 mg PO MOWEFR 02/29/16 [History] glipiZIDE XL [Glucotrol XL] 5 mg PO DIRECTED 01/06/17 [History] Metoprolol Succinate (ER) [Toprol XL] 25 mg PO DAILY 11/09/17 [History] Lisinopril 40 mg PO DAILY 02/18/19 [History] Famotidine [Pepcid] 20 mg PO BID 08/24/19 [History] Albuterol Inhaler [Ventolin Hfa Inhaler] 1 - 2 puff INHALATION Q6HR PRN #1 inhaler 08/26/19 [Rx] Fluticasone/Salmeterol [Advair 250-50 Diskus] 1 inhalation PO BID #1 inhaler 08/26/19 [Rx] Levofloxacin [Levaquin] 750 mg PO DAILY #5 tab 08/26/19 [Rx] amLODIPine [Norvasc] 5 mg PO BID #30 tab 08/26/19 [Rx] Follow up Appointment(s)/Referral(s): Ant Araya DO [Primary Care Provider] - 3 Days
== END 2019-08-26 16:51 | disposition home or self-care (01) | DRG 195 ==
LOC: EC 04:28 → 6NMEDSUR 07:06 → 3SCARD 11:41 → OBSVTOIN 08-25 09:27
PROVIDERS: ADMIT Internal Medicine; ATTEND Internal Medicine
DX: J18.9 Pneumonia, unspecified organism (principal); E03.9 Hypothyroidism, unspecified; E11.9 Type 2 diabetes mellitus without complications; E66.9 Obesity, unspecified; E78.5 Hyperlipidemia, unspecified; I10 Essential (primary) hypertension; N20.0 Calculus of kidney; N40.0 Benign prostatic hyperplasia without lower urinary tract symptoms; Z78.9 Other specified health status; Z79.84 Long term (current) use of oral hypoglycemic drugs; Z79.890 Hormone replacement therapy; Z79.899 Other long term (current) drug therapy; Z83.3 Family history of diabetes mellitus; Z85.038 Personal history of other malignant neoplasm of large intestine; Z87.442 Personal history of urinary calculi; Z87.891 Personal history of nicotine dependence; Z88.2 Allergy status to sulfonamides; Z90.49 Acquired absence of other specified parts of digestive tract
CPT/HCPCS: 36415; 71045; 71046; 71250; 80053; 81001; 82550; 82553; 83880; 84484; 85025; 86738; 87040; 87070; 87205; 87449; 87502; 93005; 94640; 94760; 96365; 96366; 96367; 99285

== ENCOUNTER 2020-02-25 08:55 | Day surgery (SDC) | payer MEDICARE, OTHER ==
[2020-02-20 14:31] VITALS: BMI 38.2
[~2020-02-25 08:55] MED LIST: LACTATED RINGERS 1,000 ML IV SCH; ONDANSETRON 4 MG/2 ML VIAL IVP PRN
--- NOTE | 2020-02-25 09:11 | P.GSHP ---
History of Present Illness H&P Date: 02/25/20 CHIEF COMPLAINT: Colon screen HISTORY OF PRESENT ILLNESS: The patient is a 64-year-old male who presents for colon screen. Lower endoscopy was offered for further evaluation and management. PAST MEDICAL HISTORY: Please see list. PAST SURGICAL HISTORY: Please see list. MEDICATIONS: Please see list. ALLERGIES: Please see list. SOCIAL HISTORY: No illicit drug use FAMILY HISTORY: No reports of Crohn disease or ulcerative colitis. REVIEW OF ORGAN SYSTEMS: CONSTITUTIONAL: No reports of fevers or chills. PHYSICAL EXAM: VITAL SIGNS: Stable GENERAL: Well-developed pleasant in no acute distress. HEENT: No scleral icterus. Extraocular movements grossly intact. Moist buccal mucosa. NECK: Supple without lymphadenopathy. CHEST: Unlabored respirations. Equal bilateral excursions. CARDIOVASCULAR: Regular rate and rhythm. Distal 2+ pulses. ABDOMEN: Soft, nontender, nondistended. MUSCULOSKELETAL: No clubbing, cyanosis, or edema. ASSESSMENT: 1. Colon screen. PLAN: 1. Recommend proceeding with a lower endoscopy Past Medical History Past Medical History: Cancer, Diabetes Mellitus, Hyperlipidemia, Hypertension, Prostate Disorder, Thyroid Disorder Additional Past Medical History / Comment(s): chronic back pain, colon CA, enlarged prostate, kidney stone History of Any Multi-Drug Resistant Organisms: None Reported Past Surgical History: Bowel Resection, Cholecystectomy Past Anesthesia/Blood Transfusion Reactions: No Reported Reaction Smoking Status: Former smoker - Past Family History Mother Family Medical History: Cancer, COPD, Diabetes Mellitus Additional Family Medical History / Comment(s): lung cancer Sister(s) Family Medical History: Diabetes Mellitus Medications and Allergies Home Medications Medication Instructions Recorded Confirmed Type Cholecalciferol (Vitamin D3) 2,000 unit PO HS 08/08/15 02/20/20 History [Vitamin D3] Levothyroxine Sodium [Synthroid] 100 mcg PO DAILY 08/08/15 02/20/20 History Tamsulosin [Flomax] 0.4 mg PO HS 08/08/15 02/20/20 History metFORMIN HCL 1,000 mg PO BID 08/08/15 02/20/20 History Atorvastatin [Lipitor] 10 mg PO MOWEFR 02/29/16 02/20/20 History glipiZIDE XL [Glucotrol XL] 5 mg PO DAILY 01/06/17 02/20/20 History Metoprolol Succinate (ER) [Toprol 25 mg PO HS 11/09/17 02/20/20 History XL] lisinopriL 40 mg PO DAILY 02/18/19 02/20/20 History Famotidine [Pepcid] 20 mg PO BID 08/24/19 02/20/20 History Albuterol Inhaler (u) [Ventolin 1 - 2 puff INHALATION Q6HR PRN #1 08/26/19 02/20/20 Rx Hfa Inhaler ([facility] [place] inhaler Fluticasone/Salmeterol [Advair 1 inhalation PO BID PRN 02/20/20 02/20/20 History 250-50 Diskus] amLODIPine [Norvasc] 5 mg PO DAILY 02/20/20 02/20/20 History Allergies Allergy/AdvReac Type Severity Reaction Status Date / Time Sulfa (Sulfonamide AdvReac Nausea & Verified 02/20/20 14:19 Antibiotics) Vomiting
[2020-02-25 09:49] LABS: Glucose,Whole Blood 95 mg/dL (75-99)
[2020-02-25] MEDS ORDERED: LIDOCAINE 1% (10MG/ML) FOR IV START INTRADERMA ONE (09:50)
[2020-02-25 09:56] VITALS: TEMP 97
[2020-02-25] MEDS ORDERED: PROPOFOL 10 MG/ML 50 ML VIAL IV ONE (09:59)
[2020-02-25] MEDS ORDERED: MIDAZOLAM 2 MG/2 ML VIAL ONE (09:59)
[2020-02-25 10:25] VITALS: RESP 16
--- NOTE | 2020-02-25 10:26 | P.PCN ---
Date of Procedure: 02/25/20 Description of Procedure: PREOPERATIVE DIAGNOSIS: History of colon cancer POSTOPERATIVE DIAGNOSIS: History of colon cancer Sigmoid colon adenoma OPERATION: Colonoscopy to the cecum, ileocecal valve and appendiceal orifice. Colonoscopy with cold forceps biopsy, sigmoid colon SURGEON: Yojana Santo MD. ANESTHESIA: MAC. INDICATIONS: The patient is a 64-year-old male who presents with history of colon cancer. Last colonoscopy over 5+ years ago. Benefits and risks were described and informed consent was obtained. DESCRIPTION OF PROCEDURE: The patient had undergone Gatorade, MiraLAX and Dulcolax prep. He had been brought into the operating room and laid in the left lateral decubitus position. After adequate intravenous sedation, the rectum was examined with 2% lidocaine jelly. No external hemorrhoids were encountered. The rectal tone was within normal limits. The prostatitic fossa was unremarkable. No lesions were palpated in the rectal vault. An Olympus colonoscope was advanced until the cecum, ileocecal valve and appendiceal orifice were clearly viewed. The prep was good. No scattered diverticulosis was encountered. A 4 mm colon adenoma at 30 cm from the anal verge was removed with cold forceps biopsy. No evidence of focal colitis was found. Retroflexion of the scope demonstrated grade 1 internal hemorrhoids without active bleeding or inflammation. The colon was desufflated. The patient had tolerated the procedure well. Withdrawal time was over 6 minutes. FINDINGS: Aronchick preparation quality scale 2 (1-5) Internal hemorrhoids, grade 1 No external prolapsed hemorrhoids. No arteriovenous malformations. Removal of one polyp: - A 4 mm colon adenoma at 30 cm from the anal verge was removed with cold forceps biopsy, sigmoid colon No focal colitis. RECOMMENDATIONS: Lower endoscopy in 5 years, 2024 Plan - Discharge Summary Discharge Rx Participant: No New Discharge Prescriptions: Continue Tamsulosin [Flomax] 0.4 mg PO HS Levothyroxine Sodium [Synthroid] 100 mcg PO DAILY metFORMIN HCL 1,000 mg PO BID Cholecalciferol (Vitamin D3) [Vitamin D3] 2,000 unit PO HS Atorvastatin [Lipitor] 10 mg PO MOWEFR glipiZIDE XL [Glucotrol XL] 5 mg PO DAILY Metoprolol Succinate (ER) [Toprol XL] 25 mg PO HS lisinopriL 40 mg PO DAILY Famotidine [Pepcid] 20 mg PO BID Albuterol Inhaler (Mhu) [Ventolin Hfa Inhaler (Mhu)] 1 - 2 puff INHALATION Q6HR PRN #1 inhaler PRN Reason: Shortness Of Breath Or Wheezing Fluticasone/Salmeterol [Advair 250-50 Diskus] 1 inhalation PO BID PRN PRN Reason: Dyspnea amLODIPine [Norvasc] 5 mg PO DAILY Discharge Medication List Cholecalciferol (Vitamin D3) [Vitamin D3] 2,000 unit PO HS 08/08/15 [History] Levothyroxine Sodium [Synthroid] 100 mcg PO DAILY 08/08/15 [History] Tamsulosin [Flomax] 0.4 mg PO HS 08/08/15 [History] metFORMIN HCL 1,000 mg PO BID 08/08/15 [History] Atorvastatin [Lipitor] 10 mg PO MOWEFR 02/29/16 [History] glipiZIDE XL [Glucotrol XL] 5 mg PO DAILY 01/06/17 [History] Metoprolol Succinate (ER) [Toprol XL] 25 mg PO HS 11/09/17 [History] lisinopriL 40 mg PO DAILY 02/18/19 [History] Famotidine [Pepcid] 20 mg PO BID 08/24/19 [History] Albuterol Inhaler (Mhu) [Ventolin Hfa Inhaler (Mhu)] 1 - 2 puff INHALATION Q6HR PRN #1 inhaler 08/26/19 [Rx] Fluticasone/Salmeterol [Advair 250-50 Diskus] 1 inhalation PO BID PRN 02/20/20 [History] amLODIPine [Norvasc] 5 mg PO DAILY 02/20/20 [History] Follow up Appointment(s)/Referral(s): Yojana Santo MD [STAFF PHYSICIAN] - As Needed Patient Instructions/Handouts: Colorectal Polyps (DC) Activity/Diet/Wound Care/Special Instructions: Repeat colonoscopy 5 years, 2024 Discharge Disposition: HOME SELF-CARE
[2020-02-25 10:32] LABS: Glucose,Whole Blood 99 mg/dL (75-99)
[2020-02-25 10:39] VITALS: BP 141/75; PULSE 103
== END 2020-02-25 10:56 | disposition home or self-care (01) ==
LOC: ORWHC2ENDO 08:55
PROVIDERS: ATTEND Surgery Plastic and Reconstructive Surgery
DX: Z12.11 Encounter for screening for malignant neoplasm of colon (principal); D12.5 Benign neoplasm of sigmoid colon; K64.0 First degree hemorrhoids; Z85.038 Personal history of other malignant neoplasm of large intestine; E11.9 Type 2 diabetes mellitus without complications; E78.5 Hyperlipidemia, unspecified; I10 Essential (primary) hypertension; E07.9 Disorder of thyroid, unspecified; G89.29 Other chronic pain; M54.9 Dorsalgia, unspecified; N40.0 Benign prostatic hyperplasia without lower urinary tract symptoms; E66.9 Obesity, unspecified; Z88.2 Allergy status to sulfonamides; Z87.442 Personal history of urinary calculi; Z90.49 Acquired absence of other specified parts of digestive tract; Z87.891 Personal history of nicotine dependence; Z79.899 Other long term (current) drug therapy; Z79.890 Hormone replacement therapy; Z79.84 Long term (current) use of oral hypoglycemic drugs; Z79.51 Long term (current) use of inhaled steroids; Z68.38 Body mass index [BMI] 38.0-38.9, adult; Z83.3 Family history of diabetes mellitus; Z80.1 Family history of malignant neoplasm of trachea, bronchus and lung
CPT/HCPCS: 88305; 45380; J2250; J2704

== ENCOUNTER 2020-05-24 10:38 | Emergency (ER) | payer MEDICARE, OTHER ==
[2020-05-24 10:45] VITALS: RESP 18; TEMP 97.7
[2020-05-24] MEDS ORDERED: LIDOCAINE 5% PATCH TOPICAL STA (11:09)
--- NOTE | 2020-05-24 11:12 | ED ---
General Adult HPI - General Chief complaint: Back Pain/Injury Stated complaint: back pain Time Seen by Provider: 05/24/20 10:49 Source: patient Mode of arrival: ambulatory Limitations: no limitations - History of Present Illness Initial comments: Dictation was produced using [employer] dictation software. please excuse any grammatical, word or spelling errors. This patient was cared for during a federal and state declared state of [facility] secondary to Covid 19 Chief Complaint: 64-year-old female presents with left lower back pain History of Present Illness: Patient 64-year-old male who presents with back pain. Patient states he has pain whenever he turns then sound coarse tries to stand up. Patient said he would ambulate. He locates the pain to his left lower back pain. Denies any radiation of symptoms. No numbness and paresthesias to the legs. No urinary incontinence or saddle anesthesia. Denies any fevers or constitutional symptoms. The ROS documented in this emergency department record has been reviewed and confirmed by me. Those systems with pertinent positive or negative responses have been documented in the HPI. All other systems are other negative and/or noncontributory. PHYSICAL EXAM: General Impression: Alert and oriented x3, not in acute distress HEENT: Normocephalic atraumatic, extra-ocular movements intact, pupils equal and reactive to light bilaterally, mucous membranes moist. Cardiovascular: Heart regular rate and rhythm Chest: Able to complete full sentences, no retractions, no tachypnea Abdomen: abdomen soft, non-tender, non-distended, no organomegaly Musculoskeletal: Pulses present and equal in all extremities, no peripheral edema, tenderness to palpation over the left lower back at the soft tissues of the left lumbar spine Motor: no focal deficits noted Neurological: CN II-XII grossly intact, no focal motor or sensory deficits noted Skin: Intact with no visualized rashes Psych: Normal affect and mood ED course: 64-year-old male presents with clinical presentation consistent with muscular skeletal back strain. vital signs upon arrival shows heart rate of 109, respiratory signs within acceptable limits. Urinalysis is obtained showing large amount of red blood cells. At this point patient's back pain could been secondary to nephrolithiasis. Patient has a history of kidney stones. Lumbar spine x-ray and pelvis x-ray shows no acute processes. Ultrasound of the kidneys urinary bladder shows nonobstructing nephrolithiasis of the left kidney. Patient reevaluated at bedside with stable medical condition. Patient's symptoms are likely secondary muscular skeletal back pain. Patient given prescription for analgesics and referral to access specialist. - Related Data Home Medications Medication Instructions Recorded Confirmed Cholecalciferol (Vitamin D3) 2,000 unit PO HS 08/08/15 05/24/20 [Vitamin D3] Levothyroxine Sodium [Synthroid] 100 mcg PO DAILY 08/08/15 05/24/20 Tamsulosin [Flomax] 0.4 mg PO HS 08/08/15 05/24/20 metFORMIN HCL 1,000 mg PO BID 08/08/15 05/24/20 Atorvastatin [Lipitor] 10 mg PO MOWEFR 02/29/16 05/24/20 glipiZIDE XL [Glucotrol XL] 5 mg PO DAILY 01/06/17 05/24/20 Metoprolol Succinate (ER) [Toprol 25 mg PO HS 11/09/17 05/24/20 XL] lisinopriL 40 mg PO DAILY 02/18/19 05/24/20 Famotidine [Pepcid] 20 mg PO BID 08/24/19 05/24/20 amLODIPine [Norvasc] 5 mg PO DAILY 02/20/20 05/24/20 Acetaminophen [Tylenol] 1,000 mg PO Q4-6H PRN 05/24/20 05/24/20 Ibuprofen [Motrin Ib] 600 mg PO Q8H PRN 05/24/20 05/24/20 Previous Rx's Medication Instructions Recorded HYDROcodone/APAP 5-325MG [[place] 1 tab PO Q6HR PRN 3 Days #12 tab 05/24/20 5-325] Allergies Allergy/AdvReac Type Severity Reaction Status Date / Time Sulfa (Sulfonamide AdvReac Nausea & Verified 05/24/20 11:10 Antibiotics) Vomiting Review of Systems ROS Statement: Those systems with pertinent positive or pertinent negative responses have been documented in the HPI. ROS Other: All systems not noted in ROS Statement are negative. Past Medical History Past Medical History: Cancer, Diabetes Mellitus, Hyperlipidemia, Hypertension, Prostate Disorder, Thyroid Disorder Additional Past Medical History / Comment(s): chronic back pain, colon CA, enlarged prostate, kidney stone History of Any Multi-Drug Resistant Organisms: None Reported Past Surgical History: Bowel Resection, Cholecystectomy Past Anesthesia/Blood Transfusion Reactions: No Reported Reaction Past Psychological History: No Psychological Hx Reported Smoking Status: Former smoker Past Alcohol Use History: None Reported Past Drug Use History: None Reported - Past Family History Mother Family Medical History: Cancer, COPD, Diabetes Mellitus Additional Family Medical History / Comment(s): lung cancer Sister(s) Family Medical History: Diabetes Mellitus General Exam Limitations: no limitations Course Vital Signs 05/24/20 10:42 Temperature 97.7 F Pulse Rate 109 H Respiratory 18 Rate Blood Pressure 177/106 O2 Sat by Pulse 99 Oximetry Medical Decision Making - Lab Data Result diagrams: 05/24/20 12:16 05/24/20 12:16 Lab Results 05/24/20 05/24/20 05/24/20 Range/Units 11:10 12:16 12:16 WBC 6.9 (3.8-10.6) k/uL RBC 4.78 (4.30-5.90) m/uL Hgb 15.8 (13.0-17.5) gm/dL Hct 44.7 (39.0-53.0) % MCV 93.4 (80.0-100.0) fL MCH 33.1 (25.0-35.0) pg MCHC 35.5 (31.0-37.0) g/dL RDW 12.6 (11.5-15.5) % Plt Count 227 (150-450) k/uL MPV 10.1 Neutrophils % 76 % Lymphocytes % 15 % Monocytes % 6 % Eosinophils % 1 % Basophils % 1 % Neutrophils # 5.2 (1.3-7.7) k/uL Lymphocytes # 1.1 (1.0-4.8) k/uL Monocytes # 0.4 (0-1.0) k/uL Eosinophils # 0.1 (0-0.7) k/uL Basophils # 0.1 (0-0.2) k/uL Sodium 138 (137-145) mmol/L Potassium 3.9 (3.5-5.1) mmol/L Chloride 104 (98-107) mmol/L Carbon Dioxide 24 (22-30) mmol/L Anion Gap 10 mmol/L BUN 16 (9-20) mg/dL Creatinine 1.03 (0.66-1.25) mg/dL Est GFR (CKD-EPI)AfAm 89 (>60 ml/min/1.73 sqM) Est GFR (CKD-EPI)NonAf 77 (>60 ml/min/1.73 sqM) Glucose 130 H (74-99) mg/dL Calcium 9.5 (8.4-10.2) mg/dL Urine Color Yellow Urine Appearance Clear (Clear) Urine pH 5.5 (5.0-8.0) Ur Specific [place] 1.017 (1.001-1.035) Urine Protein 1+ H (Negative) Urine Glucose (UA) Negative (Negative) Urine Ketones Negative (Negative) Urine Blood Moderate H (Negative) Urine Nitrite Negative (Negative) Urine Bilirubin Negative (Negative) Urine Urobilinogen <2.0 (<2.0) mg/dL Ur Leukocyte Esterase Negative (Negative) Urine RBC 118 H (0-5) /hpf Urine WBC 2 (0-5) /hpf Ur Squamous Epith Cells <1 (0-4) /hpf Urine Bacteria Rare H (None) /hpf Hyaline Casts 3 H (0-2) /lpf Urine Mucus Many H (None) /hpf Disposition Clinical Impression: Back pain Disposition: HOME SELF-CARE Condition: Good Instructions (If sedation given, give patient instructions): Acute Low Back Pain (ED) Prescriptions: HYDROcodone/APAP 5-325MG [[place] 5-325] 1 tab PO Q6HR PRN 3 Days #12 tab PRN Reason: Severe Pain Is patient prescribed a controlled substance at d/c from ED?: Yes If prescribed controlled substance>3 days was MAPS reviewed?: Prescribed <3 Days Referrals: Diomedes Blackwell DO [Doctor of Osteopathic Medicine] - 1-2 days Time of Disposition: 13:46
[2020-05-24 11:37] LABS: Appearance,Urine Clear (Clear); Bacteria,Urine Rare /hpf; Bilirubin,Urine Negative (Negative); Blood,Urine Moderate (Negative); Color,Urine Yellow; Glucose,Urine (UA) Negative (Negative); Hyaline Casts,Urine 3 /lpf (0-2); Ketones,Urine Negative (Negative); Leukocyte Esterase,Urine Negative (Negative); Mucus,Urine Many /hpf; Nitrite,Urine Negative (Negative); PH, Urine 5.5 (5.0-8.0); Protein,Urine 1+ (Negative); RBC,Urine 118 /hpf (0-5); Specific Gravity,Urine 1.017 (1.001-1.035); Squamous Epithelial Cell,Urine <1 /hpf (0-4); Urobilinogen,Urine <2.0 mg/dL (<2.0); WBC,Urine 2 /hpf (0-5)
--- NOTE | 2020-05-24 11:45 | XR ---
EXAMINATION TYPE: XR lumbar spine 2 or 3V DATE OF EXAM: 05/24/2020 CLINICAL HISTORY: pain TECHNIQUE: Three views of the lumbar spine are submitted. COMPARISON: None. FINDINGS: There are 5 lumbar type vertebral bodies identified. The lumbar spine shows satisfactory alignment w ithout evidence of acute fracture or dislocation. Vertebral body heights are within normal limits. Disc spaces are within normal limits. Calcific density overlies the region of the left kidney. IMPRESSION: No acute fracture or dislocation is seen in the lumbar spine. ICD 10 NO FRACTURE, INITIAL EVALUATION
--- NOTE | 2020-05-24 11:50 | XR ---
EXAMINATION TYPE: XR pelvis AP view DATE OF EXAM: 05/24/2020 CLINICAL HISTORY: pain TECHNIQUE: Single view the pelvis is submitted. FINDINGS: No evidence for fracture, dislocation or bony lesion. Joint spaces are well-preserved. S I joints appear symmetric. IMPRESSION: 1. No acute fracture or dislocation seen. ICD 10 NO FRACTURE, INITIAL EVALUATION
--- NOTE | 2020-05-24 12:57 | US ---
EXAMINATION TYPE: US kidneys/renal and bladder DATE OF EXAM: 05/24/2020 COMPARISON: NONE CLINICAL HISTORY: hematuria, flank pain. Left flank pain. patient states having a hx of renal stones . EXAM MEASUREMENTS: Right Kidney: 11.3 x 4.5 x 6.1 cm Left Kidney: 12.5 x 5.0 x 5.6 cm Right Kidney: Multiple cystic appearing lesions seen. Largest mid= 1.6 x 1.4 x 1.7 cm. Largest later al= 1.8 x 1.5 x 1.3 cm. Left Kidney: Multiple echogenic foci. largest mid= 0.3 cm. Largest medial = 1.0 cm Bladder: mildly distended, anehcoic Bilateral Jets not seen There is no evidence for hydronephrosis at this point in time. No masses are identified. The urinar y bladder is anechoic. Bilateral ureteral jets are seen. IMPRESSION: Nonobstructing nephrolithiasis left kidney. Right-sided renal cyst.
[2020-05-24 13:23] LABS: Basophils # (A) 0.1 k/uL (0-0.2); Basophils % (A) 1 %; Eosinophils # (A) 0.1 k/uL (0-0.7); Eosinophils % (A) 1 %; HCT 44.7 % (39.0-53.0); HGB 15.8 gm/dL (13.0-17.5); Lymphocytes # (A) 1.1 k/uL (1.0-4.8); Lymphocytes % (A) 15 %; MCH 33.1 pg (25.0-35.0); MCHC 35.5 g/dL (31.0-37.0); MCV 93.4 fL (80.0-100.0); Mean Platelet Volume 10.1; Monocytes # (A) 0.4 k/uL (0-1.0); Monocytes % (A) 6 %; Neutrophils # (A) 5.2 k/uL (1.3-7.7); Neutrophils % (A) 76 %; Platelet Count 227 k/uL (150-450); RBC 4.78 m/uL (4.30-5.90); RDW 12.6 % (11.5-15.5); WBC 6.9 k/uL (3.8-10.6)
[2020-05-24 13:32] LABS: Calcium 9.5 mg/dL (8.4-10.2); Potassium 3.9 mmol/L (3.5-5.1)
[2020-05-24 14:03] VITALS: BP 131/67; PULSE 72
== END 2020-05-24 14:03 | disposition home or self-care (01) ==
LOC: EC 10:38
DX: M54.5 Low back pain (principal); N20.0 Calculus of kidney; I10 Essential (primary) hypertension; E11.9 Type 2 diabetes mellitus without complications; E07.9 Disorder of thyroid, unspecified; N40.0 Benign prostatic hyperplasia without lower urinary tract symptoms; E78.5 Hyperlipidemia, unspecified; Z79.890 Hormone replacement therapy; Z79.899 Other long term (current) drug therapy; Z79.84 Long term (current) use of oral hypoglycemic drugs; Z88.2 Allergy status to sulfonamides; Z87.891 Personal history of nicotine dependence; Z87.442 Personal history of urinary calculi; Z85.038 Personal history of other malignant neoplasm of large intestine
CPT/HCPCS: 36415; 72100; 72170; 76770; 80048; 81001; 85025; 99284

== ENCOUNTER 2020-09-20 08:24 | Emergency (ER) | payer MEDICARE, OTHER ==
[2020-09-20 08:34] VITALS: TEMP 98
[2020-09-20] MEDS ORDERED: ETODOLAC 400 MG TAB PO STA (08:52)
--- NOTE | 2020-09-20 09:09 | XR ---
EXAMINATION TYPE: XR wrist complete RT DATE OF EXAM: 09/20/2020 CLINICAL HISTORY: Pain. TECHNIQUE: Frontal, lateral and oblique images of the right wrist are obtained. 4 view scaphoid vie w is performed. COMPARISON: None FINDINGS: There is no acute fracture/dislocation evident in the right wrist. [id number] narrow ing and mild spurring base of first metacarpal. The overlying soft tissue appears unremarkable. IMPRESSION: As above.
--- NOTE | 2020-09-20 09:42 | ED ---
General Adult HPI - General Chief complaint: Extremity Injury, Upper Stated complaint: hand & arm pain Time Seen by Provider: 09/20/20 08:30 Source: patient Mode of arrival: ambulatory Limitations: no limitations - History of Present Illness Initial comments: Patient is a 65-year-old male with multiple medical conditions presents emergency department with reported right wrist pain. Patient is left-hand dominant. States that for the past several days he has had pain along the anterior aspect of his right hand and he feels as if he has a decreased rn admissions strength. Patient does report to carrying heavy groceries the other day which seemed to exacerbate his pain. He has been using Motrin at home without improvement in his symptoms. He denies any pain in his elbow or shoulder. Denies any weakness in his lower airways. No fevers or chills. Denies any numbness or tingling into his hand. No other alleviating, precipitating or modifying factors - Related Data Home Medications Medication Instructions Recorded Confirmed Cholecalciferol (Vitamin D3) 2,000 unit PO HS 08/08/15 05/24/20 [Vitamin D3] Levothyroxine Sodium [Synthroid] 100 mcg PO DAILY 08/08/15 05/24/20 Tamsulosin [Flomax] 0.4 mg PO HS 08/08/15 05/24/20 metFORMIN HCL 1,000 mg PO BID 08/08/15 05/24/20 Atorvastatin [Lipitor] 10 mg PO MOWEFR 02/29/16 05/24/20 glipiZIDE XL [Glucotrol XL] 5 mg PO DAILY 01/06/17 05/24/20 Metoprolol Succinate (ER) [Toprol 25 mg PO HS 11/09/17 05/24/20 XL] lisinopriL 40 mg PO DAILY 02/18/19 05/24/20 Famotidine [Pepcid] 20 mg PO BID 08/24/19 05/24/20 amLODIPine [Norvasc] 5 mg PO DAILY 02/20/20 05/24/20 Acetaminophen [Tylenol] 1,000 mg PO Q4-6H PRN 05/24/20 05/24/20 Ibuprofen [Motrin Ib] 600 mg PO Q8H PRN 05/24/20 05/24/20 Previous Rx's Medication Instructions Recorded HYDROcodone/APAP 5-325MG [[place] 1 tab PO Q6HR PRN 3 Days #12 tab 05/24/20 5-325] Naproxen [Naprosyn] 500 mg PO Q12HR #30 tab 09/20/20 Allergies Allergy/AdvReac Type Severity Reaction Status Date / Time Sulfa (Sulfonamide AdvReac Nausea & Verified 09/20/20 08:30 Antibiotics) Vomiting Review of Systems ROS Statement: Those systems with pertinent positive or pertinent negative responses have been documented in the HPI. ROS Other: All systems not noted in ROS Statement are negative. Past Medical History Past Medical History: Cancer, Diabetes Mellitus, Hyperlipidemia, Hypertension, Prostate Disorder, Thyroid Disorder Additional Past Medical History / Comment(s): chronic back pain, colon CA, enlarged prostate, kidney stone History of Any Multi-Drug Resistant Organisms: None Reported Past Surgical History: Bowel Resection, Cholecystectomy Past Anesthesia/Blood Transfusion Reactions: No Reported Reaction Past Psychological History: No Psychological Hx Reported Smoking Status: Former smoker Past Alcohol Use History: None Reported Past Drug Use History: None Reported - Past Family History Mother Family Medical History: Cancer, COPD, Diabetes Mellitus Additional Family Medical History / Comment(s): lung cancer Sister(s) Family Medical History: Diabetes Mellitus General Exam Limitations: no limitations General appearance: alert, in no apparent distress Extremities exam: Present: normal inspection, full ROM, tenderness (over the anterior distal wrist. Positive tinel sign. 5/5 muscle strength in median, rad ial, ulnar and anterior interosseous nerve distributions. Intact sensation in the medial, radial and ulnar nerve distributions. Cap refill less than 3 seconds. 2+ DP and PT pulses) Neurological exam: Present: alert, oriented X3, CN II-XII intact Psychiatric exam: Present: normal affect, normal mood Skin exam: Present: warm, dry, intact, normal color. Absent: rash Course Vital Signs 09/20/20 09/20/20 08:31 10:05 Temperature 98 F Pulse Rate 80 81 Respiratory 18 16 Rate Blood Pressure 177/108 152/86 O2 Sat by Pulse 97 96 Oximetry Medical Decision Making - Medical Decision Making Upon arrival patient is placed into room 13. A thorough history and physical exam is performed. X-rays performed which demonstrates mild to moderate narrowing and mild spurring at the base of the first metacarpal. The patient does have significant tenderness over the median nerve. Did discuss treatment with carpal tunnel brace and NSAIDs. Patient is given follow up information for the orthopedic surgeon. Patient will be sent home with a prescription for Naprosyn. Take as directed. Return to the emergency room for any new or worsening symptoms per patient was discharged home in stable condition Disposition Clinical Impression: Right wrist pain Disposition: HOME SELF-CARE Condition: Stable Instructions (If sedation given, give patient instructions): Arthritis (ED) Additional Instructions: I believe you have carpal tunnel. Obtain the brace and wear it during the day. Take the Naprosyn as directed. Return to the ED for any new or worsening symptoms. Prescriptions: Naproxen [Naprosyn] 500 mg PO Q12HR #30 tab Is patient prescribed a controlled substance at d/c from ED?: No Referrals: Ant Araya DO [Primary Care Provider] - 1-2 days Jerrod Aviles DO [Doctor of Osteopathic Medicine] - 1-2 days Time of Disposition: 09:42
[2020-09-20 10:06] VITALS: BP 152/86; PULSE 81; RESP 16
== END 2020-09-20 10:06 | disposition home or self-care (01) ==
LOC: EC 08:24
DX: M25.531 Pain in right wrist (principal); E11.9 Type 2 diabetes mellitus without complications; E78.5 Hyperlipidemia, unspecified; I10 Essential (primary) hypertension; Z87.891 Personal history of nicotine dependence; Z85.038 Personal history of other malignant neoplasm of large intestine
CPT/HCPCS: 99283

== ENCOUNTER 2020-11-09 01:32 | Emergency (ER) | payer MEDICARE, OTHER ==
[2020-11-09 01:46] VITALS: BP 190/99; PULSE 95; RESP 18; TEMP 98.1
--- NOTE | 2020-11-09 02:19 | ED ---
Male Urogenital HPI - General Chief complaint: Urogenital Stated complaint: Blood in urine Source: patient, EMS, RN notes reviewed Mode of arrival: EMS Limitations: no limitations - History of Present Illness Initial comments: Patient is a 65-year-old male that presents to emergency by complaining of one episode of hematuria. He denied any dysuria frequency history of bladder cancer. He notes that he does have a history of kidney stones and his younger years but not any recently. She was in no apparent distress or pain while sitting up in bed in exam interview. He did note that he follows up with his urologist once a year but the one he uses she retired so he is seen in 1 sometime this month. Patient noted that he wanted to come in to get evaluated for low little bit of blood in his urine. He denied any chest pain short of breath headache nausea vomiting diarrhea constipation fever fatigue chills frequency dysuria history of bladder issues. - Related Data Home Medications Medication Instructions Recorded Confirmed Cholecalciferol (Vitamin D3) 2,000 unit PO HS 08/08/15 05/24/20 [Vitamin D3] Levothyroxine Sodium [Synthroid] 100 mcg PO DAILY 08/08/15 05/24/20 Tamsulosin [Flomax] 0.4 mg PO HS 08/08/15 05/24/20 metFORMIN HCL 1,000 mg PO BID 08/08/15 05/24/20 Atorvastatin [Lipitor] 10 mg PO MOWEFR 02/29/16 05/24/20 glipiZIDE XL [Glucotrol XL] 5 mg PO DAILY 01/06/17 05/24/20 Metoprolol Succinate (ER) [Toprol 25 mg PO HS 11/09/17 05/24/20 XL] lisinopriL 40 mg PO DAILY 02/18/19 05/24/20 Famotidine [Pepcid] 20 mg PO BID 08/24/19 05/24/20 amLODIPine [Norvasc] 5 mg PO DAILY 02/20/20 05/24/20 Acetaminophen [Tylenol] 1,000 mg PO Q4-6H PRN 05/24/20 05/24/20 Ibuprofen [Motrin Ib] 600 mg PO Q8H PRN 05/24/20 05/24/20 Previous Rx's Medication Instructions Recorded HYDROcodone/APAP 5-325MG [[place] 1 tab PO Q6HR PRN 3 Days #12 tab 05/24/20 5-325] Naproxen [Naprosyn] 500 mg PO Q12HR #30 tab 09/20/20 Allergies Allergy/AdvReac Type Severity Reaction Status Date / Time Sulfa (Sulfonamide AdvReac Nausea & Verified 09/20/20 08:30 Antibiotics) Vomiting Review of Systems ROS Statement: Those systems with pertinent positive or pertinent negative responses have been documented in the HPI. ROS Other: All systems not noted in ROS Statement are negative. Past Medical History Past Medical History: Cancer, Diabetes Mellitus, Hyperlipidemia, Hypertension, Prostate Disorder, Thyroid Disorder Additional Past Medical History / Comment(s): chronic back pain, colon CA, enlarged prostate, kidney stone History of Any Multi-Drug Resistant Organisms: None Reported Past Surgical History: Bowel Resection, Cholecystectomy Past Anesthesia/Blood Transfusion Reactions: No Reported Reaction Past Psychological History: No Psychological Hx Reported Smoking Status: Former smoker Past Alcohol Use History: None Reported Past Drug Use History: None Reported - Past Family History Mother Family Medical History: Cancer, COPD, Diabetes Mellitus Additional Family Medical History / Comment(s): lung cancer Sister(s) Family Medical History: Diabetes Mellitus General Exam Limitations: no limitations General appearance: alert, in no apparent distress Head exam: Present: atraumatic, normocephalic, normal inspection Eye exam: Present: normal appearance, PERRL, EOMI. Absent: scleral icterus, conjunctival injection, periorbital swelling Neck exam: Present: normal inspection. Absent: tenderness, meningismus, lymphadenopathy Respiratory exam: Present: normal lung sounds bilaterally. Absent: respiratory distress, wheezes, rales, rhonchi, stridor Cardiovascular Exam: Present: regular rate, normal rhythm, normal heart sounds. Absent: systolic murmur, diastolic murmur, rubs, gallop, clicks GI/Abdominal exam: Present: soft, normal bowel sounds. Absent: distended, tenderness, guarding, rebound, rigid Extremities exam: Present: normal inspection, full ROM, normal capillary refill. Absent: tenderness, pedal edema, joint swelling, calf tenderness Neurological exam: Present: alert, oriented X3 Psychiatric exam: Present: normal affect, normal mood Skin exam: Present: warm, dry, intact, normal color. Absent: rash Course Vital Signs 11/09/20 01:41 Temperature 98.1 F Pulse Rate 95 Respiratory 18 Rate Blood Pressure 190/99 O2 Sat by Pulse 99 Oximetry Medical Decision Making - Medical Decision Making 65-year-old male with one episode of hematuria presenting to the emergency room. CBC, CMP, urinalysis ordered. Labs unremarkable. Urinalysis shows no hematuria, red blood cells, white blood cells. No medication use at this time due to patient having no pain or discomfort a nd/or frequency/dysuria. Case discussed with Dr. Melo, patient can discharge home with follow-up to primary care urologist as planned. - Lab Data Result diagrams: 11/09/20 01:54 11/09/20 01:54 Lab Results 11/09/20 11/09/20 11/09/20 Range/Units 01:54 01:54 01:54 WBC 5.7 (3.8-10.6) k/uL RBC 4.05 L (4.30-5.90) m/uL Hgb 14.1 (13.0-17.5) gm/dL Hct 38.8 L (39.0-53.0) % MCV 95.7 (80.0-100.0) fL MCH 34.9 (25.0-35.0) pg MCHC 36.4 (31.0-37.0) g/dL RDW 12.7 (11.5-15.5) % Plt Count 227 (150-450) k/uL MPV 9.0 Neutrophils % 56 % Lymphocytes % 25 % Monocytes % 9 % Eosinophils % 7 % Basophils % 2 % Neutrophils # 3.2 (1.3-7.7) k/uL Lymphocytes # 1.5 (1.0-4.8) k/uL Monocytes # 0.5 (0-1.0) k/uL Eosinophils # 0.4 (0-0.7) k/uL Basophils # 0.1 (0-0.2) k/uL Hyperchromasia Slight Sodium 137 (137-145) mmol/L Potassium 3.5 (3.5-5.1) mmol/L Chloride 101 (98-107) mmol/L Carbon Dioxide 28 (22-30) mmol/L Anion Gap 8 mmol/L BUN 10 (9-20) mg/dL Creatinine 0.78 (0.66-1.25) mg/dL Est GFR (CKD-EPI)AfAm >90 (>60 ml/min/1.73 sqM) Est GFR (CKD-EPI)NonAf >90 (>60 ml/min/1.73 sqM) Glucose 137 H (74-99) mg/dL Calcium 9.1 (8.4-10.2) mg/dL Total Bilirubin 0.8 (0.2-1.3) mg/dL AST 22 (17-59) U/L ALT 14 (4-49) U/L Alkaline Phosphatase 119 (38-126) U/L Total Protein 6.4 (6.3-8.2) g/dL Albumin 3.9 (3.5-5.0) g/dL Urine Color Light Yellow Urine Appearance Clear (Clear) Urine pH 5.5 (5.0-8.0) Ur Specific [place] 1.011 (1.001-1.035) Urine Protein Trace H (Negative) Urine Glucose (UA) Negative (Negative) Urine Ketones Negative (Negative) Urine Blood Negative (Negative) Urine Nitrite Negative (Negative) Urine Bilirubin Negative (Negative) Urine Urobilinogen <2.0 (<2.0) mg/dL Ur Leukocyte Esterase Negative (Negative) Disposition Clinical Impression: Hematuria Disposition: HOME SELF-CARE Condition: Stable Instructions (If sedation given, give patient instructions): Hematuria (ED) Additional Instructions: Please return to the Emergency Department if symptoms worsen or any other concerns. No hematuria on lab testing, follow-up with urologist as planned. Follow-up with primary care in 3-5 days. Increase oral fluids to remain hydrated. Is patient prescribed a controlled substance at d/c from ED?: No Referrals: Ant Araya DO [Primary Care Provider] - 1-2 days Time of Disposition: 02:48
[2020-11-09 02:24] LABS: ALT 14 U/L (4-49); AST 22 U/L (17-59); African American GFR (CKD) >90 (>60 ml/min/1.73 sqM); Albumin 3.9 g/dL (3.5-5.0); Alkaline Phosphatase 119 U/L (38-126); Anion Gap 8 mmol/L; Blood Urea Nitrogen 10 mg/dL (9-20); Calcium 9.1 mg/dL (8.4-10.2); Carbon Dioxide 28 mmol/L (22-30); Chloride 101 mmol/L (98-107); Glucose 137 mg/dL (74-99); Non-African American GFR(CKD) >90 (>60 ml/min/1.73 sqM); Potassium 3.5 mmol/L (3.5-5.1); Sodium 137 mmol/L (137-145); Total Bilirubin 0.8 mg/dL (0.2-1.3); Total Protein 6.4 g/dL (6.3-8.2)
[2020-11-09 02:27] LABS: Appearance,Urine Clear (Clear); Bilirubin,Urine Negative (Negative); Blood,Urine Negative (Negative); Color,Urine Light Yellow; Glucose,Urine (UA) Negative (Negative); Ketones,Urine Negative (Negative); Leukocyte Esterase,Urine Negative (Negative); Nitrite,Urine Negative (Negative); PH, Urine 5.5 (5.0-8.0); Protein,Urine Trace (Negative); Specific Gravity,Urine 1.011 (1.001-1.035); Urobilinogen,Urine <2.0 mg/dL (<2.0)
[2020-11-09 02:31] LABS: Basophils # (A) 0.1 k/uL (0-0.2); Basophils % (A) 2 %; Eosinophils # (A) 0.4 k/uL (0-0.7); Eosinophils % (A) 7 %; HCT 38.8 % (39.0-53.0); HGB 14.1 gm/dL (13.0-17.5); Hyperchromasia Slight; Lymphocytes # (A) 1.5 k/uL (1.0-4.8); Lymphocytes % (A) 25 %; MCH 34.9 pg (25.0-35.0); MCHC 36.4 g/dL (31.0-37.0); MCV 95.7 fL (80.0-100.0); Monocytes # (A) 0.5 k/uL (0-1.0); Monocytes % (A) 9 %; Neutrophils # (A) 3.2 k/uL (1.3-7.7); Neutrophils % (A) 56 %; Platelet Count 227 k/uL (150-450); RBC 4.05 m/uL (4.30-5.90); RDW 12.7 % (11.5-15.5); WBC 5.7 k/uL (3.8-10.6)
== END 2020-11-09 02:55 | disposition home or self-care (01) ==
LOC: EC 01:32
DX: R31.9 Hematuria, unspecified (principal); E11.9 Type 2 diabetes mellitus without complications; E78.5 Hyperlipidemia, unspecified; I10 Essential (primary) hypertension; Z87.891 Personal history of nicotine dependence; Z87.442 Personal history of urinary calculi; Z79.84 Long term (current) use of oral hypoglycemic drugs
CPT/HCPCS: 36415; 80053; 81003; 85025; 99283

== ENCOUNTER → 2022-02-15 | Outpatient (CLI) | payer MEDICARE, OTHER ==
--- NOTE | 2022-02-17 20:39 | CT ---
EXAMINATION TYPE: CT abdomen wo con CT DLP: 898 mGycm, Automated exposure control for dose reduction was used. DATE OF EXAM: 02/15/2022 12:36 PM COMPARISON: THIS EXAM WAS READ DURING PACS DOWNTIME, NO PRIORS AVAILABLE. CLINICAL INDICATION:Male, 66 years old with history of N28.1 renal cyst; TECHNIQUE: Axial CT of the abdomen. Sagittal and coronal reformats were [facility] [place]. Contrast used: None Oral contrast used: None FINDINGS: LOWER CHEST: Mild atherosclerosis of the arterial vasculature. ABDOMEN LIVER: Hepatic cysts. GALLBLADDER AND BILE DUCTS: The gallbladder is surgically absent. PANCREAS: Unremarkable. SPLEEN: Unremarkable. ADRENAL GLANDS: Left adrenal adenoma measuring 13 mm. KIDNEYS AND URETERS: r the right kidney demonstrates nonobstructing calculi measuring up to 4 mm. Add itional renal cysts are present. The left kidney demonstrates large renal pelvis calculus measuring u p to 16 mm. Additional smaller left renal calculi which are nonobstructing as do 4 mm. Mild dilation of the left renal calyces. STOMACH AND BOWEL: No evidence of bowel obstruction. Appendix is normal. PERITONEUM: No evidence of pneumoperitoneum or free fluid. VASCULATURE: Mild atherosclerotic calcifications are present throughout the abdominal aorta and its b ranches. No evidence of aortic aneurysm. MUSCULOSKELETAL: No acute osseous abnormalities LYMPH NODES: No gross evidence for lymphadenopathy. SOFT TISSUE/ABDOMINAL WALL: Fat filled umbilical hernia. IMPRESSION: 1. Left renal pelvis calculus measuring 16 mm with dilation of the left renal calyces suggesting apoorva e degree of obstruction of this renal pelvis calculus. Urologic consultation recommended. 2. Additional left and right nonobstructing renal calculi.
== END | disposition home or self-care (01) ==
LOC: RADCTMAIN 12:15
PROVIDERS: ATTEND Urology
DX: N20.0 Calculus of kidney (principal)
CPT/HCPCS: 74150

== ENCOUNTER → 2022-03-21 | Outpatient (CLI) | payer MEDICARE, OTHER ==
[2022-03-21 18:55] LABS: Basophils # (A) 0.08 X 10*3/uL (0.00-0.10); Basophils % (A) 1.3 %; Eosinophils # (A) 0.16 X 10*3/uL (0.04-0.35); Eosinophils % (A) 2.5 %; HCT 39.1 % (39.6-50.0); HGB 14.4 g/dL (13.0-17.0); Immature Grans, Automated 0.3 %; Lymphocytes # (A) 0.96 X 10*3/uL (0.90-5.00); Lymphocytes % (A) 15.2 %; MCH 36.9 pg (27.0-32.0); MCHC 36.8 g/dL (32.0-37.0); MCV 100.3 fL (80.0-97.0); Mean Platelet Volume 13.6 fL (9.5-12.2); Monocytes # (A) 0.42 X 10*3/uL (0.20-1.00); Monocytes % (A) 6.6 %; NRBC Per 100 WBC 0 /100 WBCS (0.0-0.0); Neutrophils # (A) 4.69 X 10*3/uL (1.80-7.70); Neutrophils % (A) 74.1 %; Platelet Count 222 X 10*3/uL (140-440); RDW 13.1 % (11.5-14.5); WBC 6.33 X 10*3/uL (4.50-10.00)
[2022-03-21 19:16] LABS: African American GFR (CKD) 103.5 (60.0-200.0); Anion Gap 13.1 mmol/L (10.00-18.00); BUN/Creat Ratio 11.98 Ratio (12.00-20.00); Blood Urea Nitrogen 10.6 mg/dL (9.0-27.0); Carbon Dioxide 22.1 mmol/L (20.0-27.5); Non-African American GFR(CKD) 89.3 (60.0-200.0); Potassium 3.9 mmol/L (3.5-5.5)
== END | disposition home or self-care (01) ==
LOC: LABWHC1 10:49
PROVIDERS: ATTEND Urology
DX: Z01.812 Encounter for preprocedural laboratory examination (principal); N20.0 Calculus of kidney
CPT/HCPCS: 36415; 80048; 85025

== ENCOUNTER → 2022-03-30 | Day surgery (SDC) | payer MEDICARE, OTHER ==
[2022-03-24 14:38] VITALS: BMI 37.3
--- NOTE | 2022-03-29 21:33 | P.GSHP ---
History of Present Illness H&P Date: 03/29/22 Chief Complaint: Left hydronephrosis The patient is a 66-year-old white male who underwent resection of superficial bladder cancer in 2012. He has a known left renal hyperdense cyst. Recent CT scan shows that cyst not to be suspicious in appearance. However, the computed tomography scan showed left renal calculi measuring up to 16 mm, with mild calyceal dilation. He was offered the options of percutaneous nephrolithotomy (PCNL) versus ureteroscopy with laser lithotripsy, the latter of which would likely require 2 procedures. The pros and cons of each were reviewed, and he has elected to undergo ureteroscopy. He comes for this reason. - Cardiovascular Cardiovascular: Reports high blood pressure - Genitourinary (Male) Genitourinary: Reports kidney stones, Denies dysuria, Denies flank pain, Denies hematuria Past Medical History Past Medical History: Cancer, Diabetes Mellitus, Hyperlipidemia, Hypertension, Prostate Disorder, Thyroid Disorder Additional Past Medical History / Comment(s): Chronic back pain, hx colon cancer 6 yrs ago, enlarged prostate, kidney stone. History of Any Multi-Drug Resistant Organisms: None Reported Past Surgical History: Bowel Resection, Cholecystectomy Past Anesthesia/Blood Transfusion Reactions: No Reported Reaction Past Psychological History: No Psychological Hx Reported Smoking Status: Former smoker Past Alcohol Use History: None Reported Additional Past Alcohol Use History / Comment(s): Smoked at age 18. Past Drug Use History: None Reported - Past Family History Mother Family Medical History: Cancer, COPD, Diabetes Mellitus Additional Family Medical History / Comment(s): Lung cancer. Sister(s) Family Medical History: Diabetes Mellitus Medications and Allergies Home Medications Medication Instructions Recorded Confirmed Type Cholecalciferol (Vitamin D3) 2,000 unit PO HS 08/08/15 03/24/22 History [Vitamin D3] Levothyroxine Sodium [Synthroid] 100 mcg PO QAM 08/08/15 03/24/22 History Tamsulosin [Flomax] 0.4 mg PO HS 08/08/15 03/24/22 History metFORMIN HCL 1,000 mg PO BID 08/08/15 03/24/22 History Atorvastatin [Lipitor] 10 mg PO MOWEFR 02/29/16 03/24/22 History glipiZIDE XL [Glucotrol XL] 5 mg PO QAM 01/06/17 03/24/22 History Metoprolol Succinate (ER) [Toprol 25 mg PO HS 11/09/17 03/24/22 History XL] lisinopriL 40 mg PO QAM 02/18/19 03/24/22 History Famotidine [Pepcid] 20 mg PO BID 08/24/19 03/24/22 History amLODIPine [Norvasc] 5 mg PO QAM 02/20/20 03/24/22 History Allergies Allergy/AdvReac Type Severity Reaction Status Date / Time Sulfa (Sulfonamide AdvReac Nausea & Verified 03/24/22 14:21 Antibiotics) Vomiting Surgical - Exam - General well developed, well nourished, no distress - Neck no masses, trachea midline - Respiratory normal respiratory effort - Abdomen Abdomen: soft, non tender, no guarding, no rigid, no rebound - Genitourinary normal penis with no external lesions, testicles non-tender - Rectum Rectum: normal sphincter tone, no masses - Psychiatric oriented to time, oriented to person, oriented to place, speech is normal, memory intact Results - Imaging CT scan - abdomen: report reviewed, image reviewed Assessment and Plan (1) Calculus of kidney Status: Acute Code(s): N20.0 - CALCULUS OF KIDNEY SNOMED Code(s): 38124044 Plan: Cystoscopy, left ureteroscopy with Holmium laser lithotripsy and possible stone basketing, left ureteral stent insertion. The procedure has been reviewed in detail with the patient. He has been made aware of potential risks, which inclu de anesthesia, bleeding, infection, and ureteral injury. He is aware that a secondary procedure will almost certainly be required, and even that may fail to render him completely stone free.
[~2022-03-30] MED LIST changes: +DEXAMETHASONE SOD PHOSPHATE 4 MG/ML 1 ML VIAL IV ONE; +GLYCOPYRROLATE 0.2 MG/ML 2 ML VIAL ONE; +LACTATED RINGERS 1,000 ML IV ONE; +LIDOCAINE 1% (10MG/ML) FOR IV START INTRADERMA PRN; +LIDOCAINE 2% INJ 20 MG/ML (2 ML VIAL) ONE; +MIDAZOLAM 2 MG/2 ML VIAL IV PRN; -ONDANSETRON 4 MG/2 ML VIAL IVP PRN; +PROPOFOL 10 MG/ML 20 ML VIAL IV ONE; +ePHEDrine 50 MG/ML 1 ML VIAL ONE; +fentaNYL (PF) 50 MCG/ML 2 ML AMP ONE
--- NOTE | 2022-03-30 06:16 | XR ---
EXAMINATION TYPE: XR KUB DATE OF EXAM: 03/30/2022 6:11 AM CLINICAL HISTORY: Left-sided renal calculus TECHNIQUE: Two supine KUB images of the abdomen are obtained. COMPARISON: CT abdomen February 15, 2022 FINDINGS: Dominant 2.1 cm calculus centrally left kidney redemonstrated. There are approximate 4 melly tional scattered smaller left renal calculi and 4 scattered small right renal calculi that are redemo nstrated. Left-sided phleboliths are noted. Cholecystectomy clips are redemonstrated. Overall nonobstructive bowel gas pattern. Visualized osseou s structures are intact. IMPRESSION: As above.
[2022-03-30 07:07] LABS: Glucose,Whole Blood 147 mg/dL (70-110)
[2022-03-30] MEDS: ONDANSETRON 4 MG/2 ML VIAL IVP ONE ×2 (07:08→11:00)
[2022-03-30 10:13] VITALS: TEMP 97
--- NOTE | 2022-03-30 10:26 | FL ---
EXAMINATION TYPE: FL guidance operating room DATE OF EXAM: 03/30/2022 CLINICAL HISTORY: Left-sided kidney stone TECHNIQUE: Fluoroscopy. COMPARISON: X-ray earlier today. FINDINGS: Fluoroscopic guidance was provided during left kidney stone treatment procedure performed by Dr. Corea. A total of 11 seconds of fluoroscopic time was utilized during the procedure and 10 s pot images was acquired. Intraoperative images show advancement of guidewire and subsequent catheter for kidney stone fragmentation and retrieval and eventual placement of a ureter stent. IMPRESSION: As Above.
[2022-03-30] MEDS: HYDROmorphone 0.5 MG/0.5 ML SYRINGE IVP PRN ×2 (10:39→10:59)
[2022-03-30 12:45] LABS: Glucose,Whole Blood 197 mg/dL (70-110)
[2022-03-30 12:49] VITALS: BP 156/89; PULSE 92; RESP 18
--- NOTE | 2022-03-30 13:04 | P.OP ---
Date of Procedure: 03/30/22 Preoperative Diagnosis: Left Renal Calculus Postoperative Diagnosis: Same Procedure(s) Performed: Cystoscopy, left ureteroscopy with Holmium laser lithotripsy and stone basketing, left ureteral stent insertion Anesthesia: JEANA Surgeon: Darin Corea Estimated Blood Loss (ml): 10 IV fluids (ml): 1,000 Condition: stable Disposition: PACU Indications for Procedure: The patient is a 66-year-old white male who underwent resection of superficial bladder cancer in 2012. He has a known left renal hyperdense cyst. Recent CT scan shows that cyst not to be suspicious in appearance. However, the computed tomography scan showed left renal calculi measuring up to 16 mm, with mild rudy yceal dilation. He was offered the options of percutaneous nephrolithotomy (PCNL) versus ureteroscopy with laser lithotripsy, the latter of which would likely require 2 procedures. The pros and cons of each were reviewed, and he has elected to undergo ureteroscopy. He comes for this reason. Operative Findings: Left renal pelvic calculus, fragmented and almost completely removed. Description of Procedure: The patient was taken to the operating room and placed in the dorsolithotomy position, with legs supported in Joseph stirrups. The external genitalia was prepped and draped sterilely. The 30 lens was used to introduce the 21French Srivastava cystoscopic sheath through the urethra and into the bladder under direct vision. The prostatic urethra showed evidence of mild lateral lobe enlargement. The bladder was examined in its entirety. Both ureteral orifices were normal anatomic location and configuration, and clear urine effluxed from both. No tumors or foreign bodies were seen. A 0.038 inch Glidewire was passed through the cystoscope. The left ureteral orifice was cannulated, and the Glidewire was advanced up to the renal pelvis. The cystoscope was removed, and an 11/13- Faroese ureteral access catheter was passed over the wire, up to the proximal ureter. The flexible ureteroscope was then passed through the ureteral access catheter sheath, up to the left renal pelvis. The calculus was readily seen. The 272 micron Holmium laser probe was passed through the ureteroscope, and lithotripsy was performed utilizing a dusting mode. However, the calculus began to fragment, and these multiple fragments were removed using a 1.5-Faroese nitinol basket. Virtually all calculus fragments were removed, and what was vis ible at the end of the procedure was treated within an upper pole calyx utilizing a popcorn mode. Upon completion, no calculi were seen on fluoroscopy. Pullout ureteroscopy showed no evidence of ureteral injury. The Glidewire was passed through the ureteral access catheter sheath, which was removed. The Glidewire was backloaded into the cystoscope, which was passed into the bladder. A 24 cm, 6-Faroese double-J ureteral stent was placed over the wire. Proper stent positioning was verified fluoroscopically and endoscopically. The bladder was emptied and the cystoscope removed. The patient tolerated the procedure well and was taken to the recovery room in stable condition. [facility] [place] Report: Procedure Acuity: Elective Stone Size and Location: 2 cm, left renal pelvis Ureteral Dilation: No Ureteral Access Sheath Used: Yes Stone Sent for Analysis: Yes All Stones/Fragments Were Removed with a Basket: No Complications: No Preoperative Antibiotics Given: Yes Stent Placed: Yes If Stent Placed, Was String Left Attached: No If Stent Placed, When is it to be Removed: 2-3 weeks Discharge Medications: Toradol
== END | disposition home or self-care (01) ==
LOC: OR 05:35
PROVIDERS: ATTEND Urology
DX: N20.0 Calculus of kidney (principal); E11.9 Type 2 diabetes mellitus without complications; E78.5 Hyperlipidemia, unspecified; I10 Essential (primary) hypertension; N42.9 Disorder of prostate, unspecified; E07.9 Disorder of thyroid, unspecified; M54.9 Dorsalgia, unspecified; G89.29 Other chronic pain; N40.0 Benign prostatic hyperplasia without lower urinary tract symptoms; Z85.038 Personal history of other malignant neoplasm of large intestine; Z98.84 Bariatric surgery status; Z90.49 Acquired absence of other specified parts of digestive tract; Z87.891 Personal history of nicotine dependence; Z82.5 Family history of asthma and other chronic lower respiratory diseases; Z83.3 Family history of diabetes mellitus; Z80.1 Family history of malignant neoplasm of trachea, bronchus and lung; Z79.84 Long term (current) use of oral hypoglycemic drugs; Z79.890 Hormone replacement therapy; Z79.899 Other long term (current) drug therapy; Z88.1 Allergy status to other antibiotic agents
CPT/HCPCS: 82365; 74018; 52356; C1769; J0690; J2405; J3010; J2704; J1170; J2001

== ENCOUNTER 2022-04-27 08:22 | Day surgery (SDC) | payer MEDICARE, OTHER ==
--- NOTE | 2022-04-26 06:33 | P.GSHP ---
History of Present Illness H&P Date: 04/26/22 Chief Complaint: Left renal calculi The patient is a 66-year-old white male who underwent resection of superficial bladder cancer in 2012. He has a known left renal hyperdense cyst. Recent CT scan shows that cyst not to be suspicious in appearance. However, the CT scan showed left renal calculi measuring up to 16 mm, with mild calyceal dilation. He was offered the options of percutaneous nephrolithotomy (PCNL) versus ureteroscopy with laser lithotripsy, the latter of which would likely require 2 procedures. The pros and cons of each were reviewed, and he elected to undergo ureteroscopy. He underwent his initial procedure on March 30, and the majority of the calculi were removed. He now comes for removal of his left ureteral stent and a residual calculi. - Cardiovascular Cardiovascular: Reports high blood pressure - Genitourinary (Female) Genitourinary: Reports kidney stones, Denies dysuria, Denies hematuria Past Medical History Past Medical History: Cancer, Diabetes Mellitus, Hyperlipidemia, Hypertension, Prostate Disorder, Thyroid Disorder Additional Past Medical History / Comment(s): chronic back pain, colon CA, enlarged prostate, kidney stone History of Any Multi-Drug Resistant Organisms: None Reported Past Surgical History: Bowel Resection, Cholecystectomy Additional Past Surgical History / Comment(s): LEFT LITHOTRIPSY IN MAR. Past Anesthesia/Blood Transfusion Reactions: No Reported Reaction Past Psychological History: No Psychological Hx Reported Smoking Status: Former smoker Past Alcohol Use History: None Reported Additional Past Alcohol Use History / Comment(s): smoked at age 18 Past Drug Use History: None Reported - Past Family History Mother Family Medical History: Cancer, COPD, Diabetes Mellitus, GERD/Reflux Additional Family Medical History / Comment(s): lung cancer Sister(s) Family Medical History: Diabetes Mellitus Medications and Allergies Home Medications Medication Instructions Recorded Confirmed Type Cholecalciferol (Vitamin D3) 2,000 unit PO HS 08/08/15 04/25/22 History [Vitamin D3] Levothyroxine Sodium [Synthroid] 100 mcg PO QAM 08/08/15 04/25/22 History Tamsulosin [Flomax] 0.4 mg PO HS 08/08/15 04/25/22 History metFORMIN HCL 1,000 mg PO BID 08/08/15 04/25/22 History Atorvastatin [Lipitor] 10 mg PO MOWEFR 02/29/16 04/25/22 History glipiZIDE XL [Glucotrol XL] 5 mg PO QAM 01/06/17 04/25/22 History Metoprolol Succinate (ER) [Toprol 25 mg PO HS 11/09/17 04/25/22 History XL] lisinopriL 40 mg PO QAM 02/18/19 04/25/22 History Famotidine [Pepcid] 20 mg PO BID 08/24/19 04/25/22 History amLODIPine [Norvasc] 5 mg PO QAM 02/20/20 04/25/22 History Allergies Allergy/AdvReac Type Severity Reaction Status Date / Time Sulfa (Sulfonamide AdvReac Nausea & Verified 04/25/22 12:31 Antibiotics) Vomiting Surgical - Exam - General well developed, well nourished, no distress - Respiratory normal respiratory effort - Abdomen Abdomen: soft, non tender, no guarding, no rigid, no rebound - Psychiatric oriented to time, oriented to person, oriented to place, speech is normal, memory intact Assessment and Plan (1) Calculus of kidney Status: Acute Code(s): N20.0 - CALCULUS OF KIDNEY SNOMED Code(s): 55966820 Plan: Cystoscopy, left ureteral stent removal, left ureteroscopy with Holmium laser lithotripsy and possible stone basketing to remove any residual calculi. The procedure has been reviewed in detail with the patient. He has been made aware of potential risks, which include anesthesia, bleeding, infection, and ureteral injury.
[~2022-04-27 08:22] MED LIST changes: -GLYCOPYRROLATE 0.2 MG/ML 2 ML VIAL ONE; +HYDROmorphone 0.5 MG/0.5 ML SYRINGE IVP PRN; -LACTATED RINGERS 1,000 ML IV ONE; -LIDOCAINE 1% (10MG/ML) FOR IV START INTRADERMA PRN; -LIDOCAINE 2% INJ 20 MG/ML (2 ML VIAL) ONE; -MIDAZOLAM 2 MG/2 ML VIAL IV PRN; +ONDANSETRON 4 MG/2 ML VIAL IVP ONE; -PROPOFOL 10 MG/ML 20 ML VIAL IV ONE; -ePHEDrine 50 MG/ML 1 ML VIAL ONE; -fentaNYL (PF) 50 MCG/ML 2 ML AMP ONE
--- NOTE | 2022-04-27 09:41 | XR ---
EXAMINATION TYPE: XR KUB DATE OF EXAM: 04/27/2022 Comparison: 03/30/2022, 04/27/2022 Clinical History: 66-year-old male Left Renal Calculus N20.0 Findings: A left ureteral stent is in place. Left-sided pelvic phleboliths appear similar. Underlying bilateral nephrolithiasis noted. Small calculi measuring up to 4 mm on the right and up to 5 mm on the left. C holecystectomy clips. Nonobstructive bowel gas pattern. No significant stool burden. There may be a couple subtle calculi measuring up to 6 mm along the proximal third stent at the L4 le dexter. The previous larger 2.0 cm left renal stone is no longer seen. Impression: 1. Bilateral nephrolithiasis. 2. The previous larger 2.1 cm left renal stone is no longer seen. A left ureteral stent has been plac ed in the interval. 3. A couple possible small calculi along the proximal third portion of the stent measuring up to 6 mm
[2022-04-27 10:06] LABS: Glucose,Whole Blood 140 mg/dL (70-110)
[2022-04-27] MEDS ORDERED: PROPOFOL 10 MG/ML 20 ML VIAL IV ONE (11:13)
[2022-04-27] MEDS ORDERED: ePHEDrine 50 MG/ML 1 ML VIAL ONE (11:13)
[2022-04-27] MEDS ORDERED: SUCCINYLCHOLINE CHLORIDE 200 MG/10 ML VIAL IV ONE (11:13)
[2022-04-27] MEDS ORDERED: MIDAZOLAM 2 MG/2 ML VIAL ONE (11:13)
[2022-04-27] MEDS ORDERED: fentaNYL (PF) 50 MCG/ML 2 ML AMP ONE (11:13)
[2022-04-27] MEDS ORDERED: PHENYLEPHRINE-0.9% NACL SYG 1,000 MCG/10 ML SYRINGE ONE (11:13)
[2022-04-27] MEDS ORDERED: KETOROLAC 15 MG/ML 1 ML VIAL ONE (11:13)
[2022-04-27] MEDS ORDERED: LIDOCAINE 2% INJ 20 MG/ML (2 ML VIAL) ONE (11:13)
[2022-04-27 13:00] VITALS: TEMP 97.8
[2022-04-27 13:06] LABS: Glucose,Whole Blood 155 mg/dL (70-110)
--- NOTE | 2022-04-27 13:13 | P.OP ---
Date of Procedure: 04/27/22 Preoperative Diagnosis: Left ureteral calculi, left renal calculi Postoperative Diagnosis: Same Procedure(s) Performed: Cystoscopy, left ureteroscopy with stone basketing, left ureteral stent change Anesthesia: JENNIFERA Surgeon: Darin Corea Estimated Blood Loss (ml): 5 IV fluids (ml): 800 Condition: stable Disposition: PACU Indications for Procedure: The patient is a 66-year-old white male who underwent resection of superficial bladder cancer in 2012. He has a known left renal hyperdense cyst. Recent CT scan shows that cyst not to be suspicious in appearance. However, the CT scan showed left renal calculi measuring up to 16 mm, with mild calyceal dilation. He was offered the options of percutaneous nephrolithotomy (PCNL) versus ureteroscopy with laser lithotripsy, the latter of which would likely require 2 procedures. The pros and cons of each were reviewed, and he elected to undergo ureteroscopy. He underwent his initial procedure on March 30, and the majority of the calculi were removed. He now comes for removal of his left ureteral stent and a residual calculi. Operative Findings: Left proximal ureteral calculi, left renal calculi, all successfully basketed. Description of Procedure: The patient was taken to the operating room and placed in the dorsolithotomy position, with legs supported in Joseph stirrups. The external genitalia was prepped and draped sterilely. The 30 lens was used to introduce the 21French Srivastava cystoscopic sheath through the urethra and into the bladder under direct vision. The prostatic urethra showed evidence of mild lateral lobe enlargement. The bladder was examined in its entirety. The distal end of the left ureteral stent was grasped with grasping forceps and removed along with the cystoscope. The Srivastava semirigid ureteroscope was passed into the bladder under direct vision. The left ureteral orifice was cannulated, and the ureteroscope was slowly advanced under direct vision. Several calculi were seen and were removed using a 1.9-Portuguese nitinol basket. Once it was confirmed that all ureteral calculi been removed, a 0.038 inch Glidewire was passed through the ureteroscope and up to the left renal pelvis. An 11/13-Portuguese ureteral access catheter was passed over the wire, up to the proximal ureter. The Srivastava Manyeta flexible ureteroscope was then passed through the ureteral access catheter sheath, up to the left renal pelvis. Multiple calculi were seen within an upper pole calyx and a lower pole calyx. No calculi were seen elsewhere within the intrarenal collecting system. The nitinol basket was used to remove all of the calculus fragments. The only remaining calculi were too small to successfully basket. Once this was completed, pullout ureteroscopy was performed and there was no evidence of ureteral trauma. The Glidewire was passed up to the left kidney, and backloaded into the cystoscope, which was passed into the bladder. A 24 cm, 4.8 Portuguese double-J ureteral stent was placed over the wire. Proper stent positioning was verified fluoroscopically and endoscopically. The bladder was emptied and the cystoscope removed. The patient tolerated the procedure well and was taken to the recovery room in stable condition.
[2022-04-27 14:11] VITALS: RESP 15
[2022-04-27 14:25] VITALS: BP 161/87; PULSE 92
--- NOTE | 2022-04-27 15:30 | FL ---
Intraoperative/procedural fluoroscopic services were provided. Total fluoroscopy time is 16 seconds w ith a total of 2 submitted images to PACS. Please see the operative/procedural note for further detai ls.
== END 2022-04-27 14:42 | disposition home or self-care (01) ==
LOC: OR 08:22
PROVIDERS: ATTEND Urology
DX: N20.2 Calculus of kidney with calculus of ureter (principal); I10 Essential (primary) hypertension; Z88.2 Allergy status to sulfonamides; E11.9 Type 2 diabetes mellitus without complications; E07.9 Disorder of thyroid, unspecified; Z90.49 Acquired absence of other specified parts of digestive tract; Z87.891 Personal history of nicotine dependence; Z83.79 Family history of other diseases of the digestive system; Z80.1 Family history of malignant neoplasm of trachea, bronchus and lung; Z83.3 Family history of diabetes mellitus; Z79.84 Long term (current) use of oral hypoglycemic drugs; Z79.899 Other long term (current) drug therapy; E78.5 Hyperlipidemia, unspecified
CPT/HCPCS: 82365; 74018; 52352; 52332; C2625; C1769; J2250; J0330; J1100; J0690; J2405; J3010; J1885; J2370; J2704; J2001

== ENCOUNTER → 2022-06-19 | Outpatient (CLI) | payer MEDICARE, OTHER ==
--- NOTE | 2022-06-19 10:08 | US ---
EXAMINATION TYPE: US kidneys/renal and bladder DATE OF EXAM: 06/19/2022 COMPARISON: CT abdomen February 15, 2022 CLINICAL HISTORY: N13.2. H/O renal stones, pt states left flank pain EXAM MEASUREMENTS: Right Kidney: 12.0 x 5.1 x 4.8 cm Left Kidney: 11.7 x 6.3 x 6.4 cm Right Kidney: Multicystic with largest cyst lateral= 2.6 x 2.0 x 2.3 cm/ Multiple renal calculi scatt ered throughout kidney approx 4mm in size, mildly dilated renal pelvis= 1.3 cm Left Kidney: Multiple renal calculi scattered throughout kidney approx 4mm in size, mildly dilated re nal pelvis= 1.1 cm Bladder: wnl Bilateral Jets seen: No A few scattered thin-walled cysts of varying size and shape throughout the right kidney are redemonst rated. Bilateral nephrolithiasis redemonstrated. Central prominence likely corresponds to parapelvic cyst on recent CT Bladder not greatly distended. Mild left-sided pyelocaliectasis is felt still prese nt on current study IMPRESSION: Bilateral nephrolithiasis redemonstrated. Possible mild left-sided hydronephrosis is less prominent than prior exam. No definitive right-sided hydronephrosis currently.
== END | disposition home or self-care (01) ==
LOC: RADUSWWP 08:54
PROVIDERS: ATTEND Urology
DX: N13.2 Hydronephrosis with renal and ureteral calculous obstruction (principal)
CPT/HCPCS: 76770

== ENCOUNTER → 2022-07-04 | Outpatient (CLI) | payer MEDICARE, OTHER ==
--- NOTE | 2022-07-04 15:20 | US ---
EXAMINATION TYPE: US venous doppler duplex LE LT DATE OF EXAM: 07/04/2022 2:51 PM COMPARISON: NONE CLINICAL HISTORY: 66-year-old male M79.605. Left lower leg pain SIDE PERFORMED: Left TECHNIQUE: The lower extremity deep venous system is examined utilizing real time linear array sonog tima with graded compression, doppler sonography and color-flow sonography. FINDINGS: VESSELS IMAGED: Common Femoral Vein Deep Femoral Vein Greater Saphenous Vein * Femoral Vein Popliteal Vein Small Saphenous Vein * Proximal Calf Veins (* superficial vessels) Left Leg: Negative for DVT IMPRESSION: No evidence for DVT within the left lower extremity imaged from the groin to the upper calf.
== END | disposition home or self-care (01) ==
LOC: RADUSWWP 14:25
PROVIDERS: ATTEND Family Medicine
DX: M79.605 Pain in left leg (principal)

== ENCOUNTER → 2023-02-23 | Outpatient (CLI) | payer MEDICARE, OTHER ==
--- NOTE | 2023-02-23 09:20 | US ---
EXAMINATION TYPE: US kidneys/renal and bladder DATE OF EXAM: 02/23/2023 COMPARISON: CLINICAL INDICATION: Male, 67 years old with history of N20.0 CALCULUS OF KIDNEY; Follow up. Hx baldemar l stones and renal cysts. n Pt voided before exam. EXAM MEASUREMENTS: Right Kidney: 12.0 x 5.7 x 5.8 cm Left Kidney: 12.6 x 5.0 x 5.6 cm Right Kidney: Multiple echogenic foci seen with largest = 0.9 cm and multiple cysts seen with largest = 1.8 x 1.8 x 2.1 cm. Left Kidney: Multiple echogenic foci seen with largest = 0.6 cm. Possible mild hydronephrosis vs dil ated renal pelvis. Bladder: mildly distended, anechoic Bilateral Jets not seen There is no evidence for hydronephrosis at this point in time. No solid masses are identified. The urinary bladder is anechoic. Bilateral ureteral jets are seen. IMPRESSION: 1. Nonobstructing nephrolithiasis. 2. Mild left-sided hydronephrosis difficult to exclude. 3. Simple cysts right kidney.
--- NOTE | 2023-02-23 09:31 | XR ---
EXAMINATION TYPE: XR KUB DATE OF EXAM: 02/23/2023 HISTORY: Pain Comparison: 04/27/2022 Single KUB is submitted for interpretation. Findings: Right renal calculi: None Visualized. Right ureteral calculi: None Visualized. Left renal calculi: 5.3 mm calculus lower pole left kidney. No additional calculi seen. Left ureteral calculi: None Visualized. Pelvic calcifications: Pelvic phleboliths redemonstrated. Bowel gas pattern is unremarkable. No free air. No mass effects. IMPRESSION: 1. 5.3 mm calculus lower pole left kidney.
== END | disposition home or self-care (01) ==
LOC: RADUSWWP 08:40
PROVIDERS: ATTEND Urology
DX: N13.2 Hydronephrosis with renal and ureteral calculous obstruction (principal); N28.1 Cyst of kidney, acquired; Z87.442 Personal history of urinary calculi
CPT/HCPCS: 74018; 76770

== ENCOUNTER 2023-05-14 08:27 | Emergency (ER) | payer MEDICARE, OTHER ==
--- NOTE | 2023-05-14 08:43 | ED ---
General Adult HPI - General Source: patient, RN notes reviewed Mode of arrival: ambulatory Limitations: no limitations <Jerrod Serrano - Last Filed: 05/14/23 08:42> <Rudy Delvalle - Last Filed: 05/14/23 13:19> - General Stated complaint: Eye complaint Time Seen by Provider: 05/14/23 08:42 - History of Present Illness Initial comments: 67-year-old male presents emergency Department chief complaint right eye infection. Patient states started a few days ago some drainage he states is increase in swelling, discomfort around his right eye. Patient states cannot open his right eye secondary to swelling. (Jerrod Serrano) This is a 67-year-old male who presents to the emergency department complaining of swelling around his right eye yesterday. Patient states is getting worse. Patient states when he opens up his eyelids he is able to see fine but there is becoming more swollen and in the medial aspect of the right eye is extremely tender and swollen. Patient has had no fever chills. Patient states it does not hurt to look around. Patient denies any other symptoms at this time (Rudy Delvalle) - Related Data Home Medications Medication Instructions Recorded Confirmed Cholecalciferol (Vitamin D3) 2,000 unit PO HS 08/08/15 05/10/23 [Vitamin D3] Levothyroxine Sodium [Synthroid] 100 mcg PO QAM 08/08/15 05/10/23 Tamsulosin [Flomax] 0.4 mg PO HS 08/08/15 05/10/23 metFORMIN HCL 1,000 mg PO BID 08/08/15 05/10/23 Atorvastatin [Lipitor] 10 mg PO MOWEFR 02/29/16 05/10/23 glipiZIDE XL [Glucotrol XL] 5 mg PO QAM 01/06/17 05/10/23 Metoprolol Succinate (ER) [Toprol 25 mg PO HS 11/09/17 05/10/23 XL] lisinopriL 40 mg PO QAM 02/18/19 05/10/23 Famotidine [Pepcid] 20 mg PO BID 08/24/19 05/10/23 amLODIPine [Norvasc] 5 mg PO QAM 02/20/20 05/10/23 Previous Rx's Medication Instructions Recorded Ketorolac [Toradol] 10 mg PO Q6HR PRN #10 tab 04/27/22 Allergies Allergy/AdvReac Type Severity Reaction Status Date / Time Sulfa (Sulfonamide AdvReac Nausea & Verified 05/14/23 09:14 Antibiotics) Vomiting Review of Systems ROS Other: All systems not noted in ROS Statement are negative. <Jerrod Serrano - Last Filed: 05/14/23 08:42> ROS Other: All systems not noted in ROS Statement are negative. <Rudy Delvalle - Last Filed: 05/14/23 13:19> ROS Statement: Those systems with pertinent positive or pertinent negative responses have been documented in the HPI. Past Medical History Past Medical History: Cancer, Diabetes Mellitus, Hyperlipidemia, Hypertension, Prostate Disorder, Thyroid Disorder Additional Past Medical History / Comment(s): chronic back pain, colon CA, enlarged prostate, kidney stone. VITAMIN B12 DEFICIENCY. History of Any Multi-Drug Resistant Organisms: None Reported Past Surgical History: Bowel Resection, Cholecystectomy Additional Past Surgical History / Comment(s): LEFT LITHOTRIPSY IN MAR. Past Anesthesia/Blood Transfusion Reactions: No Reported Reaction Smoking Status: Former smoker - Past Family History Mother Family Medical History: Cancer, COPD, Diabetes Mellitus, GERD/Reflux Additional Family Medical History / Comment(s): lung cancer Sister(s) Family Medical History: Diabetes Mellitus <Jerrod Serrano - Last Filed: 05/14/23 08:42> General Exam <Jerrod Serrano - Last Filed: 05/14/23 08:42> <Rudy Delvalle - Last Filed: 05/14/23 13:19> - General Exam Comments Initial Comments: Visual Physical Exam Vital signs reviewed General: Well-appearing, nontoxic, no acute distress. Head: Normocephalic, atraumatic Eyes: PERRLA, EOMI ENT: Airway patent Chest: Nonlabored breathing Skin: No visual rash, normal skin tone Neuro: Alert and oriented 3 Musculoskeletal: No gross abnormalities (Jerrod Serrano) GENERAL Patient is well-developed and well-nourished. Patient is in mild distress. EYES Patient's pupils are equal and round. Extraocular motion is intact. Patient's eyelids were both swollen and fluctuant area in the medial aspect above the lacrimal duct. Conjunctivitis of the right eye. Patient is 20/50 of the right eye and 20/200 of the left SKIN Unremarkable NEURO The patient is alert and oriented 3 PYSCH Patient has normal interpersonal interactions. MUSCULOSKELETAL Patient's all 4 extremities have full range of motion (Rudy Delvalle) Course Vital Signs 05/14/23 09:11 Temperature 97.6 F Pulse Rate 90 Respiratory 18 Rate Blood Pressure 173/96 O2 Sat by Pulse 97 Oximetry Medical Decision Making <Jerrod Serrano - Last Filed: 05/14/23 08:42> - Lab Data Result diagrams: 05/14/23 09:16 05/14/23 09:16 <Rudy Delvalle - Last Filed: 05/14/23 13:19> - Medical Decision Making I completed the quick note portion of this chart signed Jerrod Serrano PA-C (Jerrod Serrano) Was pt. sent in by a medical professional or institution ([facility], [employer]ING [employer] OPERATOR, urgent care, hospital, or [facility]...) When possible be specific @ -No Did you speak to anyone other than the patient for history (EMS, parent, family, police, friend...)? What history was obtained from this source @ -No Did you review nursing and triage notes (agree or disagree)? Why? @ -I reviewed and agree with nursing and triage notes Were old charts reviewed (outside hosp., previous admission, EMS record, old EKG, old radiological studies, urgent care reports/EKG's, [facility] records)? Report findings @ -No old charts were reviewed Differential Diagnosis (chest pain, altered mental status, abdominal pain women, abdominal pain men, vaginal bleeding, weakness, fever, dyspnea, syncope, headache, dizziness, GI bleed, back pain, seizure, CVA, palpatations, mental health, musculoskeletal)? @ -Cellulitis, abscess, orbital cellulitis, stye, hordeolum this is not all inclusive list EKG interpreted by me (3pts min.). @ -As above X-rays interpreted by me (1pt min.). @ -None done CT interpreted by me (1pt min.). @ -As an abscess just medial to the right eye measuring 1.5 x 1 cm U/S interpreted by me (1pt. min.). @ -None done What testing was considered but not performed or refused? (CT, X-rays, U/S, labs)? Why? @ -None What meds were considered but not given or refused? Why? @ -None Did you discuss the management of the patient with other professionals (professionals i.e. , PA, TANNING WHEEL OPERATOR, lab, RT, psych nurse, sexual assault social worker, director plans, teacher, ambulance officer, community case manager)? Give summary @ -I spoke with Dr. Cowan who is not on-call but was gracious enough to take a phone call. Was smoking cessation discussed for >3mins.? @ -No Was critical care preformed (if so, how long)? @ -No Were there social determinants of health that impacted care today? How? (Homelessness, low income, unemployed, alcoholism, drug addiction, transportation, low edu. Level, literacy, decrease access to med. care, fci, rehab)? @ -No Was there de-escalation of care discussed even if they declined (Discuss DNR or withdrawal of care, Hospice)? DNR status @ -No What co-morbidities impacted this encounter? (DM, HTN, Smoking, COPD, CAD, Cancer, CVA, ARF, Chemo, Hep., AIDS, mental health diagnosis, sleep apnea, morbid obesity)? @ -None Was patient admitted / discharged? Hospital course, mention meds given and route, prescriptions, significant lab abnormalities, going to OR and other pertinent info. @ -Dr. Cowan wanted to see the patient in his office immediately and he will do it is necessary to take care of this patient's eye Undiagnosed new problem with uncertain prognosis? @ -No Drug Therapy requiring intensive monitoring for toxicity (Heparin, Nitro, Insulin, Cardizem)? @ -No Were any procedures done? @ -No Diagnosis/symptom? @ -Dacryocystitis with abscess Acute, or Chronic, or Acute on Chronic? @ -Acute Uncomplicated (without systemic symptoms) or Complicated (systemic symptoms)? @ -Complicated Side effects of treatment? @ -No Exacerbation, Progression, or Severe Exacerbation? @ -No Poses a threat to life or bodily function? How? (Chest pain, [place], [place], pneumonia, PE, COPD, DKA, ARF, appy, cholecystitis, CVA, Diverticulitis, Homicidal, Suicidal, threat to staff... and all critical care pts) @ -No (Rudy Delvalle) - Lab Data Lab Results 05/14/23 05/14/23 Range/Units 09:16 09:16 WBC 6.9 (3.8-10.6) k/uL RBC 4.65 (4.30-5.90) m/uL Hgb 15.1 (13.0-17.5) gm/dL Hct 42.6 (39.0-53.0) % MCV 91.5 (80.0-100.0) fL MCH 32.5 (25.0-35.0) pg MCHC 35.5 (31.0-37.0) g/dL RDW 13.0 (11.5-15.5) % Plt Count 207 (150-450) k/uL MPV 9.8 Neutrophils % 78 % Lymphocytes % 12 % Monocytes % 6 % Eosinophils % 3 % Basophils % 1 % Neutrophils # 5.4 (1.3-7.7) k/uL Lymphocytes # 0.8 L (1.0-4.8) k/uL Monocytes # 0.4 (0-1.0) k/uL Eosinophils # 0.2 (0-0.7) k/uL Basophils # 0.1 (0-0.2) k/uL Sodium 137 (137-145) mmol/L Potassium 4.6 (3.5-5.1) mmol/L Chloride 100 (98-107) mmol/L Carbon Dioxide 22 (22-30) mmol/L Anion Gap 15 mmol/L BUN 12 (9-20) mg/dL Creatinine 0.79 (0.66-1.25) mg/dL Est GFR (CKD-EPI)AfAm >90 (>60 ml/min/1.73 sqM) Est GFR (CKD-EPI)NonAf >90 (>60 ml/min/1.73 sqM) Glucose 267 H (74-99) mg/dL Calcium 9.1 (8.4-10.2) mg/dL Total Bilirubin 2.0 H (0.2-1.3) mg/dL AST 32 (17-59) U/L ALT 25 (4-49) U/L Alkaline Phosphatase 202 H (38-126) U/L Total Protein 7.4 (6.3-8.2) g/dL Albumin 4.3 (3.5-5.0) g/dL Disposition <Dedoe,Jerrod M - Last Filed: 05/14/23 08:42> Is patient prescribed a controlled substance at d/c from ED?: No Time of Disposition: 13:19 <Rudy Delvalle - Last Filed: 05/14/23 13:19> Clinical Impression: Phlegmonous dacryocystitis, Conjunctivitis Disposition: HOME SELF-CARE Additional Instructions: Patient is been instructed to follow-up with Dr. Cowan immediately Referrals: Raciel Cowan MD [STAFF PHYSICIAN] - As Soon As Possible
[2023-05-14 09:39] LABS: Basophils # (A) 0.1 k/uL (0-0.2); Basophils % (A) 1 %; Eosinophils # (A) 0.2 k/uL (0-0.7); Eosinophils % (A) 3 %; HCT 42.6 % (39.0-53.0); HGB 15.1 gm/dL (13.0-17.5); Lymphocytes # (A) 0.8 k/uL (1.0-4.8); Lymphocytes % (A) 12 %; MCH 32.5 pg (25.0-35.0); MCHC 35.5 g/dL (31.0-37.0); MCV 91.5 fL (80.0-100.0); Mean Platelet Volume 9.8; Monocytes # (A) 0.4 k/uL (0-1.0); Monocytes % (A) 6 %; Neutrophils # (A) 5.4 k/uL (1.3-7.7); Neutrophils % (A) 78 %; Platelet Count 207 k/uL (150-450); RBC 4.65 m/uL (4.30-5.90); WBC 6.9 k/uL (3.8-10.6)
[2023-05-14 09:49] LABS: ALT 25 U/L (4-49); AST 32 U/L (17-59); African American GFR (CKD) >90 (>60 ml/min/1.73 sqM); Albumin 4.3 g/dL (3.5-5.0); Alkaline Phosphatase 202 U/L (38-126); Anion Gap 15 mmol/L; Blood Urea Nitrogen 12 mg/dL (9-20); Calcium 9.1 mg/dL (8.4-10.2); Carbon Dioxide 22 mmol/L (22-30); Chloride 100 mmol/L (98-107); Glucose 267 mg/dL (74-99); Non-African American GFR(CKD) >90 (>60 ml/min/1.73 sqM); Sodium 137 mmol/L (137-145); Total Protein 7.4 g/dL (6.3-8.2)
[2023-05-14 10:00] LABS: Potassium 4.6 mmol/L (3.5-5.1)
--- NOTE | 2023-05-14 10:30 | CT ---
EXAMINATION TYPE: CT orbits w con DATE OF EXAM: 05/14/2023 COMPARISON: None HISTORY: right eye swelling CT DLP: 350.2 mGycm Automated exposure control for dose reduction was used. Contrast: 100 mL Isovue-300 Technique: Axial images 2 mm thick sections. Reconstructed images in the coronal plane FINDINGS: Superficial soft tissue swelling is around the right orbit. There is a hypodensity within the medial right orbital region measuring 1.4 x 1.0 cm. Small abscess should be suspected. This extends towards the lacrimal duct no cortical erosions are identified. Diffuse soft tissue thickening is in the right periorbital region. Correlate for cellulitis in additi on to the suspected abscess. Intraconal and extraconal fat appears normal. Optic nerve appears normal. Extraocular muscles appear normal. Report was called to the emergency room by Dr. Morales by telephone at the time of interpretation. IMPRESSION: 1. SUSPECTED RIGHT MEDIAL ORBITAL ABSCESS MEASURING 1.4 X 1.0 CM. 2. SUPERFICIAL SWELLING AROUND THE RIGHT ORBIT CAN BE SOME ADDITIONAL CELLULITIS.
[2023-05-14 13:58] VITALS: BP 156/86; PULSE 86; RESP 16; TEMP 98.5
== END 2023-05-14 13:46 | disposition home or self-care (01) ==
LOC: EC 08:27
DX: H04.301 Unspecified dacryocystitis of right lacrimal passage (principal); H10.9 Unspecified conjunctivitis; E11.9 Type 2 diabetes mellitus without complications; E78.5 Hyperlipidemia, unspecified; I10 Essential (primary) hypertension; E07.9 Disorder of thyroid, unspecified; Z79.84 Long term (current) use of oral hypoglycemic drugs; Z79.899 Other long term (current) drug therapy; Z79.890 Hormone replacement therapy; Z87.891 Personal history of nicotine dependence; Z88.2 Allergy status to sulfonamides
CPT/HCPCS: 36415; 80053; 85025; 70481; 99284; Q9967

== ENCOUNTER → 2024-11-17 | Outpatient (CLI) | payer MEDICARE, OTHER ==
--- NOTE | 2024-11-17 13:50 | US ---
EXAMINATION TYPE: US venous doppler duplex LE RT DATE OF EXAM: 11/17/2024 1:40 PM COMPARISON: NONE CLINICAL INDICATION: Male, 69 years old with history of M79.661 PAIN IN RIGHT LOWER LEG; Pain right l eg, Pain TECHNIQUE: The lower extremity deep venous system is examined utilizing real time linear array sonog tima with graded compression, color doppler sonography, and spectral doppler. SIDE PERFORMED: right FINDINGS: VESSELS IMAGED: Common Femoral Vein Deep Femoral Vein Greater Saphenous Vein * Femoral Vein Popliteal Vein Small Saphenous Vein * Proximal Calf Veins (* superficial vessels) Right Leg: No evidence of DVT as visualized , Color Doppler imaging shows patency of the vessels. Sp ectral waveforms are within normal limits. IMPRESSION: No evidence of deep vein thrombosis of the right lower extremity. [facility], , 11/17/2024 1:48 PM
[2024-11-17 18:46] LABS: Basophils # (A) 0.07 X 10*3/uL (0.00-0.10); Basophils % (A) 1.4 %; HCT 40.1 % (39.6-50.0); HGB 14.1 g/dL (13.0-17.0); Lymphocytes # (A) 0.64 X 10*3/uL (0.90-5.00); Lymphocytes % (A) 12.8 %; MCH 32.1 pg (27.0-32.0); MCHC 35.2 g/dL (32.0-37.0); MCV 91.3 FL (80.0-97.0); Monocytes # (A) 0.51 X 10*3/uL (0.20-1.00); Monocytes % (A) 10.2 %; NRBC Per 100 WBC 0 X 10*3/uL (0.00-0.01); Neutrophils # (A) 3.66 X 10*3/uL (1.80-7.70); Neutrophils % (A) 73.4 %; Platelet Count 199 X 10*3/uL (140-440); RBC 4.39 X 10*6/uL (4.40-5.60); RDW 12.5 % (11.5-14.5); WBC 4.99 X 10*3/uL (4.50-10.00)
[2024-11-17 22:04] LABS: ALT 22 U/L (10-49); AST 19 U/L (14-35); Albumin 4.2 g/dL (3.8-4.9); Albumin/Globulin Ratio 1.83 Ratio (1.60-3.17); Alkaline Phosphatase 148 U/L (41-126); BUN/Creat Ratio 13.55 Ratio (12.00-20.00); Blood Urea Nitrogen 14.9 mg/dL (9.0-27.0); Carbon Dioxide 21.6 mmol/L (21.6-31.8); Chloride 104 mmol/L (96-109); Globulin 2.3 g/dL (1.6-3.3); Glucose 180 mg/dL (70-110); Potassium 3.8 mmol/L (3.5-5.5); Sodium 138 mmol/L (135-145); Total Bilirubin 1.1 mg/dL (0.3-1.2); Total Protein 6.5 g/dL (6.2-8.2)
[2024-11-17 22:07] LABS: NT-Pro-B-Type Natriuretic Pept 80 pg/mL (0-125)
== END | disposition home or self-care (01) ==
LOC: RADUSWWP 13:00
PROVIDERS: ATTEND Family Medicine
DX: M79.661 Pain in right lower leg (principal); M79.89 Other specified soft tissue disorders
CPT/HCPCS: 80053; 83880; 85025

== ENCOUNTER 2024-12-29 09:11 | Emergency (ER) | payer MEDICARE, OTHER ==
[2024-12-29 09:24] VITALS: RESP 16
--- NOTE | 2024-12-29 09:35 | ED ---
Back Pain HPI - General Chief Complaint: Abdominal Pain Stated Complaint: R flank pain Time Seen by Provider: 12/29/24 09:13 Source: patient, EMS, RN notes reviewed Mode of arrival: EMS Limitations: no limitations - History of Present Illness Initial Comments: This is a 69-year-old male who presents to the emergency department for back pain. States that yesterday around noon he developed pain in the right flank area. He has some radiation into the abdomen. Reports urinary urgency with some decreased urine output. Also reports associated nausea. The pain has started to improve when compared with yesterday. Reports a history of kidney stones many years ago but is unsure if symptoms feel similar or not. Denies any changes in bowel habits. Denies any fevers or chills. MD Complaint: back pain - Related Data Home Medications Medication Instructions Recorded Confirmed Cholecalciferol (Vitamin D3) 2,000 unit PO HS 08/08/15 12/20/23 [Vitamin D3] Levothyroxine Sodium [Synthroid] 100 mcg PO QAM 08/08/15 12/20/23 Tamsulosin [Flomax] 0.4 mg PO HS 08/08/15 12/20/23 metFORMIN HCL 1,000 mg PO BID 08/08/15 12/20/23 Atorvastatin [Lipitor] 10 mg PO MOWEFR 02/29/16 12/20/23 glipiZIDE XL [Glucotrol XL] 5 mg PO QAM 01/06/17 12/20/23 Metoprolol Succinate (ER) [Toprol 25 mg PO HS 11/09/17 12/20/23 XL] lisinopriL 40 mg PO QAM 02/18/19 12/20/23 Famotidine [Pepcid] 20 mg PO BID 08/24/19 12/20/23 amLODIPine [Norvasc] 5 mg PO QAM 02/20/20 12/20/23 Previous Rx's Medication Instructions Recorded Ketorolac [Toradol] 10 mg PO Q6HR PRN #10 tab 04/27/22 HYDROcodone/APAP 5-325MG [[place] 1 tab PO Q6HR PRN 3 Days #12 tab 12/29/24 5-325] Ketorolac [Toradol] 10 mg PO Q6HR PRN #15 tab 12/29/24 Ondansetron Odt [Zofran Odt] 4 mg PO Q8HR PRN #15 tab 12/29/24 Tamsulosin [Flomax] 0.4 mg PO DAILY #5 cap 12/29/24 Allergies Allergy/AdvReac Type Severity Reaction Status Date / Time Sulfa (Sulfonamide AdvReac Nausea & Verified 12/29/24 11:53 Antibiotics) Vomiting Review of Systems ROS Statement: Those systems with pertinent positive or pertinent negative responses have been documented in the HPI. ROS Other: All systems not noted in ROS Statement are negative. Past Medical History Past Medical History: Cancer, Diabetes Mellitus, Hyperlipidemia, Hypertension, Prostate Disorder, Thyroid Disorder Additional Past Medical History / Comment(s): chronic back pain, colon CA, enlarged prostate, kidney stone. VITAMIN B12 DEFICIENCY. History of Any Multi-Drug Resistant Organisms: None Reported Past Surgical History: Bowel Resection, Cholecystectomy Additional Past Surgical History / Comment(s): LEFT LITHOTRIPSY IN MAR. Past Anesthesia/Blood Transfusion Reactions: No Reported Reaction Past Psychological History: No Psychological Hx Reported Smoking Status: Former smoker - Past Family History Mother Family Medical History: Cancer, COPD, Diabetes Mellitus, GERD/Reflux Additional Family Medical History / Comment(s): lung cancer Sister(s) Family Medical History: Diabetes Mellitus General Exam Limitations: no limitations General appearance: alert, in no apparent distress Head exam: Present: atraumatic, normocephalic, normal inspection Respiratory exam: Present: normal lung sounds bilaterally. Absent: respiratory distress, wheezes, rales, rhonchi, stridor Cardiovascular Exam: Present: regular rate, normal rhythm GI/Abdominal exam: Present: soft. Absent: distended, tenderness Back exam: Present: CVA tenderness (R). Absent: CVA tenderness (L) Neurological exam: Present: alert, oriented X3, CN II-XII intact Psychiatric exam: Present: normal affect, normal mood Skin exam: Present: warm, dry, intact, normal color. Absent: rash Course Vital Signs 12/29/24 12/29/24 12/29/24 09:15 09:22 11:36 Temperature 98.1 F Pulse Rate 94 89 75 Respiratory 18 16 16 Rate Blood Pressure 193/101 193/101 146/77 O2 Sat by Pulse 99 99 95 Oximetry Medical Decision Making - Medical Decision Making This is a 69 year old male who presents to the emergency department for back pain. Was pt. sent in by a medical professional or institution? @ -No Did you speak to anyone other than the patient for history? @ -No Did you review nursing and triage notes? @ -Yes, and I agree, it is accurate with regards to the patient's symptoms. Were old charts reviewed? @ -No Differential Diagnosis? @ -Differential Back Pain: Strain, zoster, cauda equina syndrome, epidural abscess, vertebral osteomyelitis, discitis, fracture, subluxation, disc herniation, DJD, spinal stenosis, dissection, AAA, pancreatitis, peptic ulcer disease, pyelonephritis, kidney stone, this is not meant to be an all-inclusive list. EKG interpreted by me (3pts min.)? @ -Not obtained X-rays interpreted by me (1pt min.)? @ -Not obtained CT interpreted by me (1pt min.)? @ -CT scan of the abdomen and pelvis obtained. My interpretation identifies a right ureteral calculus. U/S interpreted by me (1pt. min.)? @ -Not obtained What testing was considered but not performed? (CT, X-rays, U/S, labs)? Why? @ -None What meds were considered but not given? Why? @ -None Did you discuss the management of the patient with other professionals? @ -No Did you reconcile home meds? @ -No Was smoking cessation discussed for >3mins.? @ -No Was critical care preformed (if so, how long)? @ -No Were there social determinants of health that impacted care today? How? (Homelessness, low income, unemployed, alcoholism, drug addiction, transportation, low edu. Level, literacy, decrease access to med. care, assisted, rehab)? @ -No Was there de-escalation of care discussed even if they declined? (Discuss DNR or withdrawal of care, Hospice)? @ -No What co-morbidities impacted this encounter? (DM, HTN, Smoking, COPD, CAD, Cancer, CVA, Hep., AIDS, mental health diagnosis, sleep apnea, morbid obesity)? @ -DM, HTN, HLD, kidney stones Was patient admitted / discharged? @ -Discharged. Lab work unremarkable. Urinalysis demonstrates a small amount of blood. CT scan of the abdomen and pelvis demonstrates a 4 mm stone in the right distal ureter. He has some perinephric edema likely related to obstruction. They advised correlation to exclude a superimposed infection. However, urinalysis has no bacteria and is not suggestive of infection and laboratory studies do not represent infection as there is no leukocytosis, elevation in lactic acid, and patient is afebrile. Pain was well-controlled in the emergency department. Patient description for Toradol, [place], Flomax, and Zofran provided with dosing instructions reviewed. Information for follow-up with urology provided as well. Patient discharged home in stable condition. Case discussed with ED attending Dr. Gallegos. Return precautions reviewed in depth, the patient is instructed to return to the emergency department with any new, worsening, or concerning symptoms. Patient verbalized understanding. Undiagnosed new problem with uncertain prognosis? @ -None Drug Therapy requiring intensive monitoring for toxicity (Heparin, Nitro, Insulin, Cardizem)? @ -None Were any procedures done? @ -None Diagnosis/symptom? @ -Right ureteral calculus Acute, or Chronic, or Acute on Chronic? @ -Acute Uncomplicated (without systemic symptoms) or Complicated (systemic symptoms)? @ -Uncomplicated Side effects of treatment? @ -None Exacerbation, Progression, or Severe Exacerbation] @ -Not applicable Poses a threat to life or bodily function? @ -No - Lab Data Result diagrams: 12/29/24 09:41 12/29/24 09:41 Lab Results 12/29/24 12/29/24 12/29/24 Range/Units 09:41 09:41 09:41 WBC 5.91 (4.50-10.00) 10*3/uL RBC 4.48 (4.40-5.60) 10*6/uL Hgb 14.6 (13.0-17.0) g/dL Hct 39.5 L (39.6-50.0) % MCV 88.2 (80.0-97.0) fL MCH 32.6 H (27.0-32.0) pg MCHC 37.0 (32.0-37.0) g/dL Plt Count 180 (140-440) 10*3/uL MPV 10.8 (9.5-12.2) fL Immature Gran % (Auto) 0.3 % Neutrophils % 65.3 % Lymphocytes % 18.3 % Monocytes % 11.3 % Eosinophils % 3.6 % Basophils % 1.2 % Immature Gran # 0.02 (0.00-0.04) 10*3/uL Neutrophils # 3.86 (1.80-7.70) 10*3/uL Lymphocytes # 1.08 (0.90-5.00) 10*3/uL Monocytes # 0.67 (0.20-1.00) 10*3/uL Eosinophils # 0.21 (0.04-0.35) 10*3/uL Basophils # 0.07 (0.00-0.10) 10*3/uL Sodium 141 (137-145) mmol/L Potassium 3.5 (3.5-5.1) mmol/L Chloride 104 (98-107) mmol/L Carbon Dioxide 25 (22-30) mmol/L Anion Gap 12 mmol/L BUN 12 (9-20) mg/dL Creatinine 0.97 (0.66-1.25) mg/dL Est GFR (CKD-EPI)AfAm >90 (>60 ml/min/1.73 sqM) Est GFR (CKD-EPI)NonAf 80 (>60 ml/min/1.73 sqM) Glucose 137 H (74-99) mg/dL Plasma Lactic Acid Ari (0.7-2.0) mmol/L Calcium 9.5 (8.4-10.2) mg/dL Total Bilirubin 1.6 H (0.2-1.3) mg/dL AST 19 (17-59) U/L ALT 18 (4-49) U/L Alkaline Phosphatase 175 H (38-126) U/L Total Protein 7.1 (6.3-8.2) g/dL Albumin 4.4 (3.5-5.0) g/dL Urine Color Colorless Urine Appearance Clear (Clear) Urine pH 6.0 (5.0-8.0) Ur Specific [place] 1.008 (1.001-1.035) Urine Protein Negative (Negative) Urine Glucose (UA) Negative (Negative) Urine Ketones Negative (Negative) Urine Blood Small H (Negative) Urine Nitrite Negative (Negative) Urine Bilirubin Negative (Negative) Urine Urobilinogen <2.0 (<2.0) mg/dL Ur Leukocyte Esterase Trace H (Negative) Urine RBC 10 H (0-5) /hpf Urine WBC 9 H (0-5) /hpf Urine Mucus Rare H (None) /hpf 12/29/24 Range/Units 09:41 WBC (4.50-10.00) 10*3/uL RBC (4.40-5.60) 10*6/uL Hgb (13.0-17.0) g/dL Hct (39.6-50.0) % MCV (80.0-97.0) fL MCH (27.0-32.0) pg MCHC (32.0-37.0) g/dL Plt Count (140-440) 10*3/uL MPV (9.5-12.2) fL Immature Gran % (Auto) % Neutrophils % % Lymphocytes % % Monocytes % % Eosinophils % % Basophils % % Immature Gran # (0.00-0.04) 10*3/uL Neutrophils # (1.80-7.70) 10*3/uL Lymphocytes # (0.90-5.00) 10*3/uL Monocytes # (0.20-1.00) 10*3/uL Eosinophils # (0.04-0.35) 10*3/uL Basophils # (0.00-0.10) 10*3/uL Sodium (137-145) mmol/L Potassium (3.5-5.1) mmol/L Chloride (98-107) mmol/L Carbon Dioxide (22-30) mmol/L Anion Gap mmol/L BUN (9-20) mg/dL Creatinine (0.66-1.25) mg/dL Est GFR (CKD-EPI)AfAm (>60 ml/min/1.73 sqM) Est GFR (CKD-EPI)NonAf (>60 ml/min/1.73 sqM) Glucose (74-99) mg/dL Plasma Lactic Acid Ari 1.6 (0.7-2.0) mmol/L Calcium (8.4-10.2) mg/dL Total Bilirubin (0.2-1.3) mg/dL AST (17-59) U/L ALT (4-49) U/L Alkaline Phosphatase (38-126) U/L Total Protein (6.3-8.2) g/dL Albumin (3.5-5.0) g/dL Urine Color Urine Appearance (Clear) Urine pH (5.0-8.0) Ur Specific [place] (1.001-1.035) Urine Protein (Negative) Urine Glucose (UA) (Negative) Urine Ketones (Negative) Urine Blood (Negative) Urine Nitrite (Negative) Urine Bilirubin (Negative) Urine Urobilinogen (<2.0) mg/dL Ur Leukocyte Esterase (Negative) Urine RBC (0-5) /hpf Urine WBC (0-5) /hpf Urine Mucus (None) /hpf - Radiology Data Radiology results: report reviewed, image reviewed Disposition Clinical Impression: Right ureteral calculus Disposition: HOME SELF-CARE Instructions (If sedation given, give patient instructions): Renal Colic (ED), Ureteral Stones (ED) Additional Instructions: Return to the emergency department with any new, worsening, or concerning symptoms. Take the Flomax daily until you pass the stone or your pain resolves. Take the Toradol with Tylenol as needed for pain relief. If you choose to take the Toradol, do not take any other anti-inflammatories such as ibuprofen, take one or the other. Take the [place] sparingly when your pain is the most severe. Take the Zofran up to every 8 hours as needed for nausea and vomiting. Follow up with your primary care provider in 1-2 days. You can also follow-up with the urologist below if your symptoms persist. Prescriptions: Tamsulosin [Flomax] 0.4 mg PO DAILY #5 cap HYDROcodone/APAP 5-325MG [[place] 5-325] 1 tab PO Q6HR PRN 3 Days #12 tab PRN Reason: Pain Ketorolac [Toradol] 10 mg PO Q6HR PRN #15 tab PRN Reason: Pain Ondansetron Odt [Zofran Odt] 4 mg PO Q8HR PRN #15 tab PRN Reason: Nausea And Vomiting Is patient prescribed a controlled substance at d/c from ED?: Yes When asked, does pt state using other controlled substances?: No If prescribed controlled substance>3 days was MAPS reviewed?: Prescribed <3 Days Referrals: Ant Araya DO [Primary Care Provider] - 1-2 days Harman Gamboa MD [STAFF PHYSICIAN] - 1-2 days Time of Disposition: 11:53
[2024-12-29 09:51] LABS: Basophils # (A) 0.07 10*3/uL (0.00-0.10); Basophils % (A) 1.2 %; Eosinophils # (A) 0.21 10*3/uL (0.04-0.35); Eosinophils % (A) 3.6 %; HCT 39.5 % (39.6-50.0); HGB 14.6 g/dL (13.0-17.0); Lymphocytes # (A) 1.08 10*3/uL (0.90-5.00); Lymphocytes % (A) 18.3 %; MCH 32.6 pg (27.0-32.0); MCHC 37.0 g/dL (32.0-37.0); MCV 88.2 fL (80.0-97.0); Monocytes # (A) 0.67 10*3/uL (0.20-1.00); Monocytes % (A) 11.3 %; Neutrophils # (A) 3.86 10*3/uL (1.80-7.70); Neutrophils % (A) 65.3 %; Platelet Count 180 10*3/uL (140-440); RBC 4.48 10*6/uL (4.40-5.60); RDW 12.6 % (11.5-14.5); WBC 5.91 10*3/uL (4.50-10.00)
[2024-12-29 09:58] LABS: Bilirubin,Urine Negative (Negative); Blood,Urine Small (Negative); Color,Urine Colorless; Glucose,Urine (UA) Negative (Negative); Ketones,Urine Negative (Negative); Leukocyte Esterase,Urine Trace (Negative); Mucus,Urine Rare /hpf; Nitrite,Urine Negative (Negative); PH, Urine 6.0 (5.0-8.0); Protein,Urine Negative (Negative); RBC,Urine 10 /hpf (0-5); Specific Gravity,Urine 1.008 (1.001-1.035); Urobilinogen,Urine <2.0 mg/dL (<2.0); WBC,Urine 9 /hpf (0-5)
[2024-12-29 10:04] LABS: ALT 18 U/L (4-49); AST 19 U/L (17-59); African American GFR (CKD) >90 (>60 ml/min/1.73 sqM); Albumin 4.4 g/dL (3.5-5.0); Alkaline Phosphatase 175 U/L (38-126); Anion Gap 12 mmol/L; Blood Urea Nitrogen 12 mg/dL (9-20); Calcium 9.5 mg/dL (8.4-10.2); Carbon Dioxide 25 mmol/L (22-30); Chloride 104 mmol/L (98-107); Glucose 137 mg/dL (74-99); Non-African American GFR(CKD) 80 (>60 ml/min/1.73 sqM); Potassium 3.5 mmol/L (3.5-5.1); Sodium 141 mmol/L (137-145); Total Protein 7.1 g/dL (6.3-8.2)
[2024-12-29] MEDS: SODIUM CHLORIDE 0.9% 1,000 ML IV ONE (10:22)
[2024-12-29] MEDS: ONDANSETRON 4 MG/2 ML VIAL IVP STA (10:23)
[2024-12-29] MEDS: KETOROLAC 15 MG/ML 1 ML VIAL IVP STA (10:24)
--- NOTE | 2024-12-29 11:39 | CT ---
EXAMINATION TYPE: CT abdomen pelvis wo con DATE OF EXAM: 12/29/2024 10:03 AM COMPARISON: 02/15/2022 and 12/12/2016 CLINICAL INDICATION: Male, 69 years old with history of Right flank pain; TECHNIQUE: CT of the abdomen and pelvis without contrast. Coronal and sagittal reconstructions perfor [facility]. DLP: 1099.2 Automated exposure control for dose reduction was used. FINDINGS: LOWER CHEST: Heart upper limits of normal size with trace anterior pericardial effusion. Some strandy areas of atelectasis in the lower lungs. Mild emphysematous change. ABDOMEN LIVER: Unremarkable GALLBLADDER AND BILE DUCTS: Unremarkable. PANCREAS: Unremarkable. SPLEEN: Unremarkable. ADRENAL GLANDS: There is a 2.2 cm low density nodule left adrenal gland in keeping with lipid rich ad renal adenoma. Right adrenal gland shows mild thickening without discrete nodularity. KIDNEYS AND URETERS: Approximately 3 nonobstructive stones are present measuring up to 3 mm. 1.1 cm e xophytic medial lower pole left renal cyst. 2 nonobstructive right renal stones measuring up to 6 mm. A couple underlying renal cortical cysts me asuring up to 1.9 cm. There is [id number] right-sided hydronephrosis and right-sided perinephri c edema. There is a 4 mm stone distal right ureter just prior to the UVJ. PELVIS BLADDER: Mild circumferential bladder wall thickening and some mild perivesicular fat stranding. REPRODUCTIVE: Patulous left inguinal canal. Prostate gland normal size at 3.9 cm. Pelvic phleboliths. No abnormal fluid collection in the pelvis. ABDOMEN & PELVIS STOMACH AND BOWEL: No evidence of bowel obstruction. Scattered mild stool. Normal appendix. No mayo lonic inflammatory change. PERITONEUM/RETROPERITONEUM: No evidence of pneumoperitoneum or free fluid. VASCULATURE: No evidence of aortic aneurysm. MUSCULOSKELETAL: Moderate degenerative change both hips. Mild degenerative disc disease lower thoraci c spine. LYMPH NODES: No gross evidence for lymphadenopathy. SOFT TISSUE/ABDOMINAL WALL: There is a 7.3 x 5.9 x 3.6 cm intramuscular fatty tumor anterior proximal thigh joint minimal internal strandy density. 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 IMPRESSION: 1. 4 mm stone distal right ureter with [id number] obstructive uropathy. Right-sided perinephri c edema likely reactive to the obstruction. Correlate to exclude superimposed infection. 2. Additional few nonobstructive bilateral nephrolithiasis measuring up to 6 mm. 3. Mild circumferential bladder wall thickening and mild perivesicular fat stranding. Correlate to ex clude cystitis. 4. Incidental 2.2 cm lipid rich left adrenal adenoma. 5. Some strandy density within a 7.3 cm intramuscular fatty lesion anterior proximal right thigh. Sta bility from 2017 suggests a benign etiology such as an atypical lipomatous tumor. Recommend clinical follow-up. If any palpable abnormality develops, this area can be reassessed by imaging. [facility], , 12/29/2024 11:36 AM
[2024-12-29 12:11] VITALS: BP 173/91; PULSE 83; TEMP 98.8
== END 2024-12-29 12:14 | disposition home or self-care (01) ==
LOC: EC 09:11
DX: N20.1 Calculus of ureter (principal); E11.9 Type 2 diabetes mellitus without complications; I10 Essential (primary) hypertension; E78.5 Hyperlipidemia, unspecified; Z87.891 Personal history of nicotine dependence; Z88.2 Allergy status to sulfonamides
CPT/HCPCS: 36415; 80053; 83605; 85025; 81001; 74176; 99285; 96374; 96375; 96361; J2405; J1885